=== PATIENT | female | born 1985 | race American Indian/Alaskan Native ===

== ENCOUNTER 2017-03-31 11:28 | Emergency (ER) | payer MEDICAID ==
[~2017-03-31] VITALS: Ht 167.6 cm; Wt 146.5 kg
[~2017-03-31 11:28] MED LIST: IBUP800T PO
[2017-03-31] MEDS ORDERED: SODIUM CHLORIDE FLUSH 10ML SYR IVF ONE (12:30)
[2017-03-31] MEDS ORDERED: LORazepam 2 MG/ML, 1ML IVPush ONE (12:30)
[2017-03-31 12:47] LABS: ASPARTATE AMINO TRANSFERASE 125 U/L (15-37); BLOOD UREA NITROGEN 9 mg/dL (7-18)
[2017-03-31] MEDS ORDERED: LORazepam 2 MG/ML, 1ML ONE (12:57)
[2017-03-31 14:30] VITALS: BP 127/82
== END 2017-03-31 14:52 | disposition home or self-care (01) ==
LOC: ED 14:20
DX: R00.2 Palpitations (principal)
CPT/HCPCS: 36415; 71020; 80053; 83880; 84436; 84443; 84484; 85025; 85379; 93005; 96374; 99285; J2060

== ENCOUNTER 2018-08-17 18:30 | Emergency (ER) | payer MEDICAID ==
[~2018-08-17] VITALS: Ht 167.6 cm; Wt 140.4 kg
[~2018-08-17 18:30] MED LIST changes: +IBUP-1223 PO; -IBUP800T PO
[2018-08-17 18:41] VITALS: BP 181/112
== END 2018-08-17 19:20 | disposition home or self-care (01) ==
LOC: ED 19:00
DX: M79.5 Residual foreign body in soft tissue (principal)
CPT/HCPCS: 29505; 99284

== ENCOUNTER 2019-01-18 09:21 | Emergency (ER) | payer MEDICAID ==
[~2019-01-18] VITALS: Ht 167.6 cm; Wt 120.0 kg
[2019-01-18] MEDS ORDERED: HYDROcodone/APAP 5/325 TABLET PO ONE (09:30)
[2019-01-18 09:35] VITALS: BP 137/62
--- NOTE | 2019-01-18 09:44 | NUR ---
GLF HISTORY OF KNEE SURGERY PT HAS LEFT KNEE PAIN, UNABLE TO BEAR WEIGHT. PT STATES SHE [place].
[2019-01-18] MEDS ORDERED: HYDROcodone/APAP 5/325 TABLET ONE (09:48)
--- NOTE | 2019-01-18 11:20 | NUR ---
PT VERBALIZED DC INSTRUCTIONS. AMBULATED WITH CRUTCHES AND IMMOBILIZER WITHOUT PROBLEMS.
== END 2019-01-18 11:23 | disposition home or self-care (01) ==
LOC: ED 10:06
DX: S83.92XA Sprain of unspecified site of left knee, initial encounter (principal); M25.462 Effusion, left knee; X50.1XXA Overexertion from prolonged static or awkward postures, initial encounter; Y93.89 Activity, other specified; Y92.410 Unspecified street and highway as the place of occurrence of the external cause; Y99.8 Other external cause status
CPT/HCPCS: 29505; 99283

== ENCOUNTER 2019-03-20 13:04 | Outpatient (CLI) | payer MEDICAID ==
[2019-03-20] MEDS ORDERED: BENZ-17 PO (13:37)
[2019-03-20] MEDS ORDERED: IBUP-1221 PO (13:37)
== END 2019-03-20 23:59 | disposition home or self-care (01) ==
LOC: STAR 13:04
PROVIDERS: ATTEND Orthopaedic Surgery
DX: Z02.9 Encounter for administrative examinations, unspecified (principal)

== ENCOUNTER 2019-03-24 11:35 | Day surgery (SDC) | payer MEDICAID ==
[2019-03-20 13:37] VITALS: BP 151/96
[~2019-03-24] VITALS: Ht 167.6 cm; Wt 128.4 kg
[~2019-03-24 11:35] MED LIST changes: +BENZ-17 PO; +IBUP-1221 PO
[2019-03-24] MEDS ORDERED: LACTATED RINGERS 1,000 ML IV SCH (11:58)
[2019-03-24] MEDS ORDERED: APREPITANT 40 MG CAPSULE PO ONE (12:00)
[2019-03-24 12:13] VITALS: BP 151/96
[2019-03-24 12:23] LABS: HCG UR SG 1.022 (1.003-1.030)
[2019-03-24] MEDS ORDERED: MIDAZOLAM 1 MG/ML, 2ML ONE (13:03)
[2019-03-24] MEDS ORDERED: CEFAZOLIN 1,000 MG ONE ×3 (14:07)
[2019-03-24] MEDS ORDERED: PROPOFOL 10 MG/ML, 20ML ONE ×4 (14:07→15:13)
[2019-03-24] MEDS ORDERED: ROCURONIUM 10MG/ML,5ML ONE (14:07)
[2019-03-24] MEDS ORDERED: SUCCINYLCHOLINE 20 MG/ML, 10ML ONE (14:07)
[2019-03-24] MEDS ORDERED: LIDOCAINE-MPF 2% ,5ML ONE (14:07)
[2019-03-24] MEDS ORDERED: ONDANSETRON 2MG/ML, 2ML ONE (14:12)
[2019-03-24] MEDS ORDERED: DEXAMETHASONE 4 MG/ML, 1ML ONE ×2 (14:12→15:16)
[2019-03-24] MEDS ORDERED: LIDOCAINE 1%, 20ML ONE (14:18)
[2019-03-24] MEDS ORDERED: morphine SULFATE/PF 1 MG/ML, 10ML ONE (14:18)
[2019-03-24] MEDS ORDERED: EPINEPHRINE 1 MG/ML, 1ML ONE (14:18)
[2019-03-24] MEDS ORDERED: SUGAMMADEX 200 MG/2 ML IVPush ONE ×2 (14:19→14:20)
[2019-03-24] MEDS ORDERED: FENTANYL PF 100 MCG/2ML ONE ×3 (14:27→15:46)
[2019-03-24] MEDS ORDERED: OXYcodone 5 MG/5 ML ORAL.SOL UDC PO PRN (14:30)
[2019-03-24] MEDS ORDERED: KETOROLAC 30 MG/1 ML IM PRN ×2 (14:30)
[2019-03-24] MEDS ORDERED: MORPHINE SULFATE 4 MG/ML, 1ML IVPush PRN (14:30)
[2019-03-24] MEDS ORDERED: ACETAMINOPHEN 325 MG TABLET PO PRN ×2 (14:30→21:00)
[2019-03-24] MEDS ORDERED: HYDROcodone/APAP 7.5-325MG/15ML UDC PO PRN (14:30)
[2019-03-24] MEDS ORDERED: MEPERIDINE/PF 25MG/0.5ML IVPush PRN (14:30)
[2019-03-24] MEDS ORDERED: KETOROLAC 30 MG/1 ML IV PRN ×2 (14:30)
[2019-03-24] MEDS ORDERED: BACITRACIN 50,000 UNIT ONE (15:07)
[2019-03-24] MEDS ORDERED: ALBUTEROL HFA 90 MCG/SPRAY ONE (15:30)
[2019-03-24] MEDS ORDERED: OXYcodone 5 MG/5 ML ORAL.SOL UDC ONE (15:47)
[2019-03-24] MEDS ORDERED: HYDROmorphone 2 MG/ML, 1ML ONE (15:47)
[2019-03-24] MEDS: FENTANYL PF 100 MCG/2ML IV PRN ×2 (15:49→15:55)
[2019-03-24] MEDS: HYDROmorphone 2 MG/ML, 1ML IVPush PRN ×3 (15:49→16:06)
[2019-03-24] MEDS ORDERED: ONDANSETRON 2MG/ML, 2ML IVPush PRN (20:45)
[2019-03-24] MEDS ORDERED: PROMETHAZINE 25 MG/ML, 1ML IM PRN (21:00)
[2019-03-24] MEDS ORDERED: ONDANSETRON 2MG/ML, 2ML IV PRN (21:00)
[2019-03-24] MEDS ORDERED: morphine SULFATE 10 MG/ML, 1ML IV PRN (21:00)
[2019-03-24] MEDS ORDERED: KETOROLAC 30 MG/1 ML IV SCH (21:00)
[2019-03-24] MEDS ORDERED: OXYcodone/APAP 5/325MG TABLET PO PRN (21:00)
== END 2019-03-24 21:35 | disposition home or self-care (01) ==
LOC: OUT 11:35 → 4NOR 18:45 → OUT 21:35
PROVIDERS: ATTEND Orthopaedic Surgery
DX: Z47.2 Encounter for removal of internal fixation device (principal); M66.862 Spontaneous rupture of other tendons, left lower leg; Z87.891 Personal history of nicotine dependence; Z72.89 Other problems related to lifestyle
CPT/HCPCS: 20680; 27381; 73560; 76000; 81025; G0378; J0171; J0330; J0690; J1100; J1170; J2250; J2405; J2704; J3010; J7120; J8501; J2274

== ENCOUNTER 2019-07-04 16:07 | Emergency (ER) | payer MEDICAID ==
[~2019-07-04] VITALS: Ht 167.6 cm; Wt 124.9 kg
[2019-07-04 16:56] LABS: ALANINE AMINOTRANSFERASE 60 U/L (12-78); ALBUMIN 2.4 g/dL (3.4-5.0); ANION GAP 12 mmol/L (5-15); CALCIUM 7.4 mg/dL (8.5-10.1); CHLORIDE 111 mmol/L (98-107); CREATININE 0.68 mg/dL (0.55-1.02)
[2019-07-04 17:01] LABS: ALKALINE PHOSPHATASE 173 U/L (45-117); BILIRUBIN,TOTAL 3.2 mg/dL (0.2-1.0); TOTAL PROTEIN 8.7 g/dL (6.4-8.2)
[2019-07-04 17:02] VITALS: BP 118/69
--- NOTE | 2019-07-04 17:02 | NUR ---
pt resting in gurney with friend at bedside. call light within reach. no needs at this time. awaiting lab reults
[2019-07-04 17:16] LABS: MEAN CORPUSCULAR HEMOGLOBIN 25.9 pg (27.0-34.8); MEAN CORPUSCULAR HGB CONC 32.3 g/dL (32.4-35.8); MEAN CORPUSCULAR VOLUME 80.1 fL (80-100); MEAN PLATELET VOLUME 9.7 fL (7.4-10.4); PLATELET COUNT 210 x10^3/uL (130-400); RED BLOOD COUNT 3.91 x10^6/uL (3.82-5.3); RED CELL DISTRIBUTION WIDTH 22.7 % (9.6-15.2)
[2019-07-04 17:22] LABS: BASOPHILS # (AUTO) 0.06 x10^3/uL (0-0.1); BASOPHILS % (AUTO) 1 % (0-1); EOSINOPHILS % (AUTO) 6 % (1-7); LYMPHOCYTES # (AUTO) 2.12 x10^3/uL (1-3.4); LYMPHOCYTES % (AUTO) 26 % (22-44); MD MORPH REVIEW ONLY; MONOCYTES # (AUTO) 0.47 x10^3/uL (0.2-0.8); MONOCYTES % (AUTO) 6 % (2-9); NEUTROPHILS # (AUTO) 4.94 x10^3/uL (1.8-6.8); NEUTROPHILS % (AUTO) 61 % (42-75)
[2019-07-04 17:24] LABS: ANISOCYTOSIS 2+; MICROCYTOSIS 1+
[2019-07-04 17:25] LABS: HYPOCHROMIA 1+; POLYCHROMASIA 1+; TARGET CELLS 1+
[2019-07-04 17:26] LABS: <PLATELET ESTIMATE> ADEQUATE; <PLT MORPHOLOGY> NORMAL PLT MORPH
== END 2019-07-04 17:48 | disposition home or self-care (01) ==
LOC: ED 16:25
DX: F10.220 Alcohol dependence with intoxication, uncomplicated (principal); E66.9 Obesity, unspecified
CPT/HCPCS: 36415; 80053; 80307; 83690; 84703; 85025; 99283

== ENCOUNTER 2019-12-06 15:18 | Emergency (ER) | payer MEDICAID ==
[~2019-12-06] VITALS: Ht 165.1 cm; Wt 118.0 kg
--- NOTE | 2019-12-06 15:30 | NUR ---
PT AMBULATORY WITH STEADY GAIT TO ROOM. CHANGING INTO GOWN NOW.
[2019-12-06 15:38] VITALS: BP 98/76
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
[2019-12-06] MEDS ORDERED: LIDOCAINE-MPF 1%, 5ML ONE (16:00)
[2019-12-06] MEDS ORDERED: LIDOCAINE 1%, 10ML INFIL ONE (16:00)
--- NOTE | 2019-12-06 16:23 | NUR ---
PT TO CT NOW.
--- NOTE | 2019-12-06 16:33 | NUR ---
PT BACK FROM CT. RESTING ON [employer]. CONNECTED TO MONITOR.
[2019-12-06] MEDS ORDERED: ONDANSETRON ODT 4 MG ONE (17:07)
--- NOTE | 2019-12-06 17:09 | NUR ---
PT MEDICATED PER EMAR. AWARE OF DC. GETTING DRESSED NOW.
[2019-12-06] MEDS ORDERED: ONDANSETRON ODT 4 MG PO ONE (17:30)
== END 2019-12-06 17:29 | disposition home or self-care (01) ==
LOC: ED 16:50
DX: S01.21XA Laceration without foreign body of nose, initial encounter (principal); W50.0XXA Accidental hit or strike by another person, initial encounter; Y93.89 Activity, other specified; Y92.89 Other specified places as the place of occurrence of the external cause; Y99.8 Other external cause status
CPT/HCPCS: 12051; 70450; 70486; 99284; Q0162; 12041

== ENCOUNTER 2019-12-16 07:48 | Emergency (ER) | payer MEDICAID ==
[~2019-12-16] VITALS: Ht 167.6 cm; Wt 118.0 kg
[2019-12-16 07:52] VITALS: BP 153/86
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
--- NOTE | 2019-12-16 09:02 | NUR ---
PT UPRIGHT ON GURNEY AWAKE & COMFORTABLE, RESPONDS APPROP TO STAFF, NAD WHILE AT REST, COMFORT MEASURES PROVIDED, FAMILY AT BS, CALL LIGHT WITHIN REACH.
--- NOTE | 2019-12-16 09:47 | NUR ---
Patient given discharge instructions and Rx, they have confirmed that they understand the instructions. Patient ambulatory with steady gait.
== END 2019-12-16 09:48 | disposition home or self-care (01) ==
LOC: ED 08:17
DX: L03.116 Cellulitis of left lower limb (principal)
CPT/HCPCS: 99283

== ENCOUNTER 2019-12-29 16:11 | Inpatient (IN) | payer MEDICAID ==
[~2019-12-29] VITALS: Ht 167.6 cm; Wt 127.8 kg
[~2019-12-29 16:11] MED LIST changes: +CLIN300C8 PO; +GUAI600T31 PO
--- NOTE | 2019-12-29 16:21 | NUR ---
pt BIB by [facility] for C/O increase swelling to the left knee. pt verbalized that she was discharged from the hospital yesterday with a diagnosis of cellulitis. pt verbaized that she has been taking her antibodics as perscribed. pt changed into a hospital gown and connected to monitors.
--- NOTE | 2019-12-29 17:02 | NUR ---
dr guy spoke with dr dixon with [facility]
[2019-12-29 17:19] LABS: ALANINE AMINOTRANSFERASE 20 U/L (12-78); ALBUMIN 1.8 g/dL (3.4-5.0); ANION GAP 5 mmol/L (5-15); CALCIUM 7.2 mg/dL (8.5-10.1); CHLORIDE 109 mmol/L (98-107); CREATININE 0.65 mg/dL (0.55-1.02)
[2019-12-29 17:20] LABS: ALKALINE PHOSPHATASE 120 U/L (45-117); BILIRUBIN,TOTAL 2.4 mg/dL (0.2-1.0); TOTAL PROTEIN 7.9 g/dL (6.4-8.2)
[2019-12-29 17:29] LABS: MEAN CORPUSCULAR HEMOGLOBIN 27.8 pg (27.0-34.8); MEAN CORPUSCULAR HGB CONC 32.2 g/dL (32.4-35.8); MEAN CORPUSCULAR VOLUME 86.4 fL (80-100); MEAN PLATELET VOLUME 9.2 fL (7.4-10.4); PLATELET COUNT 133 x10^3/uL (130-400); RED BLOOD COUNT 2.82 x10^6/uL (3.82-5.3); RED CELL DISTRIBUTION WIDTH 20.8 % (9.6-15.2)
[2019-12-29 18:03] LABS: BASOPHILS # (AUTO) 0.01 x10^3/uL (0-0.1); BASOPHILS % (AUTO) 0 % (0-1); EOSINOPHILS # (AUTO) 0.23 x10^3/uL (0-0.4); EOSINOPHILS % (AUTO) 5 % (1-7); LYMPHOCYTES # (AUTO) 1.25 x10^3/uL (1-3.4); LYMPHOCYTES % (AUTO) 29 % (22-44); MD NO; MONOCYTES # (AUTO) 0.66 x10^3/uL (0.2-0.8); MONOCYTES % (AUTO) 16 % (2-9); NEUTROPHILS % (AUTO) 49 % (42-75)
--- NOTE | 2019-12-29 18:19 | NUR ---
pt eating food supplied by sig other. Updated on current POC to be admitted and start IV ABX. pt and sig other agreeable. Requesting single room. Discussed that pt may not be in a single room depending on the floor/needs of the hospital/severity of conditions. pt agreeable.
[2019-12-29] MEDS ORDERED: CLINDAMYCIN PMX 900MG/50ML 50 ML IV ONE (18:30)
[2019-12-29] MEDS ORDERED: CLINDAMYCIN PMX 900MG/50ML 50 ML ONE (18:33)
--- NOTE | 2019-12-29 19:10 | NUR ---
Report from Vicenta SANDOVAL. Pt c/o left knee ache 07/11, side rails up, call light within reach.
--- NOTE | 2019-12-29 19:16 | NUR ---
Report given to Beverly SANDOVAL.
[2019-12-29] MEDS ORDERED: DOCUSATE 100 MG CAPSULE PO PRN (20:00)
[2019-12-29] MEDS ORDERED: VANCOMYCIN PER PHARMACY MC PRN (20:00)
[2019-12-29] MEDS ORDERED: ACETAMINOPHEN 325 MG TABLET PO PRN (20:00)
[2019-12-29] MEDS ORDERED: ONDANSETRON ODT 4 MG PO PRN (20:00)
[2019-12-29] MEDS ORDERED: hydrALAzine 20 MG/ML, 1ML IVPush PRN (20:00)
[2019-12-29] MEDS ORDERED: morphine SULFATE 10 MG/ML, 1ML IVPush PRN (20:00)
[2019-12-29] MEDS ORDERED: POLYETHYLENE GLYCOL 17 GM PACKET PO PRN (20:00)
[2019-12-29] MEDS ORDERED: ONDANSETRON 2MG/ML, 2ML IVPush PRN (20:00)
[2019-12-29] MEDS ORDERED: VANCOMYCIN PMX 1GM/200ML 200 ML IV ONE (20:00)
[2019-12-29] MEDS ORDERED: BISACODYL 10 MG SUPP PR PRN (20:00)
[2019-12-29] MEDS ORDERED: PROMETHAZINE 25 MG/ML, 1ML IM PRN (20:00)
[2019-12-29 20:14] LABS: HCT (SEDRATE) 24.4 % (34.6-47.8)
[2019-12-29 20:26] LABS: C-REACTIVE PROTEIN, QUANT 6.1 mg/dL (0.02-0.49); FREE T4 (FREE THYROXINE) 1.47 ng/dL (0.76-1.46)
[2019-12-29] MEDS ORDERED: PHARMACOKINETIC MONITORING MC PRN (20:30)
[2019-12-29] MEDS ORDERED: PHARMACOKINETIC CONSULTATION MC ONE (20:30)
[2019-12-29 20:34] VITALS: BP 127/79
[2019-12-29] MEDS: AMPICILLIN/SULBACTAM 3 GM in SODIUM CHLORIDE 0.9% 100 ML IV SCH (22:07)
[2019-12-29] MEDS: HYDROcodone/APAP 5/325 TABLET PO PRN (22:07)
[2019-12-29] MEDS: HEPARIN 5,000 UNITS/ML, 1ML SQ SCH (22:08)
[2019-12-29] MEDS: VANCOMYCIN 1,700 MG in SODIUM CHLORIDE 0.9% 250 ML IV SCH (23:18)
[2019-12-30 01:00] VITALS: BP 130/82
[2019-12-30] MEDS: AMPICILLIN/SULBACTAM 3 GM in SODIUM CHLORIDE 0.9% 100 ML IV SCH ×3 (04:30→18:05)
[2019-12-30] MEDS: HEPARIN 5,000 UNITS/ML, 1ML SQ SCH ×3 (06:29→23:02)
[2019-12-30 06:50] LABS: MEAN CORPUSCULAR HGB CONC 31.9 g/dL (32.4-35.8); MEAN CORPUSCULAR VOLUME 87.7 fL (80-100); MEAN PLATELET VOLUME 8.7 fL (7.4-10.4); PLATELET COUNT 131 x10^3/uL (130-400); RED BLOOD COUNT 2.67 x10^6/uL (3.82-5.3); RED CELL DISTRIBUTION WIDTH 20.6 % (9.6-15.2)
[2019-12-30 06:51] LABS: ALANINE AMINOTRANSFERASE 18 U/L (12-78); ALBUMIN 1.7 g/dL (3.4-5.0); ANION GAP 4 mmol/L (5-15); CALCIUM 7.2 mg/dL (8.5-10.1); CHLORIDE 112 mmol/L (98-107)
[2019-12-30 06:54] LABS: ALKALINE PHOSPHATASE 99 U/L (45-117); BILIRUBIN,TOTAL 2.6 mg/dL (0.2-1.0); CHOL/HDL RATIO 3.7; CHOLESTEROL, TOTAL 78 mg/dL (140-239); CREATININE 0.59 mg/dL (0.55-1.02); HDL CHOL % 27 % (28-40); HDL CHOLESTEROL (DIRECT) 21 mg/dL (40-60); LDL CHOLESTEROL,CALCULATED 43 mg/dL (54-169); TOTAL PROTEIN 7.4 g/dL (6.4-8.2); TRIGLYCERIDES 70 mg/dL (50-200); VLDL CHOLESTEROL 14 mg/dL (0-25)
[2019-12-30 07:25] LABS: MD YES
[2019-12-30 07:28] LABS: EOS#(MANUAL) 0.22 x10^3/uL (0.0-0.4); EOS% (MANUAL) 8 % (1-7); LYMPH#(MANUAL) 1.06 x10^3/uL (1-3.4); LYMPHS% (MANUAL) 38 % (22-44); MONOS#(MANUAL) 0.14 x10^3/uL (0.3-2.7); MONOS% (MANUAL) 5 % (2-9); SEG#(MANUAL) 1.37 x10^3/uL (1.8-6.8); SEGS% (MANUAL) 49 % (42-75)
[2019-12-30 07:29] LABS: <PLATELET ESTIMATE> ADEQUATE; <PLT MORPHOLOGY> NORMAL PLT MORPH; ANISOCYTOSIS 2+; POLYCHROMASIA 1+
[2019-12-30] MEDS ORDERED: MAGNESIUM SULFATE 3 GM in SODIUM CHLORIDE 0.9% 100 ML IV ONE (08:30)
[2019-12-30 08:49] VITALS: BP 135/85
[2019-12-30] MEDS ORDERED: GADOTERATE 7.5 MMOL/15 ML SYR ONE (13:33)
[2019-12-30] MEDS: VANCOMYCIN 1,700 MG in SODIUM CHLORIDE 0.9% 250 ML IV SCH ×2 (13:47→23:02)
[2019-12-30 16:30] VITALS: BP 130/81
[2019-12-30] MEDS ORDERED: FERROUS GLUCONATE 324 MG TABLET ONE (17:46)
[2019-12-30] MEDS: FERROUS GLUCONATE 324 MG TABLET PO SCH (18:05)
[2019-12-30 19:30] VITALS: BP 117/74
[2019-12-31] MEDS: AMPICILLIN/SULBACTAM 3 GM in SODIUM CHLORIDE 0.9% 100 ML IV SCH ×4 (00:33→20:54)
[2019-12-31] MEDS: HYDROcodone/APAP 5/325 TABLET PO PRN (01:48)
[2019-12-31 02:10] VITALS: BP 131/78
[2019-12-31 05:53] LABS: MEAN CORPUSCULAR HEMOGLOBIN 27.9 pg (27.0-34.8); MEAN CORPUSCULAR VOLUME 87.2 fL (80-100); MEAN PLATELET VOLUME 8.8 fL (7.4-10.4); PLATELET COUNT 141 x10^3/uL (130-400); RED BLOOD COUNT 2.66 x10^6/uL (3.82-5.3); RED CELL DISTRIBUTION WIDTH 21.5 % (9.6-15.2)
[2019-12-31] MEDS: HEPARIN 5,000 UNITS/ML, 1ML SQ SCH ×3 (05:56→20:54)
[2019-12-31 05:57] LABS: ALBUMIN 1.6 g/dL (3.4-5.0); CALCIUM 7.2 mg/dL (8.5-10.1); CHLORIDE 112 mmol/L (98-107)
[2019-12-31 06:04] LABS: ALANINE AMINOTRANSFERASE 18 U/L (12-78); ALKALINE PHOSPHATASE 109 U/L (45-117); ANION GAP 4 mmol/L (5-15); BILIRUBIN,TOTAL 2.5 mg/dL (0.2-1.0); CREATININE 0.57 mg/dL (0.55-1.02); TOTAL PROTEIN 7.5 g/dL (6.4-8.2)
[2019-12-31 06:21] LABS: MD YES
[2019-12-31 06:26] LABS: <PLATELET ESTIMATE> ADEQUATE; <PLT MORPHOLOGY> NORMAL PLT MORPH; ANISOCYTOSIS 2+; BASOS#(MANUAL) 0.05 x10^3/uL (0-0.1); BASOS% (MANUAL) 2 % (0-1); EOS#(MANUAL) 0.28 x10^3/uL (0.0-0.4); EOS% (MANUAL) 12 % (1-7); LYMPH#(MANUAL) 0.94 x10^3/uL (1-3.4); LYMPHS% (MANUAL) 41 % (22-44); MONOS#(MANUAL) 0.39 x10^3/uL (0.3-2.7); MONOS% (MANUAL) 17 % (2-9); MYELOCYTES# (MANUAL) 0.02 x10^3/uL (0-0); MYELOCYTES% (MANUAL) 1 % (0-0); POLYCHROMASIA 1+; SEG#(MANUAL) 0.62 x10^3/uL (1.8-6.8); SEGS% (MANUAL) 27 % (42-75)
[2019-12-31 09:08] VITALS: BP 118/73
[2019-12-31] MEDS: FERROUS GLUCONATE 324 MG TABLET PO SCH ×2 (09:16→17:06)
[2019-12-31] MEDS: VANCOMYCIN 1,700 MG in SODIUM CHLORIDE 0.9% 250 ML IV SCH ×2 (11:28→23:23)
[2019-12-31 13:26] VITALS: BP 120/78
[2019-12-31 20:30] VITALS: BP 127/82
[2019-12-31] MEDS: BENZONATATE 100 MG CAPSULE PO PRN (23:23)
[2020-01-01 01:30] VITALS: BP 112/72
[2020-01-01] MEDS: AMPICILLIN/SULBACTAM 3 GM in SODIUM CHLORIDE 0.9% 100 ML IV SCH ×4 (03:07→21:29)
[2020-01-01] MEDS: HEPARIN 5,000 UNITS/ML, 1ML SQ SCH ×3 (05:05→23:40)
[2020-01-01 05:41] LABS: MEAN CORPUSCULAR HEMOGLOBIN 28.1 pg (27.0-34.8); MEAN CORPUSCULAR HGB CONC 32.4 g/dL (32.4-35.8); MEAN CORPUSCULAR VOLUME 86.6 fL (80-100); MEAN PLATELET VOLUME 8.7 fL (7.4-10.4); PLATELET COUNT 134 x10^3/uL (130-400); RED BLOOD COUNT 2.75 x10^6/uL (3.82-5.3); RED CELL DISTRIBUTION WIDTH 21.3 % (9.6-15.2)
[2020-01-01 05:50] LABS: ANION GAP 6 mmol/L (5-15); CALCIUM 7.1 mg/dL (8.5-10.1); CHLORIDE 110 mmol/L (98-107); CREATININE 0.63 mg/dL (0.55-1.02)
[2020-01-01 06:13] LABS: MD YES
[2020-01-01 06:24] LABS: ANISOCYTOSIS 2+; EOS#(MANUAL) 0.24 x10^3/uL (0.0-0.4); EOS% (MANUAL) 11 % (1-7); LYMPH#(MANUAL) 1.45 x10^3/uL (1-3.4); LYMPHS% (MANUAL) 66 % (22-44); MONOS#(MANUAL) 0.15 x10^3/uL (0.3-2.7); MONOS% (MANUAL) 7 % (2-9); NRBC % (MANUAL) 1 % (0-1); POLYCHROMASIA 1+; SEG#(MANUAL) 0.35 x10^3/uL (1.8-6.8); SEGS% (MANUAL) 16 % (42-75)
[2020-01-01 06:25] LABS: <PLATELET ESTIMATE> ADEQUATE; <PLT MORPHOLOGY> NORMAL PLT MORPH
[2020-01-01 08:42] VITALS: BP 144/77
[2020-01-01] MEDS: FERROUS GLUCONATE 324 MG TABLET PO SCH ×2 (08:53→15:38)
[2020-01-01] MEDS: MUPIROCIN OINT 2%, 22GM TP SCH (08:54)
[2020-01-01] MEDS: VANCOMYCIN 1,700 MG in SODIUM CHLORIDE 0.9% 250 ML IV SCH (11:37)
[2020-01-01] MEDS: BENZONATATE 100 MG CAPSULE PO PRN (11:42)
[2020-01-01 12:53] VITALS: BP 117/71
[2020-01-01 19:42] VITALS: BP 105/66
[2020-01-01] MEDS: VANCOMYCIN 2,000 MG in SODIUM CHLORIDE 0.9% 500 ML IV SCH (23:40)
[2020-01-02 01:39] VITALS: BP 125/84
[2020-01-02] MEDS: AMPICILLIN/SULBACTAM 3 GM in SODIUM CHLORIDE 0.9% 100 ML IV SCH ×4 (03:19→20:55)
[2020-01-02 05:31] LABS: ANION GAP 6 mmol/L (5-15); CALCIUM 7.4 mg/dL (8.5-10.1); CHLORIDE 109 mmol/L (98-107)
[2020-01-02 05:32] LABS: CREATININE 0.53 mg/dL (0.55-1.02)
[2020-01-02 05:49] LABS: MEAN CORPUSCULAR HEMOGLOBIN 28.1 pg (27.0-34.8); MEAN CORPUSCULAR HGB CONC 31.5 g/dL (32.4-35.8); MEAN CORPUSCULAR VOLUME 89.1 fL (80-100); MEAN PLATELET VOLUME 8.2 fL (7.4-10.4); PLATELET COUNT 141 x10^3/uL (130-400); RED BLOOD COUNT 2.72 x10^6/uL (3.82-5.3); RED CELL DISTRIBUTION WIDTH 21.5 % (9.6-15.2)
[2020-01-02 06:37] LABS: MD SCAN
[2020-01-02 06:38] LABS: BASOPHILS # (AUTO) 0.03 x10^3/uL (0-0.1); BASOPHILS % (AUTO) 1 % (0-1); EOSINOPHILS # (AUTO) 0.18 x10^3/uL (0-0.4); EOSINOPHILS % (AUTO) 6 % (1-7); LYMPHOCYTES # (AUTO) 1.38 x10^3/uL (1-3.4); LYMPHOCYTES % (AUTO) 45 % (22-44); MONOCYTES # (AUTO) 0.47 x10^3/uL (0.2-0.8); MONOCYTES % (AUTO) 15 % (2-9); NEUTROPHILS # (AUTO) 1.02 x10^3/uL (1.8-6.8); NEUTROPHILS % (AUTO) 33 % (42-75)
[2020-01-02 07:47] VITALS: BP 137/82
[2020-01-02] MEDS: HEPARIN 5,000 UNITS/ML, 1ML SQ SCH ×3 (08:00→23:38)
[2020-01-02] MEDS: FERROUS GLUCONATE 324 MG TABLET PO SCH ×2 (09:42→15:36)
[2020-01-02] MEDS: MUPIROCIN OINT 2%, 22GM TP SCH (09:42)
[2020-01-02] MEDS: VANCOMYCIN 2,000 MG in SODIUM CHLORIDE 0.9% 500 ML IV SCH ×2 (11:14→23:18)
[2020-01-02 14:22] VITALS: BP 113/68
[2020-01-02 14:31] LABS: BANDS%(MANUAL) 2 % (0-7); EOS% (MANUAL) 11 % (1-7); LYMPHS% (MANUAL) 38 % (22-44); MONOS% (MANUAL) 13 % (2-9); SEGS% (MANUAL) 36 % (42-75)
[2020-01-02 14:36] LABS: BAND#(MANUAL) 0.06 x10^3/uL; SEG#(MANUAL) 1.12 x10^3/uL (1.8-6.8)
[2020-01-02 14:37] LABS: <PLATELET ESTIMATE> ADEQUATE; ANISOCYTOSIS 1+; EOS#(MANUAL) 0.34 x10^3/uL (0.0-0.4); LYMPH#(MANUAL) 1.18 x10^3/uL (1-3.4)
[2020-01-02 14:38] LABS: LARGE PLATELETS 1+
[2020-01-02 14:39] LABS: OVALOCYTES 1+; TARGET CELLS 1+
[2020-01-02 14:40] LABS: POLYCHROMASIA 1+
[2020-01-02 20:40] VITALS: BP 127/74
[2020-01-03 00:04] VITALS: BP 124/79
[2020-01-03] MEDS: AMPICILLIN/SULBACTAM 3 GM in SODIUM CHLORIDE 0.9% 100 ML IV SCH ×3 (03:12→18:04)
[2020-01-03 04:42] LABS: MEAN CORPUSCULAR HEMOGLOBIN 27.8 pg (27.0-34.8); MEAN CORPUSCULAR HGB CONC 32.1 g/dL (32.4-35.8); MEAN CORPUSCULAR VOLUME 86.5 fL (80-100); MEAN PLATELET VOLUME 8.4 fL (7.4-10.4); PLATELET COUNT 150 x10^3/uL (130-400); RED BLOOD COUNT 2.75 x10^6/uL (3.82-5.3)
[2020-01-03 04:50] LABS: ALBUMIN 1.7 g/dL (3.4-5.0); ANION GAP 6 mmol/L (5-15); CALCIUM 7.4 mg/dL (8.5-10.1); CHLORIDE 110 mmol/L (98-107)
[2020-01-03 04:54] LABS: ALANINE AMINOTRANSFERASE 15 U/L (12-78); ALKALINE PHOSPHATASE 105 U/L (45-117); BILIRUBIN,TOTAL 2.6 mg/dL (0.2-1.0); CREATININE 0.59 mg/dL (0.55-1.02); TOTAL PROTEIN 7.7 g/dL (6.4-8.2)
[2020-01-03 05:04] LABS: MD YES
[2020-01-03 05:08] LABS: ANISOCYTOSIS 2+; EOS% (MANUAL) 8 % (1-7); LYMPH#(MANUAL) 0.96 x10^3/uL (1-3.4); LYMPHS% (MANUAL) 26 % (22-44); MONOS% (MANUAL) 8 % (2-9); POLYCHROMASIA 1+; SEG#(MANUAL) 2.15 x10^3/uL (1.8-6.8); SEGS% (MANUAL) 58 % (42-75)
[2020-01-03 05:09] LABS: HYPOCHROMIA 1+; TEAR DROPS 1+
[2020-01-03 05:10] LABS: MICROCYTOSIS 1+
[2020-01-03 05:11] LABS: <PLATELET ESTIMATE> ADEQUATE; <PLT MORPHOLOGY> NORMAL PLT MORPH
[2020-01-03] MEDS: HEPARIN 5,000 UNITS/ML, 1ML SQ SCH ×2 (08:00→16:00)
[2020-01-03 08:41] VITALS: BP 122/75
[2020-01-03] MEDS: FERROUS GLUCONATE 324 MG TABLET PO SCH ×2 (09:46→15:23)
[2020-01-03] MEDS: MUPIROCIN OINT 2%, 22GM TP SCH (09:46)
[2020-01-03] MEDS: VANCOMYCIN 2,000 MG in SODIUM CHLORIDE 0.9% 500 ML IV SCH (14:00)
[2020-01-03 14:26] VITALS: BP 124/79
[2020-01-03] MEDS: HYDROcodone/APAP 5/325 TABLET PO PRN (15:25)
[2020-01-03] MEDS: SODIUM CHLORIDE 0.9% IVPB SCH (20:19)
[2020-01-03] MEDS: DAPTOMYCIN IVPB SCH (20:19)
[2020-01-03 20:25] VITALS: BP 106/63
[2020-01-04 02:45] VITALS: BP 119/76
[2020-01-04 05:37] LABS: ANION GAP 5 mmol/L (5-15); CALCIUM 7.2 mg/dL (8.5-10.1); CHLORIDE 111 mmol/L (98-107)
[2020-01-04 05:38] LABS: MEAN CORPUSCULAR HEMOGLOBIN 28.3 pg (27.0-34.8); MEAN CORPUSCULAR HGB CONC 31.8 g/dL (32.4-35.8); MEAN CORPUSCULAR VOLUME 88.9 fL (80-100); MEAN PLATELET VOLUME 8.4 fL (7.4-10.4); PLATELET COUNT 153 x10^3/uL (130-400); RED CELL DISTRIBUTION WIDTH 22.5 % (9.6-15.2)
[2020-01-04 05:39] LABS: CREATINE KINASE, TOTAL 46 U/L (26-192)
[2020-01-04 06:01] LABS: BASOPHILS # (AUTO) 0.06 x10^3/uL (0-0.1); BASOPHILS % (AUTO) 1 % (0-1); EOSINOPHILS # (AUTO) 0.26 x10^3/uL (0-0.4); EOSINOPHILS % (AUTO) 6 % (1-7); LYMPHOCYTES # (AUTO) 1.65 x10^3/uL (1-3.4); LYMPHOCYTES % (AUTO) 37 % (22-44); MD SCAN; MONOCYTES # (AUTO) 0.41 x10^3/uL (0.2-0.8); MONOCYTES % (AUTO) 9 % (2-9); NEUTROPHILS # (AUTO) 2.09 x10^3/uL (1.8-6.8); NEUTROPHILS % (AUTO) 47 % (42-75)
[2020-01-04] MEDS: HEPARIN 5,000 UNITS/ML, 1ML SQ SCH ×4 (08:00→23:03)
[2020-01-04] MEDS: FERROUS GLUCONATE 324 MG TABLET PO SCH ×2 (08:25→18:07)
[2020-01-04] MEDS: CHOLECALCIFEROL 1,000 UNIT TABLET PO SCH (08:25)
[2020-01-04] MEDS: MUPIROCIN OINT 2%, 22GM TP SCH (08:26)
[2020-01-04 09:00] VITALS: BP 134/82
[2020-01-04] MEDS: HYDROcodone/APAP 5/325 TABLET PO PRN ×2 (13:30→20:42)
[2020-01-04 14:50] VITALS: BP 149/81
[2020-01-04] MEDS: DAPTOMYCIN IVPB SCH (19:28)
[2020-01-04] MEDS: SODIUM CHLORIDE 0.9% IVPB SCH (19:28)
[2020-01-04 20:07] VITALS: BP 108/66
[2020-01-05 01:01] VITALS: BP 121/68
[2020-01-05 06:52] VITALS: BP 134/78
[2020-01-05] MEDS: HEPARIN 5,000 UNITS/ML, 1ML SQ SCH ×3 (08:00→22:58)
[2020-01-05] MEDS: CHOLECALCIFEROL 1,000 UNIT TABLET PO SCH (08:42)
[2020-01-05] MEDS: FERROUS GLUCONATE 324 MG TABLET PO SCH (08:42)
[2020-01-05] MEDS: MUPIROCIN OINT 2%, 22GM TP SCH (08:43)
[2020-01-05 11:52] LABS: ALBUMIN 1.6 g/dL (3.4-5.0); ANION GAP 4 mmol/L (5-15); CALCIUM 7.3 mg/dL (8.5-10.1); CHLORIDE 110 mmol/L (98-107)
[2020-01-05 11:56] LABS: ALANINE AMINOTRANSFERASE 15 U/L (12-78); ALKALINE PHOSPHATASE 115 U/L (45-117); BILIRUBIN,TOTAL 2.3 mg/dL (0.2-1.0); CREATININE 0.65 mg/dL (0.55-1.02); TOTAL PROTEIN 7.9 g/dL (6.4-8.2)
[2020-01-05 12:53] VITALS: BP 125/73
[2020-01-05] MEDS ORDERED: LIDOCAINE 1%, 10ML ONE (14:42)
[2020-01-05] MEDS: HYDROcodone/APAP 5/325 TABLET PO PRN ×2 (15:36→20:38)
[2020-01-05] MEDS: IRON SUCROSE COMPLEX 100MG/5ML IV SCH (16:30)
[2020-01-05] MEDS: DAPTOMYCIN IVPB SCH (19:52)
[2020-01-05] MEDS: SODIUM CHLORIDE 0.9% IVPB SCH (19:52)
[2020-01-05 20:04] VITALS: BP 127/74
[2020-01-06 00:42] VITALS: BP 119/71
[2020-01-06] MEDS: HYDROcodone/APAP 5/325 TABLET PO PRN ×3 (02:57→15:02)
[2020-01-06 07:58] VITALS: BP 129/70
[2020-01-06] MEDS: HEPARIN 5,000 UNITS/ML, 1ML SQ SCH ×2 (08:00→16:00)
[2020-01-06] MEDS: IRON SUCROSE COMPLEX 100MG/5ML IV SCH (08:43)
[2020-01-06] MEDS: CHOLECALCIFEROL 1,000 UNIT TABLET PO SCH (08:44)
[2020-01-06] MEDS: MUPIROCIN OINT 2%, 22GM TP SCH (08:44)
[2020-01-06] MEDS ORDERED: MUPI22OI2 TP (12:50)
[2020-01-06] MEDS ORDERED: DAPT500V3 IV (12:50)
[2020-01-06] MEDS ORDERED: CHOL10003 PO (12:50)
[2020-01-06] MEDS ORDERED: FERR324T5 PO (12:50)
[2020-01-06] MEDS ORDERED: IBUP-1222 PO (12:50)
[2020-01-06 13:25] VITALS: BP 107/63
[2020-01-06] MEDS: DAPTOMYCIN IVPB SCH (18:00)
[2020-01-06] MEDS: SODIUM CHLORIDE 0.9% IVPB SCH (18:00)
== END 2020-01-06 19:30 | disposition home or self-care (01) | DRG 351 ==
LOC: ED 18:00 → EDIP 18:10 → ED 19:15 → 3N 19:51
PROVIDERS: ADMIT Internal Medicine; ATTEND Internal Medicine
PROC: 02HV33Z Insertion of Infusion Device into Superior Vena Cava, Percutaneous Approach (ICD-10-PCS; principal; 2020-01-06)
PROC: B548ZZA Ultrasonography of Superior Vena Cava, Guidance (ICD-10-PCS; 2020-01-06)
PROC: B5181ZA Fluoroscopy of Superior Vena Cava using Low Osmolar Contrast, Guidance (ICD-10-PCS; 2020-01-06)
DX: M71.162 Other infective bursitis, left knee (principal); D70.9 Neutropenia, unspecified; E66.01 Morbid (severe) obesity due to excess calories; E88.09 Other disorders of plasma-protein metabolism, not elsewhere classified; L03.116 Cellulitis of left lower limb; Z68.42 Body mass index [BMI] 45.0-49.9, adult; D63.8 Anemia in other chronic diseases classified elsewhere; F10.10 Alcohol abuse, uncomplicated; B95.7 Other staphylococcus as the cause of diseases classified elsewhere; Y90.9 Presence of alcohol in blood, level not specified; K80.20 Calculus of gallbladder without cholecystitis without obstruction; M19.90 Unspecified osteoarthritis, unspecified site; Z16.24 Resistance to multiple antibiotics; Z59.0 Homelessness
CPT/HCPCS: 20606; 36415; 36573; 71045; 76700; 76942; 80048; 80053; 80061; 80202; 82306; 82550; 82607; 82728; 83036; 83540; 83550; 83735; 84145; 84439; 84443; 84466; 85025; 85651; 86140; 87040; 87070; 87075; 87077; 87186; 87205; 93306; 93356; 99285; G0378; J0295; J0878; J1644; J1756; J3370; J3475; A9575; C1751; J7040; J7050

== ENCOUNTER 2020-01-24 19:38 | Emergency (ER) | payer MEDICAID ==
[~2020-01-24] VITALS: Ht 167.6 cm; Wt 116.4 kg
[~2020-01-24 19:38] MED LIST changes: +CHOL10003 PO; +DAPT500V3 IV; +FERR324T5 PO; +IBUP-1222 PO; +MUPI22OI2 TP
[2020-01-24 20:08] VITALS: BP 139/76
--- NOTE | 2020-01-24 20:21 | NUR ---
Pt wants to have her PICC line removed.
--- NOTE | 2020-01-24 21:00 | NUR ---
Pt not in room, may have left ER.
== END 2020-01-24 22:04 ==
LOC: ED 20:00
DX: Z45.2 Encounter for adjustment and management of vascular access device (principal)
CPT/HCPCS: 99281

== ENCOUNTER 2020-01-26 13:12 | Emergency (ER) | payer MEDICAID ==
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
== END 2020-01-26 14:04 | disposition left against medical advice (07) ==
LOC: ED 13:58
DX: Z45.2 Encounter for adjustment and management of vascular access device (principal); Z53.21 Procedure and treatment not carried out due to patient leaving prior to being seen by health care provider

== ENCOUNTER 2020-01-29 07:37 | Emergency (ER) | payer MEDICAID ==
[~2020-01-29] VITALS: Ht 167.6 cm; Wt 116.3 kg
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
--- NOTE | 2020-01-29 08:50 | NUR ---
PT TO RAD.
[2020-01-29] MEDS ORDERED: NEOSPORIN OINT. PKT 1 PACKET ONE (09:31)
[2020-01-29 10:05] VITALS: BP 148/80
--- NOTE | 2020-01-29 10:06 | NUR ---
VS STABLE. PT SITTING ON GURNEY W/ CALL LIGHT IN REACH. SLEEPING ON FLOOR. AWAITING RAD RESULTS.
[2020-01-29] MEDS ORDERED: DIPH,PERTUSS(ACELL),TET VAC/PF 0.5 ML IM-VACC ONE ×2 (10:30→10:37)
--- NOTE | 2020-01-29 10:54 | NUR ---
Patient given discharge instructions and tdap information sheet and they have confirmed that they understand the instructions. Patient ambulatory with steady gait.
== END 2020-01-29 10:58 | disposition home or self-care (01) ==
LOC: ED 10:55
DX: S01.01XA Laceration without foreign body of scalp, initial encounter (principal); S39.012A Strain of muscle, fascia and tendon of lower back, initial encounter; S29.012A Strain of muscle and tendon of back wall of thorax, initial encounter; S00.12XA Contusion of left eyelid and periocular area, initial encounter; E66.9 Obesity, unspecified; Y00.XXXA Assault by blunt object, initial encounter; Y93.89 Activity, other specified; Y92.410 Unspecified street and highway as the place of occurrence of the external cause; Y99.8 Other external cause status
CPT/HCPCS: 70450; 70486; 72072; 72110; 72125; 90471; 90715

== ENCOUNTER 2020-01-29 21:14 | Emergency (ER) | payer MEDICAID ==
[~2020-01-29] VITALS: Ht 167.6 cm; Wt 118.0 kg
[2020-01-29 21:22] VITALS: BP 146/71
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
--- NOTE | 2020-01-29 21:56 | NUR ---
Patient's face cleaned up. Discharge instructions given. All questions and concerns addressed. Patient ambulatory with a steady gait. Belongings with patient.
== END 2020-01-29 21:58 | disposition home or self-care (01) ==
LOC: ED 21:50
DX: S01.01XA Laceration without foreign body of scalp, initial encounter (principal); Z72.9 Problem related to lifestyle, unspecified; Y08.89XA Assault by other specified means, initial encounter; Y93.89 Activity, other specified; Y92.009 Unspecified place in unspecified non-institutional (private) residence as the place of occurrence of the external cause; Y99.8 Other external cause status
CPT/HCPCS: 99283

== ENCOUNTER 2020-04-13 13:28 | Inpatient (IN) | payer MEDICAID ==
[~2020-04-13] VITALS: Ht 167.6 cm; Wt 121.5 kg
[2020-04-13] MEDS ORDERED: KETOROLAC 30 MG/1 ML IM ONE (14:00)
[2020-04-13] MEDS ORDERED: OXYcodone/APAP 5/325MG TABLET PO ONE (14:00)
[2020-04-13] MEDS ORDERED: DIAZEPAM 5 MG TABLET PO ONE (14:00)
--- NOTE | 2020-04-13 14:00 | NUR ---
BREAK RN: PT TO RADIOLOGY WITH TECH TRANSPORT
[2020-04-13] MEDS ORDERED: KETOROLAC 30 MG/1 ML ONE (14:01)
[2020-04-13] MEDS ORDERED: DIAZEPAM 5 MG TABLET ONE (14:01)
[2020-04-13] MEDS ORDERED: OXYcodone/APAP 5/325MG TABLET ONE (14:02)
[2020-04-13 14:17] LABS: ALBUMIN 1.5 g/dL (3.4-5.0); ANION GAP 13 mmol/L (5-15); CALCIUM 7.1 mg/dL (8.5-10.1); CHLORIDE 98 mmol/L (98-107); CREATININE 3.22 mg/dL (0.55-1.02)
[2020-04-13 14:19] LABS: CREATINE KINASE, TOTAL 67 U/L (26-192)
[2020-04-13] MEDS ORDERED: VANCOMYCIN PER PHARMACY MC ONE (14:30)
[2020-04-13] MEDS ORDERED: SODIUM CHLORIDE FLUSH 10ML SYR IVF ONE (14:30)
[2020-04-13] MEDS ORDERED: NS + 40MEQ KCL 1,000 ML IV ONE ×2 (14:30→15:04)
[2020-04-13] MEDS ORDERED: AMPICILLIN/SULBACTAM 3 GM in SODIUM CHLORIDE 0.9% 100 ML IV ONE (14:30)
[2020-04-13 14:47] LABS: MD YES; MEAN CORPUSCULAR HEMOGLOBIN 32.1 pg (27.0-34.8); MEAN CORPUSCULAR HGB CONC 33.7 g/dL (32.4-35.8); MEAN CORPUSCULAR VOLUME 95.2 fL (80-100); MEAN PLATELET VOLUME 9.6 fL (7.4-10.4); RED BLOOD COUNT 2.87 x10^6/uL (3.82-5.3); RED CELL DISTRIBUTION WIDTH 22.5 % (9.6-15.2)
[2020-04-13 14:57] LABS: ANISOCYTOSIS 1+; BAND#(MANUAL) 0.62 x10^3/uL; BANDS%(MANUAL) 7 % (0-7); BASOS#(MANUAL) 0.09 x10^3/uL (0-0.1); BASOS% (MANUAL) 1 % (0-1); EOS#(MANUAL) 0.09 x10^3/uL (0.0-0.4); EOS% (MANUAL) 1 % (1-7); HYPOCHROMIA 1+; LYMPH#(MANUAL) 0.62 x10^3/uL (1-3.4); LYMPHS% (MANUAL) 7 % (22-44); MONOS#(MANUAL) 0.62 x10^3/uL (0.3-2.7); MONOS% (MANUAL) 7 % (2-9); SEG#(MANUAL) 6.78 x10^3/uL (1.8-6.8); SEGS% (MANUAL) 77 % (42-75)
[2020-04-13 14:58] LABS: <PLATELET ESTIMATE> DECREASED; POLYCHROMASIA 1+; TARGET CELLS 1+
[2020-04-13 14:59] LABS: <PLT MORPHOLOGY> NORMAL PLT MORPH
[2020-04-13 15:01] LABS: PLATELET COUNT 39 x10^3/uL (130-400)
--- NOTE | 2020-04-13 15:01 | NUR ---
PT UPRIGHT ON GURNEY AWAKE & MORE COMFORTABLE AFTER PAIN MEDS, WATCHING TV, RESPONDS APPROP TO STAFF, NAD AT REST, COMFORT MEASURES PROVIDED, CALL LIGHT WITHIN REACH.
[2020-04-13 15:40] LABS: INTERNATIONAL NORMALIZED RATIO 1.73 (0.93-1.1); PROTHROMBIN TIME 18.4 Seconds (9.6-11.5)
[2020-04-13] MEDS ORDERED: PHARMACOKINETIC CONSULTATION MC ONE (16:00)
[2020-04-13] MEDS ORDERED: PHARMACOKINETIC MONITORING MC PRN (16:00)
[2020-04-13] MEDS ORDERED: VANCOMYCIN 2,500 MG in SODIUM CHLORIDE 0.9% 500 ML IV ONE (16:00)
--- NOTE | 2020-04-13 16:00 | NUR ---
PT REMAINS UPRIGHT ON GURNEY AWAKE & COMFORTABLE WATCHING TV, RESPONDS APPROP TO STAFF, NAD AT REST, COMFORT MEASURES PROVIDED, CALL LIGHT WITHIN REACH.
[2020-04-13] MEDS ORDERED: hydrALAzine 20 MG/ML, 1ML IVPush PRN (16:30)
[2020-04-13] MEDS ORDERED: ONDANSETRON 2MG/ML, 2ML IVPush PRN (16:30)
[2020-04-13] MEDS ORDERED: ACETAMINOPHEN 325 MG TABLET PO PRN (16:30)
[2020-04-13] MEDS ORDERED: PROMETHAZINE 25 MG/ML, 1ML IM PRN (16:30)
[2020-04-13] MEDS ORDERED: morphine SULFATE 10 MG/ML, 1ML IVPush PRN (16:30)
[2020-04-13] MEDS ORDERED: LABETALOL 5MG/ML, 20ML IVPush PRN (16:30)
[2020-04-13] MEDS ORDERED: SODIUM CHLORIDE 0.9% 1,000 ML IV SCH (17:00)
--- NOTE | 2020-04-13 17:02 | NUR ---
PT UPRIGHT ON GURNEY AWAKE & COMFORTABLE ("BACK DOESN'T HURT & KNEES DON'T HURT MUCH"), WATCHING TV, RESPONDS APPROP TO STAFF, NAD AT REST, NO NEEDS AT TIME, CALL LIGHT WITHIN REACH.
[2020-04-13 17:09] LABS: CREATINE KINASE, TOTAL 60 U/L (26-192)
[2020-04-13] MEDS ORDERED: POTASSIUM CHLORIDE 20 MEQ TAB.ER.PRT ONE (17:19)
[2020-04-13] MEDS ORDERED: CALCIUM CARBONATE 500 MG TAB.CHEW ONE (17:19)
[2020-04-13] MEDS: CALCIUM CARBONATE 500 MG TAB.CHEW PO SCH ×2 (17:22→21:02)
[2020-04-13] MEDS: POTASSIUM CHLORIDE 20 MEQ TAB.ER.PRT PO SCH (17:22)
--- NOTE | 2020-04-13 17:47 | NUR ---
[facility]. Report called to Sheryl.
[2020-04-13] MEDS ORDERED: SODIUM CHLORIDE 0.9% 1,000 ML IV ONE (18:30)
[2020-04-13 19:50] VITALS: BP 112/74
[2020-04-13] MEDS ORDERED: LIDOCAINE 1%, 10ML ONE (20:05)
[2020-04-13] MEDS: AMPICILLIN/SULBACTAM 1,500 MG in SODIUM CHLORIDE 0.9% 50 ML IV SCH (22:23)
[2020-04-13] MEDS: HYDROcodone/APAP 5/325 TABLET PO PRN (22:24)
[2020-04-13 22:52] VITALS: BP 125/70
[2020-04-14] MEDS: SODIUM CHLORIDE 0.9% 1,000 ML IV SCH ×4 (00:29→22:09)
[2020-04-14 01:41] VITALS: BP 130/76
[2020-04-14] MEDS: AMPICILLIN/SULBACTAM 1,500 MG in SODIUM CHLORIDE 0.9% 50 ML IV SCH (05:05)
[2020-04-14 06:01] LABS: INTERNATIONAL NORMALIZED RATIO 1.7 (0.93-1.1); PROTHROMBIN TIME 18.1 Seconds (9.6-11.5)
[2020-04-14 06:05] LABS: ALANINE AMINOTRANSFERASE 19 U/L (12-78); ALBUMIN 1.3 g/dL (3.4-5.0); ANION GAP 7 mmol/L (5-15); CALCIUM 7.1 mg/dL (8.5-10.1); CHLORIDE 104 mmol/L (98-107); CREATININE 3.42 mg/dL (0.55-1.02)
[2020-04-14 06:07] LABS: ALKALINE PHOSPHATASE 88 U/L (45-117); BILIRUBIN,TOTAL 3.4 mg/dL (0.2-1.0); TOTAL PROTEIN 7.2 g/dL (6.4-8.2)
[2020-04-14 06:13] LABS: MEAN CORPUSCULAR HEMOGLOBIN 31.9 pg (27.0-34.8); MEAN CORPUSCULAR HGB CONC 33.6 g/dL (32.4-35.8); MEAN CORPUSCULAR VOLUME 94.8 fL (80-100); RED BLOOD COUNT 2.69 x10^6/uL (3.82-5.3)
[2020-04-14 06:24] LABS: CHLORIDE,URINE RANDOM 59 mmol/L; POTASSIUM,URINE RANDOM 43 mmol/L; SODIUM,URINE RANDOM 37 mmol/L
[2020-04-14 07:03] LABS: MD YES
[2020-04-14 07:08] LABS: BAND#(MANUAL) 0.55 x10^3/uL; BANDS%(MANUAL) 8 % (0-7); BASOS#(MANUAL) 0.07 x10^3/uL (0-0.1); BASOS% (MANUAL) 1 % (0-1); EOS#(MANUAL) 0.28 x10^3/uL (0.0-0.4); EOS% (MANUAL) 4 % (1-7); LYMPH#(MANUAL) 0.48 x10^3/uL (1-3.4); LYMPHS% (MANUAL) 7 % (22-44); MONOS#(MANUAL) 0.14 x10^3/uL (0.3-2.7); MONOS% (MANUAL) 2 % (2-9); SEG#(MANUAL) 5.38 x10^3/uL (1.8-6.8); SEGS% (MANUAL) 78 % (42-75)
[2020-04-14 07:10] LABS: ANISOCYTOSIS 1+
[2020-04-14 07:12] LABS: HYPOCHROMIA 1+; TARGET CELLS 1+
[2020-04-14 07:15] LABS: MEAN PLATELET VOLUME 9.4 fL (7.4-10.4)
[2020-04-14 07:17] LABS: PLATELET COUNT 27 x10^3/uL (130-400)
[2020-04-14 08:02] VITALS: BP 128/77
[2020-04-14] MEDS: POTASSIUM CHLORIDE 20 MEQ TAB.ER.PRT PO SCH ×2 (08:14→16:26)
[2020-04-14] MEDS: HYDROcodone/APAP 5/325 TABLET PO PRN ×2 (08:14→22:31)
[2020-04-14] MEDS: CALCIUM CARBONATE 500 MG TAB.CHEW PO SCH ×3 (08:14→20:06)
[2020-04-14 08:26] LABS: <PLATELET ESTIMATE> DECREASED; <PLT MORPHOLOGY> NORMAL PLT MORPH
[2020-04-14] MEDS ORDERED: GLUCAGON 1 MG IM PRN (09:00)
[2020-04-14] MEDS ORDERED: VANCOMYCIN PER PHARMACY MC PRN (09:00)
[2020-04-14] MEDS ORDERED: DEXTROSE 50%, 50ML SYRINGE IVPush PRN (09:00)
[2020-04-14] MEDS ORDERED: DEXTROSE 4 GM TAB.CHEW PO PRN (09:00)
[2020-04-14] MEDS: SODIUM CHLORIDE FLUSH 10ML SYR IVF SCH ×2 (10:18→20:06)
[2020-04-14] MEDS: DAPTOMYCIN 650 MG in SODIUM CHLORIDE 0.9% 100 ML IV SCH (10:19)
[2020-04-14 10:54] LABS: MICROSCOPIC INDICATED
[2020-04-14 12:40] VITALS: BP 134/70
[2020-04-14] MEDS: MUPIROCIN OINT 2%, 22GM TP SCH (16:27)
[2020-04-14 20:00] VITALS: BP 126/74
[2020-04-14 22:04] VITALS: BP 128/74
[2020-04-15] VITALS (7 sets, daily range): BP systolic 113–128; BP diastolic 64–81
[2020-04-15] MEDS: SODIUM CHLORIDE 0.9% 1,000 ML IV SCH ×3 (03:36→18:15)
[2020-04-15] MEDS: MUPIROCIN OINT 2%, 22GM TP SCH ×3 (05:47→18:00)
[2020-04-15] MEDS: CALCIUM CARBONATE 500 MG TAB.CHEW PO SCH ×3 (08:32→20:01)
[2020-04-15] MEDS: POTASSIUM CHLORIDE 20 MEQ TAB.ER.PRT PO SCH ×2 (08:32→15:42)
[2020-04-15] MEDS: SODIUM CHLORIDE FLUSH 10ML SYR IVF SCH ×2 (08:33→20:47)
[2020-04-15 11:18] LABS: HCT (SEDRATE) 24.1 % (34.6-47.8)
[2020-04-15 11:22] LABS: MEAN CORPUSCULAR HGB CONC 34.1 g/dL (32.4-35.8); MEAN CORPUSCULAR VOLUME 96.6 fL (80-100); RED BLOOD COUNT 2.51 x10^6/uL (3.82-5.3); RED CELL DISTRIBUTION WIDTH 22.4 % (9.6-15.2)
[2020-04-15 11:25] LABS: CHLORIDE 108 mmol/L (98-107)
[2020-04-15 11:38] LABS: ALANINE AMINOTRANSFERASE 20 U/L (12-78); ALBUMIN 1.3 g/dL (3.4-5.0); ALKALINE PHOSPHATASE 144 U/L (45-117); ANION GAP 5 mmol/L (5-15); BILIRUBIN,TOTAL 3.3 mg/dL (0.2-1.0); CREATINE KINASE, TOTAL 22 U/L (26-192); CREATININE 3.56 mg/dL (0.55-1.02); TOTAL PROTEIN 7.1 g/dL (6.4-8.2)
[2020-04-15 11:39] LABS: CREATININE CLEARANCE,URINE 12.6 (70.0-140.0)
[2020-04-15 11:51] LABS: MD YES; MEAN PLATELET VOLUME 10.2 fL (7.4-10.4)
[2020-04-15 11:52] LABS: <PLATELET ESTIMATE> DECREASED; BAND#(MANUAL) 0.48 x10^3/uL; BANDS%(MANUAL) 6 % (0-7); BASOS#(MANUAL) 0.08 x10^3/uL (0-0.1); BASOS% (MANUAL) 1 % (0-1); LARGE PLATELETS 1+; LYMPH#(MANUAL) 0.72 x10^3/uL (1-3.4); LYMPHS% (MANUAL) 9 % (22-44); MONOS% (MANUAL) 10 % (2-9); SEG#(MANUAL) 5.92 x10^3/uL (1.8-6.8); SEGS% (MANUAL) 74 % (42-75)
[2020-04-15 11:53] LABS: ANISOCYTOSIS 1+
[2020-04-15 12:03] LABS: PLATELET COUNT 16 x10^3/uL (130-400)
[2020-04-15 13:47] LABS: RED BLOOD COUNT 2.57 x10^6/uL (3.82-5.3)
[2020-04-15 13:53] LABS: CALCIUM 7.4 mg/dL (8.5-10.1)
[2020-04-15 14:06] LABS: ABSOLUTE RETICS # 0.063 x10^6/uL (0.5-2.5); RETICULOCYTE COUNT % 2.45 % (0.5-1.5)
[2020-04-15] MEDS ORDERED: SODIUM CHLORIDE 0.9% 1,000 ML IV SCH (16:26)
[2020-04-15 17:01] LABS: ANTISTREPTOLYSIN-O TITER 1600 IU/mL
[2020-04-15 18:03] LABS: CHLORIDE,URINE RANDOM 64 mmol/L; POTASSIUM,URINE RANDOM 34 mmol/L; SODIUM,URINE RANDOM 44 mmol/L
[2020-04-15 18:09] LABS: MICROSCOPIC INDICATED
[2020-04-15] MEDS: HYDROcodone/APAP 5/325 TABLET PO PRN (20:06)
[2020-04-16] VITALS (7 sets, daily range): BP systolic 106–144; BP diastolic 52–81
[2020-04-16] MEDS: SODIUM CHLORIDE 0.9% 1,000 ML IV SCH (01:42)
[2020-04-16 05:54] LABS: ALBUMIN 1.2 g/dL (3.4-5.0); ANION GAP 9 mmol/L (5-15); CALCIUM 7.3 mg/dL (8.5-10.1); CHLORIDE 108 mmol/L (98-107)
[2020-04-16 05:59] LABS: ALANINE AMINOTRANSFERASE 19 U/L (12-78); ALKALINE PHOSPHATASE 128 U/L (45-117); BILIRUBIN,TOTAL 3.6 mg/dL (0.2-1.0); CREATININE 3.54 mg/dL (0.55-1.02); TOTAL PROTEIN 6.7 g/dL (6.4-8.2)
[2020-04-16] MEDS: MUPIROCIN OINT 2%, 22GM TP SCH ×2 (06:17→17:40)
[2020-04-16] MEDS ORDERED: FENTANYL PF 100 MCG/2ML IV PRN (08:00)
[2020-04-16] MEDS ORDERED: hydrALAzine 20 MG/ML, 1ML IV PRN (08:00)
[2020-04-16] MEDS: POTASSIUM CHLORIDE 20 MEQ TAB.ER.PRT PO SCH (08:00)
[2020-04-16] MEDS ORDERED: MEPERIDINE/PF 25MG/0.5ML IVPush PRN (08:00)
[2020-04-16] MEDS ORDERED: OXYcodone 5 MG/5 ML ORAL.SOL UDC PO PRN (08:00)
[2020-04-16] MEDS ORDERED: ACETAMINOPHEN 325 MG TABLET PO PRN (08:00)
[2020-04-16] MEDS ORDERED: EPHEDRINE 50 MG/ML, 1ML IVPush PRN (08:00)
[2020-04-16] MEDS ORDERED: PROMETHAZINE 25 MG/ML, 1ML IVPush PRN (08:00)
[2020-04-16] MEDS ORDERED: LABETALOL 5MG/ML, 20ML IV PRN (08:00)
[2020-04-16] MEDS ORDERED: ONDANSETRON 2MG/ML, 2ML IVPush PRN (08:00)
[2020-04-16 08:03] LABS: MEAN CORPUSCULAR HGB CONC 33.2 g/dL (32.4-35.8); MEAN CORPUSCULAR VOLUME 96.3 fL (80-100); MEAN PLATELET VOLUME 8.3 fL (7.4-10.4); PLATELET COUNT 22 x10^3/uL (130-400); RED BLOOD COUNT 2.38 x10^6/uL (3.82-5.3); RED CELL DISTRIBUTION WIDTH 22.1 % (9.6-15.2)
[2020-04-16 08:04] LABS: MD YES
[2020-04-16 08:06] LABS: BASOS#(MANUAL) 0.13 x10^3/uL (0-0.1); BASOS% (MANUAL) 2 % (0-1); EOS#(MANUAL) 0.26 x10^3/uL (0.0-0.4); EOS% (MANUAL) 4 % (1-7); LYMPH#(MANUAL) 1.34 x10^3/uL (1-3.4); LYMPHS% (MANUAL) 21 % (22-44); METAMYELOCYTES# (MANUAL) 0.06 x10^3/uL (0-0); METAMYELOCYTES% (MANUAL) 1 % (0-1); MONOS#(MANUAL) 0.96 x10^3/uL (0.3-2.7); MONOS% (MANUAL) 15 % (2-9); SEG#(MANUAL) 3.65 x10^3/uL (1.8-6.8); SEGS% (MANUAL) 57 % (42-75)
[2020-04-16 08:07] LABS: <PLATELET ESTIMATE> DECREASED; <PLT MORPHOLOGY> NORMAL PLT MORPH; ANISOCYTOSIS 1+
[2020-04-16] MEDS: POTASSIUM PHOSPHATE 44 MEQ in SODIUM CHLORIDE 0.9% 500 ML IV ONE ×2 (08:30→12:44)
[2020-04-16] MEDS ORDERED: MAGNESIUM SULFATE PMX 4GM/100M 100 ML IV ONE (08:30)
[2020-04-16] MEDS ORDERED: CHLORHEXIDINE 15 ML UDC ONE (08:47)
[2020-04-16] MEDS: SODIUM CHLORIDE FLUSH 10ML SYR IVF SCH ×2 (09:00→20:49)
[2020-04-16] MEDS ORDERED: FENTANYL PF 100 MCG/2ML ONE ×4 (09:05→09:49)
[2020-04-16] MEDS ORDERED: MIDAZOLAM 1 MG/ML, 2ML ONE (09:05)
[2020-04-16] MEDS ORDERED: PROPOFOL 10 MG/ML, 20ML ONE (09:28)
[2020-04-16] MEDS ORDERED: SUCCINYLCHOLINE 20 MG/ML, 10ML ONE (09:28)
[2020-04-16] MEDS ORDERED: DEXAMETHASONE 4 MG/ML, 1ML ONE ×2 (09:28)
[2020-04-16] MEDS ORDERED: ONDANSETRON 2MG/ML, 2ML ONE (09:28)
[2020-04-16] MEDS ORDERED: PHENYLEPHRINE 10 MG/ML ONE (09:42)
[2020-04-16] MEDS ORDERED: OXYcodone 5 MG/5 ML ORAL.SOL UDC ONE (10:16)
[2020-04-16] MEDS ORDERED: HYDROmorphone 1 MG/ML, 1ML INJ ONE (10:16)
[2020-04-16] MEDS: HYDROmorphone 1 MG/ML, 1ML INJ IVPush PRN ×3 (10:20→10:50)
[2020-04-16] MEDS ORDERED: DIAZEPAM 5 MG/ML, 2ML ONE (10:45)
[2020-04-16] MEDS ORDERED: DIAZEPAM 5 MG/ML, 10ML VIAL IV ONE (11:00)
[2020-04-16] MEDS: DAPTOMYCIN 650 MG in SODIUM CHLORIDE 0.9% 100 ML IV SCH (12:43)
[2020-04-16] MEDS: ERGOCALCIFEROL 50,000 UNIT CAPSULE PO SCH (12:44)
[2020-04-16] MEDS: CALCIUM CARBONATE 500 MG TAB.CHEW PO SCH ×3 (12:44→20:44)
[2020-04-16] MEDS ORDERED: OXYcodone/APAP 5/325MG TABLET PO PRN (13:00)
[2020-04-16 13:47] LABS: MEAN CORPUSCULAR HEMOGLOBIN 32.4 pg (27.0-34.8); MEAN CORPUSCULAR HGB CONC 33.7 g/dL (32.4-35.8); MEAN CORPUSCULAR VOLUME 96.3 fL (80-100); MEAN PLATELET VOLUME 8.3 fL (7.4-10.4); PLATELET COUNT 60 x10^3/uL (130-400); RED CELL DISTRIBUTION WIDTH 22.2 % (9.6-15.2)
[2020-04-16 14:00] LABS: BASOPHILS # (AUTO) 0.01 x10^3/uL (0-0.1); BASOPHILS % (AUTO) 0 % (0-1); EOSINOPHILS # (AUTO) 0.01 x10^3/uL (0-0.4); EOSINOPHILS % (AUTO) 0 % (1-7); LYMPHOCYTES # (AUTO) 0.79 x10^3/uL (1-3.4); LYMPHOCYTES % (AUTO) 9 % (22-44); MD SCAN; MONOCYTES # (AUTO) 0.07 x10^3/uL (0.2-0.8); MONOCYTES % (AUTO) 1 % (2-9); NEUTROPHILS # (AUTO) 7.97 x10^3/uL (1.8-6.8); NEUTROPHILS % (AUTO) 90 % (42-75)
[2020-04-16] MEDS: HYDROcodone/APAP 5/325 TABLET PO PRN (18:05)
[2020-04-16 20:06] LABS: MEAN CORPUSCULAR HEMOGLOBIN 32.9 pg (27.0-34.8); MEAN CORPUSCULAR HGB CONC 33.6 g/dL (32.4-35.8); MEAN CORPUSCULAR VOLUME 97.8 fL (80-100); MEAN PLATELET VOLUME 8.7 fL (7.4-10.4); RED BLOOD COUNT 2.13 x10^6/uL (3.82-5.3); RED CELL DISTRIBUTION WIDTH 22.5 % (9.6-15.2)
[2020-04-16 20:07] LABS: PLATELET COUNT 45 x10^3/uL (130-400)
[2020-04-16 20:12] LABS: BASOPHILS # (AUTO) 0.01 x10^3/uL (0-0.1); BASOPHILS % (AUTO) 0 % (0-1); EOSINOPHILS % (AUTO) 0 % (1-7); LYMPHOCYTES # (AUTO) 0.96 x10^3/uL (1-3.4); LYMPHOCYTES % (AUTO) 16 % (22-44); MD SCAN; MONOCYTES # (AUTO) 0.03 x10^3/uL (0.2-0.8); MONOCYTES % (AUTO) 1 % (2-9); NEUTROPHILS # (AUTO) 5.13 x10^3/uL (1.8-6.8); NEUTROPHILS % (AUTO) 84 % (42-75)
[2020-04-17] VITALS (7 sets, daily range): BP systolic 112–144; BP diastolic 63–79
[2020-04-17 01:51] LABS: MEAN CORPUSCULAR HEMOGLOBIN 32.6 pg (27.0-34.8); MEAN CORPUSCULAR HGB CONC 33.2 g/dL (32.4-35.8); MEAN CORPUSCULAR VOLUME 98.2 fL (80-100); RED BLOOD COUNT 2.08 x10^6/uL (3.82-5.3); RED CELL DISTRIBUTION WIDTH 22.2 % (9.6-15.2)
[2020-04-17 01:55] LABS: PLATELET COUNT 40 x10^3/uL (130-400)
[2020-04-17 02:10] LABS: MD YES
[2020-04-17 02:13] LABS: BAND#(MANUAL) 0.14 x10^3/uL; BANDS%(MANUAL) 2 % (0-7); LYMPH#(MANUAL) 0.75 x10^3/uL (1-3.4); LYMPHS% (MANUAL) 11 % (22-44); METAMYELOCYTES# (MANUAL) 0.07 x10^3/uL (0-0); METAMYELOCYTES% (MANUAL) 1 % (0-1); MONOS#(MANUAL) 0.27 x10^3/uL (0.3-2.7); MONOS% (MANUAL) 4 % (2-9); MYELOCYTES# (MANUAL) 0.14 x10^3/uL (0-0); MYELOCYTES% (MANUAL) 2 % (0-0); SEG#(MANUAL) 5.44 x10^3/uL (1.8-6.8); SEGS% (MANUAL) 80 % (42-75)
[2020-04-17 02:14] LABS: ANISOCYTOSIS 1+
[2020-04-17 02:15] LABS: <PLATELET ESTIMATE> DECREASED; LARGE PLATELETS 1+; POLYCHROMASIA 1+; TOXIC GRAN 1+
[2020-04-17] MEDS: MUPIROCIN OINT 2%, 22GM TP SCH ×2 (04:44→17:35)
[2020-04-17 07:04] LABS: ALANINE AMINOTRANSFERASE 20 U/L (12-78); ALBUMIN 1.4 g/dL (3.4-5.0); ANION GAP 8 mmol/L (5-15); BILIRUBIN, DIRECT 2.4 mg/dL (0.1-0.2); CALCIUM 7.8 mg/dL (8.5-10.1); CHLORIDE 107 mmol/L (98-107); CREATININE 4.34 mg/dL (0.55-1.02); MEAN CORPUSCULAR HEMOGLOBIN 32.5 pg (27.0-34.8); MEAN CORPUSCULAR HGB CONC 33.4 g/dL (32.4-35.8); MEAN CORPUSCULAR VOLUME 97.3 fL (80-100); MEAN PLATELET VOLUME 8.9 fL (7.4-10.4); RED BLOOD COUNT 2.16 x10^6/uL (3.82-5.3)
[2020-04-17 07:06] LABS: PLATELET COUNT 43 x10^3/uL (130-400); RED CELL DISTRIBUTION WIDTH 20.7 % (9.6-15.2)
[2020-04-17 07:07] LABS: ALKALINE PHOSPHATASE 127 U/L (45-117); BILIRUBIN,INDIRECT 0.9 mg/dL (0.0-2.0); BILIRUBIN,TOTAL 3.3 mg/dL (0.2-1.0); TOTAL PROTEIN 6.7 g/dL (6.4-8.2)
[2020-04-17 07:48] LABS: MD YES
[2020-04-17 07:49] LABS: <PLATELET ESTIMATE> DECREASED; <PLT MORPHOLOGY> NORMAL PLT MORPH; ANISOCYTOSIS 1+; LYMPH#(MANUAL) 1.39 x10^3/uL (1-3.4); LYMPHS% (MANUAL) 17 % (22-44); MONOS#(MANUAL) 0.66 x10^3/uL (0.3-2.7); MONOS% (MANUAL) 8 % (2-9); POLYCHROMASIA 1+; SEG#(MANUAL) 6.15 x10^3/uL (1.8-6.8); SEGS% (MANUAL) 75 % (42-75)
[2020-04-17 07:50] LABS: TOXIC GRAN 1+
[2020-04-17] MEDS: CALCIUM CARBONATE 500 MG TAB.CHEW PO SCH ×3 (09:25→20:51)
[2020-04-17] MEDS: SODIUM CHLORIDE FLUSH 10ML SYR IVF SCH ×2 (09:27→20:51)
[2020-04-17 19:44] LABS: MD YES; MEAN CORPUSCULAR HEMOGLOBIN 32.6 pg (27.0-34.8); MEAN CORPUSCULAR HGB CONC 33.9 g/dL (32.4-35.8); MEAN PLATELET VOLUME 8.7 fL (7.4-10.4); PLATELET COUNT 67 x10^3/uL (130-400); RED BLOOD COUNT 2.15 x10^6/uL (3.82-5.3)
[2020-04-17 19:46] LABS: RED CELL DISTRIBUTION WIDTH 20.5 % (9.6-15.2)
[2020-04-17 19:50] LABS: ANISOCYTOSIS 1+; BAND#(MANUAL) 0.22 x10^3/uL; BANDS%(MANUAL) 2 % (0-7); LYMPH#(MANUAL) 1.33 x10^3/uL (1-3.4); LYMPHS% (MANUAL) 12 % (22-44); MONOS#(MANUAL) 0.33 x10^3/uL (0.3-2.7); MONOS% (MANUAL) 3 % (2-9); MYELOCYTES# (MANUAL) 0.11 x10^3/uL (0-0); MYELOCYTES% (MANUAL) 1 % (0-0); NRBC % (MANUAL) 1 % (0-1); SEGS% (MANUAL) 82 % (42-75)
[2020-04-17 19:51] LABS: <PLATELET ESTIMATE> DECREASED; <PLT MORPHOLOGY> NORMAL PLT MORPH; POLYCHROMASIA 1+; TOXIC GRAN 1+
[2020-04-17] MEDS: HYDROcodone/APAP 5/325 TABLET PO PRN (20:55)
[2020-04-18] VITALS (11 sets, daily range): BP systolic 119–213; BP diastolic 74–136
[2020-04-18 01:04] LABS: MEAN CORPUSCULAR HEMOGLOBIN 32.6 pg (27.0-34.8); MEAN CORPUSCULAR HGB CONC 34.2 g/dL (32.4-35.8); MEAN CORPUSCULAR VOLUME 95.4 fL (80-100); MEAN PLATELET VOLUME 8.7 fL (7.4-10.4); PLATELET COUNT 70 x10^3/uL (130-400); RED BLOOD COUNT 2.25 x10^6/uL (3.82-5.3); RED CELL DISTRIBUTION WIDTH 21.3 % (9.6-15.2)
[2020-04-18 01:17] LABS: MD YES
[2020-04-18 01:20] LABS: <PLATELET ESTIMATE> DECREASED; <PLT MORPHOLOGY> NORMAL PLT MORPH; ANISOCYTOSIS 1+; BAND#(MANUAL) 0.19 x10^3/uL; BANDS%(MANUAL) 2 % (0-7); LYMPH#(MANUAL) 0.96 x10^3/uL (1-3.4); LYMPHS% (MANUAL) 10 % (22-44); MONOS#(MANUAL) 0.86 x10^3/uL (0.3-2.7); MONOS% (MANUAL) 9 % (2-9); POLYCHROMASIA 1+; SEG#(MANUAL) 7.58 x10^3/uL (1.8-6.8); SEGS% (MANUAL) 79 % (42-75); TOXIC GRAN 1+
[2020-04-18 05:48] LABS: ALANINE AMINOTRANSFERASE 23 U/L (12-78); ALBUMIN 1.4 g/dL (3.4-5.0); ANION GAP 8 mmol/L (5-15); CALCIUM 7.9 mg/dL (8.5-10.1); CHLORIDE 105 mmol/L (98-107); CREATININE 4.44 mg/dL (0.55-1.02)
[2020-04-18 05:54] LABS: MEAN CORPUSCULAR HEMOGLOBIN 32.7 pg (27.0-34.8); MEAN CORPUSCULAR HGB CONC 33.7 g/dL (32.4-35.8); MEAN CORPUSCULAR VOLUME 97.2 fL (80-100); MEAN PLATELET VOLUME 8.8 fL (7.4-10.4); PLATELET COUNT 76 x10^3/uL (130-400); RED BLOOD COUNT 2.03 x10^6/uL (3.82-5.3); RED CELL DISTRIBUTION WIDTH 21.5 % (9.6-15.2)
[2020-04-18 05:55] LABS: ALKALINE PHOSPHATASE 162 U/L (45-117); BILIRUBIN,TOTAL 2.3 mg/dL (0.2-1.0); CREATINE KINASE, TOTAL 22 U/L (26-192); TOTAL PROTEIN 6.8 g/dL (6.4-8.2)
[2020-04-18 06:00] LABS: HCT (SEDRATE) 19.8 % (34.6-47.8)
[2020-04-18] MEDS: MUPIROCIN OINT 2%, 22GM TP SCH ×2 (06:00→16:15)
[2020-04-18 06:20] LABS: SEDIMENTATION RATE > 120 mm/hr (0-20)
[2020-04-18 06:29] LABS: BASOPHILS # (AUTO) 0.01 x10^3/uL (0-0.1); BASOPHILS % (AUTO) 0 % (0-1); EOSINOPHILS % (AUTO) 0 % (1-7); LYMPHOCYTES # (AUTO) 0.97 x10^3/uL (1-3.4); LYMPHOCYTES % (AUTO) 10 % (22-44); MD SCAN; MONOCYTES % (AUTO) 4 % (2-9); NEUTROPHILS # (AUTO) 8.57 x10^3/uL (1.8-6.8); NEUTROPHILS % (AUTO) 86 % (42-75)
[2020-04-18] MEDS: CALCIUM CARBONATE 500 MG TAB.CHEW PO SCH ×3 (09:48→20:27)
[2020-04-18] MEDS: SODIUM CHLORIDE FLUSH 10ML SYR IVF SCH ×2 (09:50→20:28)
[2020-04-18] MEDS: DAPTOMYCIN 650 MG in SODIUM CHLORIDE 0.9% 100 ML IV SCH (11:07)
[2020-04-18] MEDS: HYDROcodone/APAP 5/325 TABLET PO PRN (11:14)
[2020-04-18 19:48] LABS: BASOPHILS # (AUTO) 0.01 x10^3/uL (0-0.1); BASOPHILS % (AUTO) 0 % (0-1); EOSINOPHILS # (AUTO) 0.01 x10^3/uL (0-0.4); EOSINOPHILS % (AUTO) 0 % (1-7); LYMPHOCYTES # (AUTO) 1.48 x10^3/uL (1-3.4); LYMPHOCYTES % (AUTO) 9 % (22-44); MEAN CORPUSCULAR HEMOGLOBIN 32.7 pg (27.0-34.8); MEAN CORPUSCULAR HGB CONC 33.7 g/dL (32.4-35.8); MEAN CORPUSCULAR VOLUME 97.2 fL (80-100); MEAN PLATELET VOLUME 9.1 fL (7.4-10.4); MONOCYTES # (AUTO) 0.72 x10^3/uL (0.2-0.8); MONOCYTES % (AUTO) 5 % (2-9); NEUTROPHILS # (AUTO) 13.53 x10^3/uL (1.8-6.8); NEUTROPHILS % (AUTO) 86 % (42-75); PLATELET COUNT 148 x10^3/uL (130-400); RED BLOOD COUNT 2.61 x10^6/uL (3.82-5.3); RED CELL DISTRIBUTION WIDTH 19.5 % (9.6-15.2)
[2020-04-18 19:49] LABS: MD NO
[2020-04-19 01:12] VITALS: BP 132/84
[2020-04-19 05:54] LABS: ALBUMIN 1.3 g/dL (3.4-5.0); ANION GAP 8 mmol/L (5-15); CALCIUM 7.8 mg/dL (8.5-10.1); CHLORIDE 108 mmol/L (98-107)
[2020-04-19 05:56] LABS: MEAN CORPUSCULAR HEMOGLOBIN 32.9 pg (27.0-34.8); MEAN CORPUSCULAR VOLUME 96.8 fL (80-100); RED BLOOD COUNT 2.36 x10^6/uL (3.82-5.3); RED CELL DISTRIBUTION WIDTH 19.8 % (9.6-15.2)
[2020-04-19 05:57] LABS: ALANINE AMINOTRANSFERASE 33 U/L (12-78); ALKALINE PHOSPHATASE 158 U/L (45-117); BILIRUBIN,TOTAL 2.7 mg/dL (0.2-1.0); CREATININE 3.88 mg/dL (0.55-1.02); TOTAL PROTEIN 6.6 g/dL (6.4-8.2)
[2020-04-19] MEDS: HYDROcodone/APAP 5/325 TABLET PO PRN ×3 (05:58→17:49)
[2020-04-19] MEDS: MUPIROCIN OINT 2%, 22GM TP SCH ×2 (05:59→17:15)
[2020-04-19 06:24] LABS: BASOPHILS # (AUTO) 0.01 x10^3/uL (0-0.1); BASOPHILS % (AUTO) 0 % (0-1); EOSINOPHILS # (AUTO) 0.02 x10^3/uL (0-0.4); EOSINOPHILS % (AUTO) 0 % (1-7); LYMPHOCYTES % (AUTO) 10 % (22-44); MD SCAN; MEAN PLATELET VOLUME 8.5 fL (7.4-10.4); MONOCYTES # (AUTO) 0.08 x10^3/uL (0.2-0.8); MONOCYTES % (AUTO) 1 % (2-9); NEUTROPHILS # (AUTO) 10.27 x10^3/uL (1.8-6.8); NEUTROPHILS % (AUTO) 89 % (42-75); PLATELET COUNT 114 x10^3/uL (130-400)
[2020-04-19 06:32] VITALS: BP 114/73
[2020-04-19] MEDS ORDERED: SODIUM POLYSTYRENE SULFONATE ORAL SUSP PO ONE (08:30)
[2020-04-19] MEDS: CALCIUM CARBONATE 500 MG TAB.CHEW PO SCH ×3 (09:47→20:15)
[2020-04-19] MEDS: SODIUM CHLORIDE FLUSH 10ML SYR IVF SCH ×2 (09:53→20:16)
[2020-04-19] MEDS: SODIUM BICARBONATE 650 MG TABLET PO SCH ×2 (11:43→20:15)
[2020-04-19 12:16] LABS: ANTI-NUCLEAR ANTIBODY PATTERN CYTOPLASMIC
[2020-04-19 14:00] VITALS: BP 139/82
[2020-04-19 14:42] LABS: ANION GAP 8 mmol/L (5-15); CALCIUM 7.9 mg/dL (8.5-10.1); CHLORIDE 108 mmol/L (98-107); CREATININE 3.66 mg/dL (0.55-1.02)
[2020-04-19 19:12] VITALS: BP 112/66
[2020-04-20 03:10] VITALS: BP 114/68
[2020-04-20] MEDS: HYDROcodone/APAP 5/325 TABLET PO PRN ×2 (04:46→21:23)
[2020-04-20] MEDS: MUPIROCIN OINT 2%, 22GM TP SCH ×2 (05:50→16:23)
[2020-04-20 07:27] VITALS: BP 119/70
[2020-04-20] MEDS: SODIUM BICARBONATE 650 MG TABLET PO SCH ×2 (08:13→21:23)
[2020-04-20] MEDS: CALCIUM CARBONATE 500 MG TAB.CHEW PO SCH ×3 (08:13→21:20)
[2020-04-20] MEDS: SODIUM CHLORIDE FLUSH 10ML SYR IVF SCH ×2 (08:14→21:24)
[2020-04-20 10:22] LABS: MEAN CORPUSCULAR HEMOGLOBIN 32.4 pg (27.0-34.8); MEAN CORPUSCULAR HGB CONC 32.9 g/dL (32.4-35.8); MEAN CORPUSCULAR VOLUME 98.5 fL (80-100); MEAN PLATELET VOLUME 7.6 fL (7.4-10.4); PLATELET COUNT 196 x10^3/uL (130-400); RED BLOOD COUNT 2.42 x10^6/uL (3.82-5.3); RED CELL DISTRIBUTION WIDTH 20.2 % (9.6-15.2)
[2020-04-20 10:32] LABS: ALANINE AMINOTRANSFERASE 75 U/L (12-78); ALBUMIN 1.5 g/dL (3.4-5.0); ANION GAP 9 mmol/L (5-15); CALCIUM 7.6 mg/dL (8.5-10.1); CHLORIDE 109 mmol/L (98-107); CREATININE 2.72 mg/dL (0.55-1.02)
[2020-04-20 10:34] LABS: ALKALINE PHOSPHATASE 204 U/L (45-117); TOTAL PROTEIN 7.2 g/dL (6.4-8.2)
[2020-04-20] MEDS: DAPTOMYCIN 650 MG in SODIUM CHLORIDE 0.9% 100 ML IV SCH (11:04)
[2020-04-20 11:18] LABS: BASOPHILS # (AUTO) 0.11 x10^3/uL (0-0.1); BASOPHILS % (AUTO) 1 % (0-1); EOSINOPHILS # (AUTO) 0.03 x10^3/uL (0-0.4); EOSINOPHILS % (AUTO) 0 % (1-7); LYMPHOCYTES # (AUTO) 1.07 x10^3/uL (1-3.4); LYMPHOCYTES % (AUTO) 7 % (22-44); MD SCAN; MONOCYTES # (AUTO) 0.94 x10^3/uL (0.2-0.8); MONOCYTES % (AUTO) 6 % (2-9); NEUTROPHILS # (AUTO) 13.21 x10^3/uL (1.8-6.8); NEUTROPHILS % (AUTO) 86 % (42-75)
[2020-04-20 12:43] VITALS: BP 134/84
[2020-04-20 18:46] VITALS: BP 118/68
[2020-04-21 03:55] VITALS: BP 119/76
[2020-04-21] MEDS: MUPIROCIN OINT 2%, 22GM TP SCH ×3 (05:31→20:32)
[2020-04-21] MEDS: HYDROcodone/APAP 5/325 TABLET PO PRN ×2 (05:38→18:33)
[2020-04-21 06:31] LABS: ALBUMIN 1.4 g/dL (3.4-5.0); ANION GAP 7 mmol/L (5-15); CALCIUM 7.4 mg/dL (8.5-10.1); CHLORIDE 109 mmol/L (98-107)
[2020-04-21 06:34] LABS: ALANINE AMINOTRANSFERASE 69 U/L (12-78); ALKALINE PHOSPHATASE 200 U/L (45-117); BILIRUBIN,TOTAL 2.6 mg/dL (0.2-1.0); CREATININE 2.07 mg/dL (0.55-1.02); TOTAL PROTEIN 6.5 g/dL (6.4-8.2)
[2020-04-21 06:36] LABS: MEAN CORPUSCULAR HEMOGLOBIN 32.6 pg (27.0-34.8); MEAN CORPUSCULAR HGB CONC 32.9 g/dL (32.4-35.8); MEAN CORPUSCULAR VOLUME 98.9 fL (80-100); MEAN PLATELET VOLUME 7.9 fL (7.4-10.4); PLATELET COUNT 180 x10^3/uL (130-400); RED CELL DISTRIBUTION WIDTH 20.5 % (9.6-15.2)
[2020-04-21 06:44] LABS: BASOPHILS # (AUTO) 0.01 x10^3/uL (0-0.1); BASOPHILS % (AUTO) 0 % (0-1); EOSINOPHILS # (AUTO) 0.14 x10^3/uL (0-0.4); EOSINOPHILS % (AUTO) 1 % (1-7); LYMPHOCYTES # (AUTO) 1.02 x10^3/uL (1-3.4); LYMPHOCYTES % (AUTO) 9 % (22-44); MD SCAN; MONOCYTES # (AUTO) 0.68 x10^3/uL (0.2-0.8); MONOCYTES % (AUTO) 6 % (2-9); NEUTROPHILS % (AUTO) 85 % (42-75)
[2020-04-21 07:00] VITALS: BP 112/70
[2020-04-21] MEDS ORDERED: MAGNESIUM SULFATE PMX 2GM/50ML 50 ML IV ONE (08:00)
[2020-04-21] MEDS: SODIUM BICARBONATE 650 MG TABLET PO SCH ×2 (08:27→20:31)
[2020-04-21] MEDS: CALCIUM CARBONATE 500 MG TAB.CHEW PO SCH ×3 (08:27→20:31)
[2020-04-21] MEDS: SODIUM CHLORIDE FLUSH 10ML SYR IVF SCH ×2 (08:27→20:32)
[2020-04-21 13:50] VITALS: BP 133/76
[2020-04-21 19:26] VITALS: BP 129/77
[2020-04-22] VITALS (8 sets, daily range): BP systolic 102–144; BP diastolic 56–85
[2020-04-22] MEDS: HYDROcodone/APAP 5/325 TABLET PO PRN ×4 (02:46→23:20)
[2020-04-22 03:59] LABS: ALANINE AMINOTRANSFERASE 60 U/L (12-78); ALBUMIN 1.3 g/dL (3.4-5.0); ANION GAP 6 mmol/L (5-15); CALCIUM 7.4 mg/dL (8.5-10.1); CHLORIDE 110 mmol/L (98-107); CREATININE 1.65 mg/dL (0.55-1.02); MEAN CORPUSCULAR HEMOGLOBIN 32.8 pg (27.0-34.8); MEAN CORPUSCULAR HGB CONC 33.3 g/dL (32.4-35.8); MEAN CORPUSCULAR VOLUME 98.7 fL (80-100); MEAN PLATELET VOLUME 7.7 fL (7.4-10.4); PLATELET COUNT 184 x10^3/uL (130-400); RED BLOOD COUNT 1.95 x10^6/uL (3.82-5.3); RED CELL DISTRIBUTION WIDTH 21.4 % (9.6-15.2)
[2020-04-22 04:01] LABS: ALKALINE PHOSPHATASE 190 U/L (45-117); BILIRUBIN,TOTAL 2.2 mg/dL (0.2-1.0); TOTAL PROTEIN 6.1 g/dL (6.4-8.2)
[2020-04-22 04:22] LABS: BASOPHILS # (AUTO) 0.07 x10^3/uL (0-0.1); BASOPHILS % (AUTO) 1 % (0-1); EOSINOPHILS # (AUTO) 0.25 x10^3/uL (0-0.4); EOSINOPHILS % (AUTO) 3 % (1-7); LYMPHOCYTES # (AUTO) 1.23 x10^3/uL (1-3.4); LYMPHOCYTES % (AUTO) 12 % (22-44); MD SCAN; MONOCYTES # (AUTO) 0.66 x10^3/uL (0.2-0.8); MONOCYTES % (AUTO) 7 % (2-9); NEUTROPHILS # (AUTO) 7.83 x10^3/uL (1.8-6.8); NEUTROPHILS % (AUTO) 78 % (42-75)
[2020-04-22] MEDS: SODIUM BICARBONATE 650 MG TABLET PO SCH ×2 (07:51→20:25)
[2020-04-22] MEDS: CALCIUM CARBONATE 500 MG TAB.CHEW PO SCH ×3 (07:51→20:25)
[2020-04-22] MEDS: SODIUM CHLORIDE FLUSH 10ML SYR IVF SCH ×2 (07:52→22:53)
[2020-04-22] MEDS: DAPTOMYCIN 650 MG in SODIUM CHLORIDE 0.9% 100 ML IV SCH (13:19)
[2020-04-22] MEDS: MUPIROCIN OINT 2%, 22GM TP SCH (18:00)
[2020-04-23] VITALS (8 sets, daily range): BP systolic 119–137; BP diastolic 69–84
[2020-04-23] MEDS: MUPIROCIN OINT 2%, 22GM TP SCH ×2 (04:36→17:26)
[2020-04-23] MEDS: HYDROcodone/APAP 5/325 TABLET PO PRN ×2 (05:29→19:52)
[2020-04-23 05:46] LABS: CHLORIDE 110 mmol/L (98-107)
[2020-04-23 05:53] LABS: ALANINE AMINOTRANSFERASE 58 U/L (12-78); ALBUMIN 1.4 g/dL (3.4-5.0); ALKALINE PHOSPHATASE 196 U/L (45-117); ANION GAP 5 mmol/L (5-15); BILIRUBIN,TOTAL 2.5 mg/dL (0.2-1.0); CALCIUM 7.8 mg/dL (8.5-10.1); CREATININE 1.36 mg/dL (0.55-1.02); TOTAL PROTEIN 6.4 g/dL (6.4-8.2)
[2020-04-23 05:59] LABS: MEAN CORPUSCULAR HEMOGLOBIN 32.6 pg (27.0-34.8); MEAN CORPUSCULAR HGB CONC 33.1 g/dL (32.4-35.8); MEAN CORPUSCULAR VOLUME 98.7 fL (80-100); MEAN PLATELET VOLUME 7.9 fL (7.4-10.4); PLATELET COUNT 209 x10^3/uL (130-400); RED BLOOD COUNT 2.15 x10^6/uL (3.82-5.3); RED CELL DISTRIBUTION WIDTH 22.3 % (9.6-15.2)
[2020-04-23 06:58] LABS: ANISOCYTOSIS 1+; BASOPHILS # (AUTO) 0.02 x10^3/uL (0-0.1); BASOPHILS % (AUTO) 0 % (0-1); EOSINOPHILS # (AUTO) 0.23 x10^3/uL (0-0.4); EOSINOPHILS % (AUTO) 3 % (1-7); LYMPHOCYTES % (AUTO) 10 % (22-44); MD MORPH REVIEW ONLY; MONOCYTES # (AUTO) 0.79 x10^3/uL (0.2-0.8); MONOCYTES % (AUTO) 9 % (2-9); NEUTROPHILS # (AUTO) 7.17 x10^3/uL (1.8-6.8); NEUTROPHILS % (AUTO) 79 % (42-75); POLYCHROMASIA 1+
[2020-04-23 07:00] LABS: <PLATELET ESTIMATE> ADEQUATE; <PLT MORPHOLOGY> NORMAL PLT MORPH
[2020-04-23 07:02] LABS: MICROCYTOSIS 1+
[2020-04-23 08:55] LABS: ABSOLUTE RETICS # 0.111 x10^6/uL (0.5-2.5); RETICULOCYTE COUNT % 5.07 % (0.5-1.5)
[2020-04-23 09:09] LABS: RED BLOOD COUNT 2.15 x10^6/uL (3.82-5.3)
[2020-04-23] MEDS: SODIUM BICARBONATE 650 MG TABLET PO SCH ×2 (09:21→20:51)
[2020-04-23] MEDS: CALCIUM CARBONATE 500 MG TAB.CHEW PO SCH ×2 (09:21→15:33)
[2020-04-23] MEDS: SODIUM CHLORIDE FLUSH 10ML SYR IVF SCH ×2 (09:22→20:51)
[2020-04-23] MEDS: MAGNESIUM OXIDE 400 MG TABLET PO SCH (09:22)
[2020-04-23] MEDS: ERGOCALCIFEROL 50,000 UNIT CAPSULE PO SCH (09:22)
[2020-04-23] MEDS: DAPTOMYCIN 650 MG in SODIUM CHLORIDE 0.9% 100 ML IV SCH (14:52)
[2020-04-24 01:30] VITALS: BP 128/69
[2020-04-24] MEDS: MUPIROCIN OINT 2%, 22GM TP SCH ×2 (03:37→17:51)
[2020-04-24] MEDS: HYDROcodone/APAP 5/325 TABLET PO PRN ×3 (04:29→21:13)
[2020-04-24 05:45] LABS: ALBUMIN 1.3 g/dL (3.4-5.0); ANION GAP 5 mmol/L (5-15); CALCIUM 7.6 mg/dL (8.5-10.1); CHLORIDE 111 mmol/L (98-107); INTERNATIONAL NORMALIZED RATIO 1.63 (0.93-1.1); MEAN CORPUSCULAR HEMOGLOBIN 32.4 pg (27.0-34.8); MEAN CORPUSCULAR HGB CONC 32.9 g/dL (32.4-35.8); MEAN CORPUSCULAR VOLUME 98.7 fL (80-100); MEAN PLATELET VOLUME 7.4 fL (7.4-10.4); PLATELET COUNT 213 x10^3/uL (130-400); PROTHROMBIN TIME 17.4 Seconds (9.6-11.5); RED BLOOD COUNT 2.41 x10^6/uL (3.82-5.3); RED CELL DISTRIBUTION WIDTH 21.8 % (9.6-15.2)
[2020-04-24 05:48] LABS: ALANINE AMINOTRANSFERASE 52 U/L (12-78); ALKALINE PHOSPHATASE 157 U/L (45-117); CREATININE 1.19 mg/dL (0.55-1.02); TOTAL PROTEIN 6.3 g/dL (6.4-8.2)
[2020-04-24 06:08] LABS: BASOPHILS # (AUTO) 0.09 x10^3/uL (0-0.1); BASOPHILS % (AUTO) 1 % (0-1); EOSINOPHILS # (AUTO) 0.23 x10^3/uL (0-0.4); EOSINOPHILS % (AUTO) 3 % (1-7); LYMPHOCYTES # (AUTO) 0.98 x10^3/uL (1-3.4); LYMPHOCYTES % (AUTO) 13 % (22-44); MD SCAN; MONOCYTES # (AUTO) 0.89 x10^3/uL (0.2-0.8); MONOCYTES % (AUTO) 11 % (2-9); NEUTROPHILS # (AUTO) 5.66 x10^3/uL (1.8-6.8); NEUTROPHILS % (AUTO) 72 % (42-75)
[2020-04-24 08:56] VITALS: BP 133/83
[2020-04-24 09:02] LABS: FREE T4 (FREE THYROXINE) 0.8 ng/dL (0.76-1.46)
[2020-04-24] MEDS: CHOLECALCIFEROL 400 UNITS TABLET PO SCH (09:56)
[2020-04-24] MEDS: MAGNESIUM OXIDE 400 MG TABLET PO SCH (09:56)
[2020-04-24] MEDS: SODIUM BICARBONATE 650 MG TABLET PO SCH ×2 (09:56→21:13)
[2020-04-24] MEDS: MULTIVITS,STRESS FORMULA 1 TABLET PO SCH (09:56)
[2020-04-24] MEDS: ZINC SULFATE 220 MG CAPSULE PO SCH (09:56)
[2020-04-24] MEDS: SODIUM CHLORIDE FLUSH 10ML SYR IVF SCH ×2 (09:57→21:13)
[2020-04-24] MEDS ORDERED: MAGNESIUM SULFATE PMX 4GM/100M 100 ML IV ONE (11:00)
[2020-04-24 13:52] VITALS: BP 128/79
[2020-04-24] MEDS: DAPTOMYCIN 650 MG in SODIUM CHLORIDE 0.9% 100 ML IV SCH (14:27)
[2020-04-24] MEDS: THYROID 30 MG TABLET PO SCH (17:45)
[2020-04-24] MEDS: ASCORBIC ACID 500 MG TABLET PO SCH (17:45)
[2020-04-24 19:43] VITALS: BP 124/80
[2020-04-25 03:20] VITALS: BP 141/82
[2020-04-25] MEDS: HYDROcodone/APAP 5/325 TABLET PO PRN ×3 (04:26→19:23)
[2020-04-25 04:58] LABS: BASOPHILS # (AUTO) 0.04 x10^3/uL (0-0.1); BASOPHILS % (AUTO) 1 % (0-1); EOSINOPHILS # (AUTO) 0.21 x10^3/uL (0-0.4); EOSINOPHILS % (AUTO) 3 % (1-7); LYMPHOCYTES # (AUTO) 1.07 x10^3/uL (1-3.4); LYMPHOCYTES % (AUTO) 14 % (22-44); MD NO; MEAN CORPUSCULAR HEMOGLOBIN 33.1 pg (27.0-34.8); MEAN CORPUSCULAR HGB CONC 33.3 g/dL (32.4-35.8); MEAN CORPUSCULAR VOLUME 99.6 fL (80-100); MEAN PLATELET VOLUME 7.8 fL (7.4-10.4); MONOCYTES # (AUTO) 0.69 x10^3/uL (0.2-0.8); MONOCYTES % (AUTO) 9 % (2-9); NEUTROPHILS # (AUTO) 5.71 x10^3/uL (1.8-6.8); NEUTROPHILS % (AUTO) 74 % (42-75); PLATELET COUNT 218 x10^3/uL (130-400); RED CELL DISTRIBUTION WIDTH 21.7 % (9.6-15.2)
[2020-04-25 04:59] LABS: ALANINE AMINOTRANSFERASE 50 U/L (12-78); ALBUMIN 1.4 g/dL (3.4-5.0); ANION GAP 4 mmol/L (5-15); CALCIUM 7.6 mg/dL (8.5-10.1); CHLORIDE 109 mmol/L (98-107)
[2020-04-25 05:06] LABS: ALKALINE PHOSPHATASE 162 U/L (45-117); BILIRUBIN,TOTAL 3.3 mg/dL (0.2-1.0); CREATINE KINASE, TOTAL 44 U/L (26-192)
[2020-04-25] MEDS: MUPIROCIN OINT 2%, 22GM TP SCH ×2 (05:30→16:13)
[2020-04-25] MEDS: THYROID 30 MG TABLET PO SCH (05:30)
[2020-04-25 05:55] LABS: HCT (SEDRATE) 24.9 % (34.6-47.8)
[2020-04-25] MEDS: ZINC SULFATE 220 MG CAPSULE PO SCH (07:55)
[2020-04-25] MEDS: MULTIVITS,STRESS FORMULA 1 TABLET PO SCH (07:55)
[2020-04-25] MEDS: CHOLECALCIFEROL 400 UNITS TABLET PO SCH (07:56)
[2020-04-25] MEDS: SODIUM BICARBONATE 650 MG TABLET PO SCH ×2 (07:56→20:32)
[2020-04-25] MEDS: ASCORBIC ACID 500 MG TABLET PO SCH ×2 (07:56→16:27)
[2020-04-25] MEDS: MAGNESIUM OXIDE 400 MG TABLET PO SCH (07:56)
[2020-04-25] MEDS: SODIUM CHLORIDE FLUSH 10ML SYR IVF SCH ×2 (07:57→20:33)
[2020-04-25 07:59] VITALS: BP 116/70
[2020-04-25 10:07] LABS: OCCULT BLOOD POSITIVE (NEGATIVE)
[2020-04-25] MEDS: DAPTOMYCIN 650 MG in SODIUM CHLORIDE 0.9% 100 ML IV SCH (14:26)
[2020-04-25 15:34] VITALS: BP 133/82
[2020-04-25 19:12] VITALS: BP 133/79
[2020-04-26 00:30] VITALS: BP 129/78
[2020-04-26] MEDS: MUPIROCIN OINT 2%, 22GM TP SCH ×2 (05:24→17:51)
[2020-04-26] MEDS: HYDROcodone/APAP 5/325 TABLET PO PRN ×3 (05:24→17:50)
[2020-04-26] MEDS: THYROID 30 MG TABLET PO SCH (06:07)
[2020-04-26 06:53] VITALS: BP 128/79
[2020-04-26] MEDS: SODIUM BICARBONATE 650 MG TABLET PO SCH ×2 (10:10→21:34)
[2020-04-26] MEDS: CHOLECALCIFEROL 400 UNITS TABLET PO SCH (10:10)
[2020-04-26] MEDS: ZINC SULFATE 220 MG CAPSULE PO SCH (10:10)
[2020-04-26] MEDS: SODIUM CHLORIDE FLUSH 10ML SYR IVF SCH ×2 (10:10→21:34)
[2020-04-26] MEDS: MULTIVITS,STRESS FORMULA 1 TABLET PO SCH (10:10)
[2020-04-26] MEDS: MAGNESIUM OXIDE 400 MG TABLET PO SCH (10:10)
[2020-04-26] MEDS: ASCORBIC ACID 500 MG TABLET PO SCH ×2 (10:10→17:50)
[2020-04-26] MEDS: DAPTOMYCIN 650 MG in SODIUM CHLORIDE 0.9% 100 ML IV SCH (14:08)
[2020-04-26 14:26] VITALS: BP 113/68
[2020-04-26 20:52] VITALS: BP 120/73
[2020-04-27 01:17] VITALS: BP 132/79
[2020-04-27] MEDS: HYDROcodone/APAP 5/325 TABLET PO PRN ×5 (03:57→23:56)
[2020-04-27] MEDS: THYROID 30 MG TABLET PO SCH (05:15)
[2020-04-27] MEDS: MUPIROCIN OINT 2%, 22GM TP SCH (05:15)
[2020-04-27] MEDS: SODIUM CHLORIDE FLUSH 10ML SYR IVF SCH ×2 (08:21→20:06)
[2020-04-27] MEDS: MAGNESIUM OXIDE 400 MG TABLET PO SCH (08:21)
[2020-04-27] MEDS: CHOLECALCIFEROL 400 UNITS TABLET PO SCH (08:21)
[2020-04-27] MEDS: MULTIVITS,STRESS FORMULA 1 TABLET PO SCH (08:21)
[2020-04-27] MEDS: SODIUM BICARBONATE 650 MG TABLET PO SCH ×2 (08:21→20:08)
[2020-04-27] MEDS: ZINC SULFATE 220 MG CAPSULE PO SCH (08:21)
[2020-04-27] MEDS: ASCORBIC ACID 500 MG TABLET PO SCH ×2 (08:21→17:39)
[2020-04-27 09:11] VITALS: BP 136/80
[2020-04-27 10:45] LABS: ALBUMIN 1.3 g/dL (3.4-5.0); ANION GAP 6 mmol/L (5-15); CALCIUM 7.4 mg/dL (8.5-10.1); CHLORIDE 108 mmol/L (98-107); CREATININE 1.18 mg/dL (0.55-1.02)
[2020-04-27] MEDS: DAPTOMYCIN 650 MG in SODIUM CHLORIDE 0.9% 100 ML IV SCH (13:54)
[2020-04-27 14:05] VITALS: BP 118/73
[2020-04-27 20:32] VITALS: BP 132/81
[2020-04-28 01:11] VITALS: BP 118/71
[2020-04-28] MEDS: HYDROcodone/APAP 5/325 TABLET PO PRN ×3 (04:07→20:02)
[2020-04-28] MEDS: THYROID 30 MG TABLET PO SCH (05:14)
[2020-04-28 07:48] VITALS: BP 127/77
[2020-04-28] MEDS: ZINC SULFATE 220 MG CAPSULE PO SCH (09:00)
[2020-04-28] MEDS: CHOLECALCIFEROL 400 UNITS TABLET PO SCH (09:17)
[2020-04-28] MEDS: SODIUM BICARBONATE 650 MG TABLET PO SCH ×2 (09:18→19:55)
[2020-04-28] MEDS: ASCORBIC ACID 500 MG TABLET PO SCH ×2 (09:18→17:15)
[2020-04-28] MEDS: MAGNESIUM OXIDE 400 MG TABLET PO SCH (09:18)
[2020-04-28] MEDS: MULTIVITS,STRESS FORMULA 1 TABLET PO SCH (09:18)
[2020-04-28] MEDS: SODIUM CHLORIDE FLUSH 10ML SYR IVF SCH ×2 (09:19→19:55)
[2020-04-28 14:25] VITALS: BP 118/69
[2020-04-28] MEDS: DAPTOMYCIN 650 MG in SODIUM CHLORIDE 0.9% 100 ML IV SCH (14:43)
[2020-04-28 20:10] VITALS: BP 143/80
[2020-04-29 01:12] VITALS: BP 108/61
[2020-04-29] MEDS: HYDROcodone/APAP 5/325 TABLET PO PRN ×4 (02:05→21:59)
[2020-04-29] MEDS: THYROID 30 MG TABLET PO SCH (06:00)
[2020-04-29 08:59] VITALS: BP 147/85
[2020-04-29] MEDS: ZINC SULFATE 220 MG CAPSULE PO SCH (09:27)
[2020-04-29] MEDS: CHOLECALCIFEROL 400 UNITS TABLET PO SCH (09:27)
[2020-04-29] MEDS: ASCORBIC ACID 500 MG TABLET PO SCH ×2 (09:27→17:13)
[2020-04-29] MEDS: SODIUM BICARBONATE 650 MG TABLET PO SCH ×2 (09:27→21:59)
[2020-04-29] MEDS: MAGNESIUM OXIDE 400 MG TABLET PO SCH (09:27)
[2020-04-29] MEDS: MULTIVITS,STRESS FORMULA 1 TABLET PO SCH (09:27)
[2020-04-29] MEDS: SODIUM CHLORIDE FLUSH 10ML SYR IVF SCH ×2 (09:28→22:00)
[2020-04-29] MEDS: DAPTOMYCIN 650 MG in SODIUM CHLORIDE 0.9% 100 ML IV SCH (13:37)
[2020-04-29 15:58] VITALS: BP 146/78
[2020-04-29 19:36] VITALS: BP 134/76
[2020-04-30 01:28] VITALS: BP 120/68
[2020-04-30] MEDS: HYDROcodone/APAP 5/325 TABLET PO PRN ×4 (06:13→19:19)
[2020-04-30] MEDS: THYROID 30 MG TABLET PO SCH (06:13)
[2020-04-30 06:20] LABS: MEAN CORPUSCULAR HEMOGLOBIN 33.4 pg (27.0-34.8); MEAN CORPUSCULAR HGB CONC 33.2 g/dL (32.4-35.8); MEAN CORPUSCULAR VOLUME 100.6 fL (80-100); MEAN PLATELET VOLUME 8.2 fL (7.4-10.4); PLATELET COUNT 134 x10^3/uL (130-400); RED BLOOD COUNT 2.21 x10^6/uL (3.82-5.3)
[2020-04-30 06:30] LABS: ALANINE AMINOTRANSFERASE 40 U/L (12-78); ALBUMIN 1.4 g/dL (3.4-5.0); ANION GAP 6 mmol/L (5-15); CALCIUM 7.3 mg/dL (8.5-10.1); CHLORIDE 111 mmol/L (98-107); CREATININE 1.08 mg/dL (0.55-1.02)
[2020-04-30 06:37] LABS: ALKALINE PHOSPHATASE 165 U/L (45-117); BILIRUBIN,TOTAL 2.1 mg/dL (0.2-1.0); TOTAL PROTEIN 7.3 g/dL (6.4-8.2)
[2020-04-30 07:35] LABS: BAND#(MANUAL) 0.47 x10^3/uL; BANDS%(MANUAL) 7 % (0-7); BASOS#(MANUAL) 0.07 x10^3/uL (0-0.1); BASOS% (MANUAL) 1 % (0-1); EOS% (MANUAL) 3 % (1-7); LYMPH#(MANUAL) 0.74 x10^3/uL (1-3.4); LYMPHS% (MANUAL) 11 % (22-44); MD YES; MONOS#(MANUAL) 0.34 x10^3/uL (0.3-2.7); MONOS% (MANUAL) 5 % (2-9); SEG#(MANUAL) 4.89 x10^3/uL (1.8-6.8); SEGS% (MANUAL) 73 % (42-75)
[2020-04-30 07:36] LABS: <PLATELET ESTIMATE> ADEQUATE; <PLT MORPHOLOGY> NORMAL PLT MORPH
[2020-04-30 07:37] LABS: ANISOCYTOSIS 1+
[2020-04-30 08:06] VITALS: BP 128/72
[2020-04-30] MEDS: ZINC SULFATE 220 MG CAPSULE PO SCH (10:06)
[2020-04-30] MEDS: SODIUM BICARBONATE 650 MG TABLET PO SCH ×2 (10:06→19:19)
[2020-04-30] MEDS: MULTIVITS,STRESS FORMULA 1 TABLET PO SCH (10:07)
[2020-04-30] MEDS: MAGNESIUM OXIDE 400 MG TABLET PO SCH (10:07)
[2020-04-30] MEDS: CHOLECALCIFEROL 400 UNITS TABLET PO SCH (10:08)
[2020-04-30] MEDS: ASCORBIC ACID 500 MG TABLET PO SCH ×2 (10:08→17:36)
[2020-04-30] MEDS: ERGOCALCIFEROL 50,000 UNIT CAPSULE PO SCH (10:09)
[2020-04-30] MEDS: SODIUM CHLORIDE FLUSH 10ML SYR IVF SCH ×2 (10:10→19:19)
[2020-04-30] MEDS: DAPTOMYCIN 650 MG in SODIUM CHLORIDE 0.9% 100 ML IV SCH (13:49)
[2020-04-30 14:33] VITALS: BP 125/73
[2020-04-30 20:44] VITALS: BP 143/83
[2020-05-01] VITALS (10 sets, daily range): BP systolic 111–145; BP diastolic 64–81
[2020-05-01] MEDS: HYDROcodone/APAP 5/325 TABLET PO PRN ×5 (01:34→21:02)
[2020-05-01 03:49] LABS: ALANINE AMINOTRANSFERASE 35 U/L (12-78); ALBUMIN 1.3 g/dL (3.4-5.0); ANION GAP 5 mmol/L (5-15); CALCIUM 7.3 mg/dL (8.5-10.1); CHLORIDE 112 mmol/L (98-107); CREATININE 0.99 mg/dL (0.55-1.02)
[2020-05-01 03:52] LABS: ALKALINE PHOSPHATASE 149 U/L (45-117); BILIRUBIN,TOTAL 1.9 mg/dL (0.2-1.0); TOTAL PROTEIN 6.7 g/dL (6.4-8.2)
[2020-05-01 03:54] LABS: MEAN CORPUSCULAR HEMOGLOBIN 32.9 pg (27.0-34.8); MEAN CORPUSCULAR HGB CONC 32.2 g/dL (32.4-35.8); MEAN CORPUSCULAR VOLUME 102.2 fL (80-100); RED BLOOD COUNT 2.01 x10^6/uL (3.82-5.3); RED CELL DISTRIBUTION WIDTH 20.9 % (9.6-15.2)
[2020-05-01 04:14] LABS: MD YES
[2020-05-01 04:18] LABS: BAND#(MANUAL) 0.05 x10^3/uL; BANDS%(MANUAL) 1 % (0-7); BASOS#(MANUAL) 0.05 x10^3/uL (0-0.1); BASOS% (MANUAL) 1 % (0-1); EOS#(MANUAL) 0.74 x10^3/uL (0.0-0.4); EOS% (MANUAL) 15 % (1-7); LYMPH#(MANUAL) 0.64 x10^3/uL (1-3.4); LYMPHS% (MANUAL) 13 % (22-44); MONOS#(MANUAL) 0.34 x10^3/uL (0.3-2.7); MONOS% (MANUAL) 7 % (2-9); SEG#(MANUAL) 3.09 x10^3/uL (1.8-6.8); SEGS% (MANUAL) 63 % (42-75)
[2020-05-01 04:19] LABS: ANISOCYTOSIS 1+
[2020-05-01 04:20] LABS: POLYCHROMASIA 1+
[2020-05-01 04:21] LABS: <PLATELET ESTIMATE> DECREASED; <PLT MORPHOLOGY> NORMAL PLT MORPH; PLATELET COUNT 110 x10^3/uL (130-400)
[2020-05-01] MEDS: THYROID 30 MG TABLET PO SCH (06:01)
[2020-05-01] MEDS: SODIUM BICARBONATE 650 MG TABLET PO SCH ×2 (08:19→19:59)
[2020-05-01] MEDS: MULTIVITS,STRESS FORMULA 1 TABLET PO SCH (08:19)
[2020-05-01] MEDS: ASCORBIC ACID 500 MG TABLET PO SCH ×2 (08:19→16:50)
[2020-05-01] MEDS: CHOLECALCIFEROL 400 UNITS TABLET PO SCH (08:19)
[2020-05-01] MEDS: MAGNESIUM OXIDE 400 MG TABLET PO SCH (08:19)
[2020-05-01] MEDS: SODIUM CHLORIDE FLUSH 10ML SYR IVF SCH ×2 (08:19→19:59)
[2020-05-01] MEDS: ZINC SULFATE 220 MG CAPSULE PO SCH (08:19)
[2020-05-01] MEDS: DAPTOMYCIN 650 MG in SODIUM CHLORIDE 0.9% 100 ML IV SCH (13:04)
[2020-05-02 00:27] VITALS: BP 143/84
[2020-05-02] MEDS: HYDROcodone/APAP 5/325 TABLET PO PRN ×5 (03:28→21:18)
[2020-05-02] MEDS: THYROID 30 MG TABLET PO SCH (05:55)
[2020-05-02 06:13] LABS: MEAN CORPUSCULAR HEMOGLOBIN 33.8 pg (27.0-34.8); MEAN CORPUSCULAR HGB CONC 33.7 g/dL (32.4-35.8); MEAN CORPUSCULAR VOLUME 100.1 fL (80-100); MEAN PLATELET VOLUME 8.4 fL (7.4-10.4); PLATELET COUNT 97 x10^3/uL (130-400); RED BLOOD COUNT 2.24 x10^6/uL (3.82-5.3); RED CELL DISTRIBUTION WIDTH 20.2 % (9.6-15.2)
[2020-05-02 06:22] LABS: ALANINE AMINOTRANSFERASE 35 U/L (12-78); ALBUMIN 1.3 g/dL (3.4-5.0); ANION GAP 6 mmol/L (5-15); CALCIUM 7.3 mg/dL (8.5-10.1); CHLORIDE 111 mmol/L (98-107)
[2020-05-02 06:29] LABS: ALKALINE PHOSPHATASE 150 U/L (45-117); BILIRUBIN,TOTAL 2.4 mg/dL (0.2-1.0); CREATINE KINASE, TOTAL 33 U/L (26-192); CREATININE 1.01 mg/dL (0.55-1.02); TOTAL PROTEIN 6.9 g/dL (6.4-8.2)
[2020-05-02 06:43] LABS: BASOPHILS # (AUTO) 0.06 x10^3/uL (0-0.1); BASOPHILS % (AUTO) 1 % (0-1); EOSINOPHILS # (AUTO) 0.61 x10^3/uL (0-0.4); EOSINOPHILS % (AUTO) 11 % (1-7); LYMPHOCYTES # (AUTO) 0.99 x10^3/uL (1-3.4); LYMPHOCYTES % (AUTO) 17 % (22-44); MD SCAN; MONOCYTES # (AUTO) 0.56 x10^3/uL (0.2-0.8); MONOCYTES % (AUTO) 10 % (2-9); NEUTROPHILS # (AUTO) 3.51 x10^3/uL (1.8-6.8); NEUTROPHILS % (AUTO) 61 % (42-75)
[2020-05-02 06:51] LABS: SEDIMENTATION RATE > 120 mm/hr (0-20)
[2020-05-02 06:52] LABS: HCT (SEDRATE) 22.4 % (34.6-47.8)
[2020-05-02 06:59] VITALS: BP 127/76
[2020-05-02] MEDS: CHOLECALCIFEROL 400 UNITS TABLET PO SCH (07:14)
[2020-05-02] MEDS: MAGNESIUM OXIDE 400 MG TABLET PO SCH (07:14)
[2020-05-02] MEDS: SODIUM BICARBONATE 650 MG TABLET PO SCH ×2 (07:14→21:18)
[2020-05-02] MEDS: SODIUM CHLORIDE FLUSH 10ML SYR IVF SCH ×2 (07:15→21:19)
[2020-05-02] MEDS: ZINC SULFATE 220 MG CAPSULE PO SCH (07:15)
[2020-05-02] MEDS: MULTIVITS,STRESS FORMULA 1 TABLET PO SCH (07:15)
[2020-05-02] MEDS: ASCORBIC ACID 500 MG TABLET PO SCH ×2 (07:15→17:59)
[2020-05-02 13:07] VITALS: BP 150/87
[2020-05-02] MEDS: DAPTOMYCIN 650 MG in SODIUM CHLORIDE 0.9% 100 ML IV SCH (13:39)
[2020-05-02 20:14] VITALS: BP 102/56
[2020-05-03 01:55] VITALS: BP 120/68
[2020-05-03] MEDS: HYDROcodone/APAP 5/325 TABLET PO PRN ×4 (03:37→21:05)
[2020-05-03] MEDS: THYROID 30 MG TABLET PO SCH (05:31)
[2020-05-03 05:53] LABS: ANION GAP 7 mmol/L (5-15); CALCIUM 7.5 mg/dL (8.5-10.1); CHLORIDE 112 mmol/L (98-107); CREATININE 1.09 mg/dL (0.55-1.02)
[2020-05-03 06:59] VITALS: BP 129/80
[2020-05-03] MEDS: ASCORBIC ACID 500 MG TABLET PO SCH ×2 (08:13→16:43)
[2020-05-03] MEDS: CHOLECALCIFEROL 400 UNITS TABLET PO SCH (08:13)
[2020-05-03] MEDS: ZINC SULFATE 220 MG CAPSULE PO SCH (08:14)
[2020-05-03] MEDS: SODIUM BICARBONATE 650 MG TABLET PO SCH ×2 (08:14→21:05)
[2020-05-03] MEDS: MULTIVITS,STRESS FORMULA 1 TABLET PO SCH (08:14)
[2020-05-03] MEDS: MAGNESIUM OXIDE 400 MG TABLET PO SCH (08:14)
[2020-05-03] MEDS: SODIUM CHLORIDE FLUSH 10ML SYR IVF SCH ×2 (08:15→21:00)
[2020-05-03] MEDS: DAPTOMYCIN 650 MG in SODIUM CHLORIDE 0.9% 100 ML IV SCH (13:20)
[2020-05-03] MEDS ORDERED: LIDOCAINE-MPF 1%, 5ML ONE (14:28)
[2020-05-03 19:51] VITALS: BP 136/82
[2020-05-04] MEDS: HYDROcodone/APAP 5/325 TABLET PO PRN ×4 (01:02→20:06)
[2020-05-04 01:08] VITALS: BP 134/77
[2020-05-04] MEDS: THYROID 30 MG TABLET PO SCH (05:20)
[2020-05-04 05:50] LABS: ANION GAP 6 mmol/L (5-15); CALCIUM 7.5 mg/dL (8.5-10.1); CHLORIDE 112 mmol/L (98-107); CREATININE 1.11 mg/dL (0.55-1.02)
[2020-05-04 05:55] LABS: MEAN CORPUSCULAR HEMOGLOBIN 33.3 pg (27.0-34.8); MEAN CORPUSCULAR VOLUME 100.8 fL (80-100); MEAN PLATELET VOLUME 8.4 fL (7.4-10.4); PLATELET COUNT 85 x10^3/uL (130-400); RED BLOOD COUNT 2.28 x10^6/uL (3.82-5.3); RED CELL DISTRIBUTION WIDTH 20.2 % (9.6-15.2)
[2020-05-04 06:26] LABS: BASOPHILS # (AUTO) 0.03 x10^3/uL (0-0.1); BASOPHILS % (AUTO) 1 % (0-1); EOSINOPHILS # (AUTO) 0.68 x10^3/uL (0-0.4); EOSINOPHILS % (AUTO) 12 % (1-7); LYMPHOCYTES # (AUTO) 1.17 x10^3/uL (1-3.4); LYMPHOCYTES % (AUTO) 20 % (22-44); MD SCAN; MONOCYTES # (AUTO) 0.45 x10^3/uL (0.2-0.8); MONOCYTES % (AUTO) 8 % (2-9); NEUTROPHILS # (AUTO) 3.56 x10^3/uL (1.8-6.8); NEUTROPHILS % (AUTO) 60 % (42-75)
[2020-05-04] MEDS: ASCORBIC ACID 500 MG TABLET PO SCH ×2 (09:08→17:17)
[2020-05-04] MEDS: CHOLECALCIFEROL 400 UNITS TABLET PO SCH (09:08)
[2020-05-04] MEDS: SODIUM BICARBONATE 650 MG TABLET PO SCH ×2 (09:08→20:06)
[2020-05-04] MEDS: ZINC SULFATE 220 MG CAPSULE PO SCH (09:08)
[2020-05-04] MEDS: SODIUM CHLORIDE FLUSH 10ML SYR IVF SCH ×2 (09:08→20:06)
[2020-05-04] MEDS: MULTIVITS,STRESS FORMULA 1 TABLET PO SCH (09:08)
[2020-05-04] MEDS: MAGNESIUM OXIDE 400 MG TABLET PO SCH (09:10)
[2020-05-04 09:15] VITALS: BP 122/76
[2020-05-04] MEDS ORDERED: GADOTERATE 7.5 MMOL/15 ML SYR ONE (13:00)
[2020-05-04] MEDS: DAPTOMYCIN 650 MG in SODIUM CHLORIDE 0.9% 100 ML IV SCH (14:16)
[2020-05-04 15:36] VITALS: BP 134/85
[2020-05-04 19:15] VITALS: BP 132/82
[2020-05-05 01:00] VITALS: BP 130/73
[2020-05-05] MEDS: HYDROcodone/APAP 5/325 TABLET PO PRN ×6 (01:02→22:08)
[2020-05-05] MEDS: THYROID 30 MG TABLET PO SCH (05:10)
[2020-05-05 05:37] LABS: MEAN CORPUSCULAR HEMOGLOBIN 33.6 pg (27.0-34.8); MEAN CORPUSCULAR HGB CONC 33.3 g/dL (32.4-35.8); MEAN PLATELET VOLUME 8.4 fL (7.4-10.4); PLATELET COUNT 81 x10^3/uL (130-400); RED BLOOD COUNT 2.19 x10^6/uL (3.82-5.3); RED CELL DISTRIBUTION WIDTH 19.9 % (9.6-15.2)
[2020-05-05 05:44] LABS: ANION GAP 7 mmol/L (5-15); CALCIUM 7.4 mg/dL (8.5-10.1); CHLORIDE 112 mmol/L (98-107); CREATININE 0.91 mg/dL (0.55-1.02)
[2020-05-05 05:53] LABS: BASOPHILS # (AUTO) 0.04 x10^3/uL (0-0.1); BASOPHILS % (AUTO) 1 % (0-1); EOSINOPHILS # (AUTO) 0.54 x10^3/uL (0-0.4); EOSINOPHILS % (AUTO) 10 % (1-7); LYMPHOCYTES % (AUTO) 19 % (22-44); MD SCAN; MONOCYTES # (AUTO) 0.37 x10^3/uL (0.2-0.8); MONOCYTES % (AUTO) 7 % (2-9); NEUTROPHILS # (AUTO) 3.34 x10^3/uL (1.8-6.8); NEUTROPHILS % (AUTO) 63 % (42-75)
[2020-05-05 08:45] VITALS: BP 128/78
[2020-05-05] MEDS: SODIUM BICARBONATE 650 MG TABLET PO SCH ×2 (09:26→20:40)
[2020-05-05] MEDS: MULTIVITS,STRESS FORMULA 1 TABLET PO SCH (09:26)
[2020-05-05] MEDS: MAGNESIUM OXIDE 400 MG TABLET PO SCH (09:26)
[2020-05-05] MEDS: ZINC SULFATE 220 MG CAPSULE PO SCH (09:26)
[2020-05-05] MEDS: CHOLECALCIFEROL 400 UNITS TABLET PO SCH (09:26)
[2020-05-05] MEDS: ASCORBIC ACID 500 MG TABLET PO SCH ×2 (09:27→17:09)
[2020-05-05] MEDS: SODIUM CHLORIDE FLUSH 10ML SYR IVF SCH ×2 (09:27→20:40)
[2020-05-05] MEDS: DAPTOMYCIN 650 MG in SODIUM CHLORIDE 0.9% 100 ML IV SCH (13:55)
[2020-05-05 14:51] VITALS: BP 138/81
[2020-05-05 19:18] VITALS: BP 126/74
[2020-05-06 00:44] VITALS: BP 136/67
[2020-05-06] MEDS: HYDROcodone/APAP 5/325 TABLET PO PRN ×3 (03:17→17:47)
[2020-05-06] MEDS: THYROID 30 MG TABLET PO SCH (05:29)
[2020-05-06 05:50] LABS: MEAN CORPUSCULAR HEMOGLOBIN 33.3 pg (27.0-34.8); MEAN CORPUSCULAR HGB CONC 32.9 g/dL (32.4-35.8); MEAN CORPUSCULAR VOLUME 101.2 fL (80-100); MEAN PLATELET VOLUME 7.9 fL (7.4-10.4); PLATELET COUNT 94 x10^3/uL (130-400); RED BLOOD COUNT 2.15 x10^6/uL (3.82-5.3); RED CELL DISTRIBUTION WIDTH 20.6 % (9.6-15.2)
[2020-05-06 06:00] LABS: ANION GAP 6 mmol/L (5-15); CALCIUM 7.3 mg/dL (8.5-10.1); CHLORIDE 114 mmol/L (98-107)
[2020-05-06 06:02] LABS: CREATININE 0.97 mg/dL (0.55-1.02)
[2020-05-06 06:09] LABS: BASOPHILS # (AUTO) 0.02 x10^3/uL (0-0.1); BASOPHILS % (AUTO) 0 % (0-1); EOSINOPHILS # (AUTO) 0.52 x10^3/uL (0-0.4); EOSINOPHILS % (AUTO) 10 % (1-7); LYMPHOCYTES # (AUTO) 1.04 x10^3/uL (1-3.4); LYMPHOCYTES % (AUTO) 20 % (22-44); MD SCAN; MONOCYTES # (AUTO) 0.47 x10^3/uL (0.2-0.8); MONOCYTES % (AUTO) 9 % (2-9); NEUTROPHILS # (AUTO) 3.24 x10^3/uL (1.8-6.8); NEUTROPHILS % (AUTO) 61 % (42-75)
[2020-05-06 06:50] VITALS: BP 125/73
[2020-05-06] MEDS: SODIUM BICARBONATE 650 MG TABLET PO SCH ×2 (08:28→21:00)
[2020-05-06] MEDS: MULTIVITS,STRESS FORMULA 1 TABLET PO SCH (08:28)
[2020-05-06] MEDS: ASCORBIC ACID 500 MG TABLET PO SCH ×2 (08:28→17:47)
[2020-05-06] MEDS: ZINC SULFATE 220 MG CAPSULE PO SCH (08:28)
[2020-05-06] MEDS: SODIUM CHLORIDE FLUSH 10ML SYR IVF SCH ×2 (08:28→21:13)
[2020-05-06] MEDS: MAGNESIUM OXIDE 400 MG TABLET PO SCH (08:28)
[2020-05-06] MEDS ORDERED: CHLORHEXIDINE 15 ML UDC MM ONE (12:48)
[2020-05-06] MEDS ORDERED: CHLORHEXIDINE 15 ML UDC ONE (12:50)
[2020-05-06] MEDS ORDERED: MIDAZOLAM 1 MG/ML, 2ML ONE (13:47)
[2020-05-06] MEDS ORDERED: FENTANYL PF 250 MCG/5ML ONE (13:47)
[2020-05-06] MEDS ORDERED: PROPOFOL 50 ML ONE ×3 (13:47→15:25)
[2020-05-06] MEDS ORDERED: LIDOCAINE 1%, 20ML ONE (13:54)
[2020-05-06] MEDS ORDERED: morphine SULFATE/PF 1 MG/ML, 10ML ONE (13:54)
[2020-05-06] MEDS ORDERED: ROPIvacaine/PF 0.5%, 30 ML ONE (13:54)
[2020-05-06] MEDS ORDERED: EPHEDRINE 50 MG/ML, 1ML IVPush PRN (14:00)
[2020-05-06] MEDS ORDERED: PROMETHAZINE 25 MG/ML, 1ML IVPush PRN (14:00)
[2020-05-06] MEDS ORDERED: DIAZEPAM 5 MG/ML, 2ML IVPush PRN (14:00)
[2020-05-06] MEDS ORDERED: HYDROmorphone 1 MG/ML, 1ML INJ IVPush PRN (14:00)
[2020-05-06] MEDS ORDERED: LABETALOL 5MG/ML, 20ML IV PRN (14:00)
[2020-05-06] MEDS ORDERED: EPHEDRINE 50 MG/ML, 1ML IM PRN (14:00)
[2020-05-06] MEDS ORDERED: DIPHENHYDRAMINE 50 MG/ML, 1ML IVPush PRN (14:00)
[2020-05-06] MEDS ORDERED: ONDANSETRON 2MG/ML, 2ML IVPush PRN (14:00)
[2020-05-06] MEDS ORDERED: OXYcodone 5 MG/5 ML ORAL.SOL UDC PO PRN (14:00)
[2020-05-06] MEDS ORDERED: CEFAZOLIN 1,000 MG ONE (14:12)
[2020-05-06] MEDS ORDERED: HYDROmorphone 2 MG/ML, 1ML ONE ×2 (14:34→20:48)
[2020-05-06] MEDS ORDERED: FENTANYL PF 100 MCG/2ML ONE ×2 (15:31→16:27)
[2020-05-06] MEDS ORDERED: HYDROmorphone 1 MG/ML, 1ML INJ ONE (16:21)
[2020-05-06] MEDS ORDERED: OXYcodone 5 MG/5 ML ORAL.SOL UDC ONE (16:22)
[2020-05-06] MEDS ORDERED: LORazepam 2 MG/ML, 1ML ONE (16:22)
[2020-05-06] MEDS: FENTANYL PF 100 MCG/2ML IV PRN ×2 (16:28→16:46)
[2020-05-06] MEDS ORDERED: LORazepam 2 MG/ML, 1ML IVPush PRN (17:00)
[2020-05-06 17:41] VITALS: BP 151/90
[2020-05-06] MEDS: DAPTOMYCIN 650 MG in SODIUM CHLORIDE 0.9% 100 ML IV SCH (18:08)
[2020-05-06] MEDS ORDERED: HYDROmorphone 1 MG/ML, 1ML INJ IM ONE (20:45)
[2020-05-06] MEDS ORDERED: HYDROmorphone 1 MG/ML, 1ML INJ IV ONE (21:00)
[2020-05-06 21:09] VITALS: BP 131/77
[2020-05-07 00:28] VITALS: BP 130/79
[2020-05-07] MEDS: HYDROcodone/APAP 5/325 TABLET PO PRN ×6 (00:42→22:35)
[2020-05-07 05:34] LABS: MEAN CORPUSCULAR HEMOGLOBIN 33.6 pg (27.0-34.8); MEAN CORPUSCULAR HGB CONC 33.3 g/dL (32.4-35.8); MEAN CORPUSCULAR VOLUME 100.9 fL (80-100); MEAN PLATELET VOLUME 8.1 fL (7.4-10.4); PLATELET COUNT 121 x10^3/uL (130-400); RED BLOOD COUNT 2.18 x10^6/uL (3.82-5.3); RED CELL DISTRIBUTION WIDTH 20.5 % (9.6-15.2)
[2020-05-07 05:48] LABS: ANION GAP 7 mmol/L (5-15); CALCIUM 7.3 mg/dL (8.5-10.1); CHLORIDE 113 mmol/L (98-107)
[2020-05-07 05:49] LABS: CREATININE 1.17 mg/dL (0.55-1.02)
[2020-05-07] MEDS: THYROID 30 MG TABLET PO SCH (06:27)
[2020-05-07 06:42] LABS: BASOPHILS # (AUTO) 0.05 x10^3/uL (0-0.1); BASOPHILS % (AUTO) 1 % (0-1); EOSINOPHILS # (AUTO) 0.45 x10^3/uL (0-0.4); EOSINOPHILS % (AUTO) 6 % (1-7); LYMPHOCYTES % (AUTO) 17 % (22-44); MD SCAN; MONOCYTES % (AUTO) 10 % (2-9); NEUTROPHILS # (AUTO) 4.81 x10^3/uL (1.8-6.8); NEUTROPHILS % (AUTO) 67 % (42-75)
[2020-05-07 07:32] VITALS: BP 117/68
[2020-05-07] MEDS: MULTIVITS,STRESS FORMULA 1 TABLET PO SCH (08:24)
[2020-05-07] MEDS: MAGNESIUM OXIDE 400 MG TABLET PO SCH (08:24)
[2020-05-07] MEDS: ASCORBIC ACID 500 MG TABLET PO SCH ×2 (08:24→18:18)
[2020-05-07] MEDS: SODIUM CHLORIDE FLUSH 10ML SYR IVF SCH ×2 (08:24→20:40)
[2020-05-07] MEDS: ERGOCALCIFEROL 50,000 UNIT CAPSULE PO SCH (08:24)
[2020-05-07] MEDS: ZINC SULFATE 220 MG CAPSULE PO SCH (08:24)
[2020-05-07] MEDS: SODIUM BICARBONATE 650 MG TABLET PO SCH ×2 (08:24→20:40)
[2020-05-07 13:02] VITALS: BP 138/83
[2020-05-07] MEDS: DAPTOMYCIN 650 MG in SODIUM CHLORIDE 0.9% 100 ML IV SCH (14:00)
[2020-05-07 18:52] VITALS: BP 134/79
[2020-05-08 00:32] VITALS: BP 104/61
[2020-05-08] MEDS: HYDROcodone/APAP 5/325 TABLET PO PRN ×4 (02:37→19:43)
[2020-05-08] MEDS: THYROID 30 MG TABLET PO SCH (05:10)
[2020-05-08 05:23] LABS: ALBUMIN 1.4 g/dL (3.4-5.0); ANION GAP 5 mmol/L (5-15); CALCIUM 7.1 mg/dL (8.5-10.1); CHLORIDE 112 mmol/L (98-107); CREATININE 1.13 mg/dL (0.55-1.02)
[2020-05-08 05:26] LABS: MEAN CORPUSCULAR HEMOGLOBIN 33.9 pg (27.0-34.8); MEAN CORPUSCULAR HGB CONC 33.5 g/dL (32.4-35.8); MEAN CORPUSCULAR VOLUME 101.2 fL (80-100); MEAN PLATELET VOLUME 8.2 fL (7.4-10.4); PLATELET COUNT 137 x10^3/uL (130-400); RED BLOOD COUNT 2.16 x10^6/uL (3.82-5.3); RED CELL DISTRIBUTION WIDTH 20.3 % (9.6-15.2)
[2020-05-08 06:10] LABS: BASOPHILS # (AUTO) 0.03 x10^3/uL (0-0.1); BASOPHILS % (AUTO) 1 % (0-1); EOSINOPHILS # (AUTO) 0.47 x10^3/uL (0-0.4); EOSINOPHILS % (AUTO) 8 % (1-7); LYMPHOCYTES # (AUTO) 1.21 x10^3/uL (1-3.4); LYMPHOCYTES % (AUTO) 21 % (22-44); MD SCAN; MONOCYTES # (AUTO) 0.48 x10^3/uL (0.2-0.8); MONOCYTES % (AUTO) 8 % (2-9); NEUTROPHILS # (AUTO) 3.49 x10^3/uL (1.8-6.8); NEUTROPHILS % (AUTO) 62 % (42-75)
[2020-05-08 07:01] VITALS: BP 115/69
[2020-05-08] MEDS: MAGNESIUM OXIDE 400 MG TABLET PO SCH (09:14)
[2020-05-08] MEDS: ASCORBIC ACID 500 MG TABLET PO SCH ×2 (09:14→16:39)
[2020-05-08] MEDS: MULTIVITS,STRESS FORMULA 1 TABLET PO SCH (09:14)
[2020-05-08] MEDS: SODIUM BICARBONATE 650 MG TABLET PO SCH ×2 (09:14→20:05)
[2020-05-08] MEDS: ZINC SULFATE 220 MG CAPSULE PO SCH (09:14)
[2020-05-08] MEDS: SODIUM CHLORIDE FLUSH 10ML SYR IVF SCH ×2 (09:23→20:05)
[2020-05-08 13:23] VITALS: BP 116/69
[2020-05-08] MEDS: DAPTOMYCIN 650 MG in SODIUM CHLORIDE 0.9% 100 ML IV SCH (13:42)
[2020-05-08 20:00] VITALS: BP 122/76
[2020-05-09] VITALS (11 sets, daily range): BP systolic 111–156; BP diastolic 69–94
[2020-05-09] MEDS: HYDROcodone/APAP 5/325 TABLET PO PRN ×5 (00:14→21:24)
[2020-05-09] MEDS: THYROID 30 MG TABLET PO SCH (05:13)
[2020-05-09 05:28] LABS: BASOPHILS # (AUTO) 0.03 x10^3/uL (0-0.1); BASOPHILS % (AUTO) 1 % (0-1); EOSINOPHILS # (AUTO) 0.42 x10^3/uL (0-0.4); EOSINOPHILS % (AUTO) 8 % (1-7); LYMPHOCYTES # (AUTO) 1.09 x10^3/uL (1-3.4); LYMPHOCYTES % (AUTO) 22 % (22-44); MD NO; MEAN CORPUSCULAR HEMOGLOBIN 34.2 pg (27.0-34.8); MEAN CORPUSCULAR HGB CONC 33.2 g/dL (32.4-35.8); MEAN CORPUSCULAR VOLUME 103.1 fL (80-100); MEAN PLATELET VOLUME 7.7 fL (7.4-10.4); MONOCYTES # (AUTO) 0.41 x10^3/uL (0.2-0.8); MONOCYTES % (AUTO) 8 % (2-9); NEUTROPHILS # (AUTO) 3.13 x10^3/uL (1.8-6.8); NEUTROPHILS % (AUTO) 62 % (42-75); PLATELET COUNT 161 x10^3/uL (130-400); RED BLOOD COUNT 2.02 x10^6/uL (3.82-5.3)
[2020-05-09 05:30] LABS: ALBUMIN 1.3 g/dL (3.4-5.0); ANION GAP 8 mmol/L (5-15); CALCIUM 7.4 mg/dL (8.5-10.1); CHLORIDE 113 mmol/L (98-107)
[2020-05-09 05:38] LABS: ALANINE AMINOTRANSFERASE 24 U/L (12-78); ALKALINE PHOSPHATASE 151 U/L (45-117); BILIRUBIN,TOTAL 1.8 mg/dL (0.2-1.0); CREATINE KINASE, TOTAL 37 U/L (26-192); CREATININE 0.95 mg/dL (0.55-1.02); TOTAL PROTEIN 6.8 g/dL (6.4-8.2)
[2020-05-09 06:32] LABS: SEDIMENTATION RATE > 120 mm/hr (0-20)
[2020-05-09 06:35] LABS: HCT (SEDRATE) 20.9 % (34.6-47.8)
[2020-05-09] MEDS: MULTIVITS,STRESS FORMULA 1 TABLET PO SCH (07:40)
[2020-05-09] MEDS: ASCORBIC ACID 500 MG TABLET PO SCH ×2 (07:40→16:29)
[2020-05-09] MEDS: SODIUM BICARBONATE 650 MG TABLET PO SCH ×2 (07:40→21:23)
[2020-05-09] MEDS: ZINC SULFATE 220 MG CAPSULE PO SCH (07:41)
[2020-05-09] MEDS: SODIUM CHLORIDE FLUSH 10ML SYR IVF SCH ×2 (07:42→21:26)
[2020-05-09] MEDS: MAGNESIUM OXIDE 400 MG TABLET PO SCH (07:44)
[2020-05-09] MEDS: DAPTOMYCIN 650 MG in SODIUM CHLORIDE 0.9% 100 ML IV SCH (14:26)
[2020-05-10] MEDS: HYDROcodone/APAP 5/325 TABLET PO PRN ×5 (01:22→23:22)
[2020-05-10 01:26] VITALS: BP 128/76
[2020-05-10] MEDS: THYROID 30 MG TABLET PO SCH (05:26)
[2020-05-10 06:01] LABS: ANION GAP 6 mmol/L (5-15); CALCIUM 7.3 mg/dL (8.5-10.1); CHLORIDE 112 mmol/L (98-107)
[2020-05-10 06:02] LABS: CREATININE 0.97 mg/dL (0.55-1.02)
[2020-05-10 06:05] LABS: BASOPHILS # (AUTO) 0.05 x10^3/uL (0-0.1); BASOPHILS % (AUTO) 1 % (0-1); EOSINOPHILS # (AUTO) 0.45 x10^3/uL (0-0.4); EOSINOPHILS % (AUTO) 7 % (1-7); LYMPHOCYTES # (AUTO) 1.38 x10^3/uL (1-3.4); LYMPHOCYTES % (AUTO) 22 % (22-44); MD NO; MEAN CORPUSCULAR HEMOGLOBIN 33.3 pg (27.0-34.8); MEAN CORPUSCULAR HGB CONC 34.2 g/dL (32.4-35.8); MEAN CORPUSCULAR VOLUME 97.5 fL (80-100); MEAN PLATELET VOLUME 7.8 fL (7.4-10.4); MONOCYTES # (AUTO) 0.47 x10^3/uL (0.2-0.8); MONOCYTES % (AUTO) 8 % (2-9); NEUTROPHILS # (AUTO) 3.95 x10^3/uL (1.8-6.8); NEUTROPHILS % (AUTO) 63 % (42-75); PLATELET COUNT 183 x10^3/uL (130-400); RED BLOOD COUNT 2.66 x10^6/uL (3.82-5.3); RED CELL DISTRIBUTION WIDTH 21.3 % (9.6-15.2)
[2020-05-10 07:23] VITALS: BP 113/69
[2020-05-10] MEDS: MAGNESIUM OXIDE 400 MG TABLET PO SCH (08:37)
[2020-05-10] MEDS: MULTIVITS,STRESS FORMULA 1 TABLET PO SCH (08:38)
[2020-05-10] MEDS: SODIUM BICARBONATE 650 MG TABLET PO SCH ×2 (08:38→20:16)
[2020-05-10] MEDS: ZINC SULFATE 220 MG CAPSULE PO SCH (08:38)
[2020-05-10] MEDS: ASCORBIC ACID 500 MG TABLET PO SCH ×2 (08:38→17:20)
[2020-05-10] MEDS: SODIUM CHLORIDE FLUSH 10ML SYR IVF SCH ×2 (08:48→20:16)
[2020-05-10] MEDS: DAPTOMYCIN 650 MG in SODIUM CHLORIDE 0.9% 100 ML IV SCH (13:18)
[2020-05-10 13:52] VITALS: BP 122/72
[2020-05-10 18:24] VITALS: BP 124/75
[2020-05-11 00:07] VITALS: BP 117/73
[2020-05-11] MEDS: HYDROcodone/APAP 5/325 TABLET PO PRN ×4 (04:59→20:28)
[2020-05-11] MEDS: THYROID 30 MG TABLET PO SCH (05:00)
[2020-05-11 05:21] LABS: BASOPHILS # (AUTO) 0.08 x10^3/uL (0-0.1); BASOPHILS % (AUTO) 1 % (0-1); EOSINOPHILS # (AUTO) 0.37 x10^3/uL (0-0.4); EOSINOPHILS % (AUTO) 6 % (1-7); LYMPHOCYTES # (AUTO) 1.48 x10^3/uL (1-3.4); LYMPHOCYTES % (AUTO) 23 % (22-44); MD NO; MEAN CORPUSCULAR HEMOGLOBIN 32.7 pg (27.0-34.8); MEAN CORPUSCULAR HGB CONC 33.3 g/dL (32.4-35.8); MEAN CORPUSCULAR VOLUME 98.3 fL (80-100); MEAN PLATELET VOLUME 7.9 fL (7.4-10.4); MONOCYTES % (AUTO) 8 % (2-9); NEUTROPHILS # (AUTO) 4.07 x10^3/uL (1.8-6.8); NEUTROPHILS % (AUTO) 63 % (42-75); PLATELET COUNT 203 x10^3/uL (130-400); RED BLOOD COUNT 2.74 x10^6/uL (3.82-5.3); RED CELL DISTRIBUTION WIDTH 20.8 % (9.6-15.2)
[2020-05-11 05:24] LABS: ANION GAP 5 mmol/L (5-15); CALCIUM 7.7 mg/dL (8.5-10.1); CHLORIDE 112 mmol/L (98-107); CREATININE 0.93 mg/dL (0.55-1.02)
[2020-05-11] MEDS: MULTIVITS,STRESS FORMULA 1 TABLET PO SCH (08:32)
[2020-05-11] MEDS: MAGNESIUM OXIDE 400 MG TABLET PO SCH (08:32)
[2020-05-11] MEDS: SODIUM BICARBONATE 650 MG TABLET PO SCH ×2 (08:33→20:24)
[2020-05-11] MEDS: ZINC SULFATE 220 MG CAPSULE PO SCH (08:33)
[2020-05-11] MEDS: ASCORBIC ACID 500 MG TABLET PO SCH ×2 (08:33→17:14)
[2020-05-11] MEDS: SODIUM CHLORIDE FLUSH 10ML SYR IVF SCH ×2 (08:34→20:25)
[2020-05-11 08:43] VITALS: BP 145/86
[2020-05-11 13:17] VITALS: BP 135/81
[2020-05-11] MEDS: DAPTOMYCIN 650 MG in SODIUM CHLORIDE 0.9% 100 ML IV SCH (14:02)
[2020-05-11 19:00] VITALS: BP 145/75
[2020-05-12] MEDS: HYDROcodone/APAP 5/325 TABLET PO PRN ×4 (01:21→19:26)
[2020-05-12 02:51] VITALS: BP 102/57
[2020-05-12] MEDS: THYROID 30 MG TABLET PO SCH (05:06)
[2020-05-12 05:32] LABS: BASOPHILS # (AUTO) 0.06 x10^3/uL (0-0.1); BASOPHILS % (AUTO) 1 % (0-1); EOSINOPHILS # (AUTO) 0.29 x10^3/uL (0-0.4); EOSINOPHILS % (AUTO) 4 % (1-7); LYMPHOCYTES % (AUTO) 18 % (22-44); MD NO; MEAN CORPUSCULAR HEMOGLOBIN 32.8 pg (27.0-34.8); MEAN CORPUSCULAR HGB CONC 33.5 g/dL (32.4-35.8); MEAN CORPUSCULAR VOLUME 98.1 fL (80-100); MEAN PLATELET VOLUME 7.8 fL (7.4-10.4); MONOCYTES # (AUTO) 0.45 x10^3/uL (0.2-0.8); MONOCYTES % (AUTO) 7 % (2-9); NEUTROPHILS # (AUTO) 4.68 x10^3/uL (1.8-6.8); NEUTROPHILS % (AUTO) 70 % (42-75); PLATELET COUNT 193 x10^3/uL (130-400); RED BLOOD COUNT 2.64 x10^6/uL (3.82-5.3); RED CELL DISTRIBUTION WIDTH 20.2 % (9.6-15.2)
[2020-05-12 05:44] LABS: ANION GAP 7 mmol/L (5-15); CALCIUM 7.1 mg/dL (8.5-10.1); CHLORIDE 112 mmol/L (98-107); CREATININE 0.85 mg/dL (0.55-1.02)
[2020-05-12 07:03] VITALS: BP 105/64
[2020-05-12] MEDS: ASCORBIC ACID 500 MG TABLET PO SCH ×2 (08:55→15:09)
[2020-05-12] MEDS: MAGNESIUM OXIDE 400 MG TABLET PO SCH (08:55)
[2020-05-12] MEDS: SODIUM CHLORIDE FLUSH 10ML SYR IVF SCH ×2 (08:56→20:42)
[2020-05-12] MEDS: MULTIVITS,STRESS FORMULA 1 TABLET PO SCH (08:56)
[2020-05-12] MEDS: ZINC SULFATE 220 MG CAPSULE PO SCH (08:56)
[2020-05-12] MEDS: SODIUM BICARBONATE 650 MG TABLET PO SCH ×2 (08:56→20:42)
[2020-05-12] MEDS: DAPTOMYCIN 650 MG in SODIUM CHLORIDE 0.9% 100 ML IV SCH (13:28)
[2020-05-12 14:40] VITALS: BP 144/84
[2020-05-12 20:43] VITALS: BP 130/82
[2020-05-13] MEDS: HYDROcodone/APAP 5/325 TABLET PO PRN ×5 (00:07→21:36)
[2020-05-13 00:09] VITALS: BP 143/80
[2020-05-13] MEDS: THYROID 30 MG TABLET PO SCH (05:08)
[2020-05-13 05:58] LABS: BASOPHILS # (AUTO) 0.04 x10^3/uL (0-0.1); BASOPHILS % (AUTO) 1 % (0-1); EOSINOPHILS # (AUTO) 0.27 x10^3/uL (0-0.4); EOSINOPHILS % (AUTO) 5 % (1-7); LYMPHOCYTES # (AUTO) 1.19 x10^3/uL (1-3.4); LYMPHOCYTES % (AUTO) 22 % (22-44); MD NO; MEAN CORPUSCULAR HEMOGLOBIN 33.1 pg (27.0-34.8); MEAN CORPUSCULAR HGB CONC 32.9 g/dL (32.4-35.8); MEAN CORPUSCULAR VOLUME 100.4 fL (80-100); MEAN PLATELET VOLUME 7.8 fL (7.4-10.4); MONOCYTES # (AUTO) 0.43 x10^3/uL (0.2-0.8); MONOCYTES % (AUTO) 8 % (2-9); NEUTROPHILS # (AUTO) 3.48 x10^3/uL (1.8-6.8); NEUTROPHILS % (AUTO) 64 % (42-75); PLATELET COUNT 173 x10^3/uL (130-400); RED BLOOD COUNT 2.49 x10^6/uL (3.82-5.3); RED CELL DISTRIBUTION WIDTH 20.4 % (9.6-15.2)
[2020-05-13 06:42] VITALS: BP 120/71
[2020-05-13] MEDS: MULTIVITS,STRESS FORMULA 1 TABLET PO SCH (07:57)
[2020-05-13] MEDS: MAGNESIUM OXIDE 400 MG TABLET PO SCH (07:57)
[2020-05-13] MEDS: ZINC SULFATE 220 MG CAPSULE PO SCH (07:57)
[2020-05-13] MEDS: SODIUM BICARBONATE 650 MG TABLET PO SCH ×2 (07:57→20:20)
[2020-05-13] MEDS: ASCORBIC ACID 500 MG TABLET PO SCH ×2 (07:59→17:32)
[2020-05-13] MEDS: SODIUM CHLORIDE FLUSH 10ML SYR IVF SCH ×2 (09:51→20:21)
[2020-05-13 14:00] VITALS: BP 133/75
[2020-05-13] MEDS: DAPTOMYCIN 650 MG in SODIUM CHLORIDE 0.9% 100 ML IV SCH (14:30)
[2020-05-13 20:02] VITALS: BP 119/75
[2020-05-14 01:38] VITALS: BP 142/66
[2020-05-14] MEDS: HYDROcodone/APAP 5/325 TABLET PO PRN ×3 (01:56→12:12)
[2020-05-14] MEDS: THYROID 30 MG TABLET PO SCH (04:59)
[2020-05-14 05:42] LABS: BASOPHILS # (AUTO) 0.04 x10^3/uL (0-0.1); BASOPHILS % (AUTO) 1 % (0-1); EOSINOPHILS # (AUTO) 0.24 x10^3/uL (0-0.4); EOSINOPHILS % (AUTO) 5 % (1-7); LYMPHOCYTES # (AUTO) 1.21 x10^3/uL (1-3.4); LYMPHOCYTES % (AUTO) 23 % (22-44); MD NO; MEAN CORPUSCULAR HGB CONC 33.1 g/dL (32.4-35.8); MEAN CORPUSCULAR VOLUME 99.7 fL (80-100); MEAN PLATELET VOLUME 8.1 fL (7.4-10.4); MONOCYTES # (AUTO) 0.42 x10^3/uL (0.2-0.8); MONOCYTES % (AUTO) 8 % (2-9); NEUTROPHILS # (AUTO) 3.46 x10^3/uL (1.8-6.8); NEUTROPHILS % (AUTO) 65 % (42-75); PLATELET COUNT 175 x10^3/uL (130-400); RED BLOOD COUNT 2.57 x10^6/uL (3.82-5.3); RED CELL DISTRIBUTION WIDTH 19.9 % (9.6-15.2)
[2020-05-14 05:50] LABS: ANION GAP 6 mmol/L (5-15); CALCIUM 7.4 mg/dL (8.5-10.1); CHLORIDE 111 mmol/L (98-107); CREATININE 0.94 mg/dL (0.55-1.02)
[2020-05-14 06:24] LABS: HCT (SEDRATE) 25.7 % (34.6-47.8)
[2020-05-14 06:45] VITALS: BP 117/72
[2020-05-14] MEDS: ASCORBIC ACID 500 MG TABLET PO SCH (08:06)
[2020-05-14] MEDS: SODIUM BICARBONATE 650 MG TABLET PO SCH (08:06)
[2020-05-14] MEDS: SODIUM CHLORIDE FLUSH 10ML SYR IVF SCH (08:07)
[2020-05-14] MEDS: MAGNESIUM OXIDE 400 MG TABLET PO SCH (08:07)
[2020-05-14] MEDS: ZINC SULFATE 220 MG CAPSULE PO SCH (08:07)
[2020-05-14] MEDS: MULTIVITS,STRESS FORMULA 1 TABLET PO SCH (08:07)
[2020-05-14] MEDS: ERGOCALCIFEROL 50,000 UNIT CAPSULE PO SCH (08:14)
[2020-05-14] MEDS ORDERED: THYR30TA PO (12:50)
[2020-05-14] MEDS ORDERED: ASCO500T9 PO (12:50)
[2020-05-14] MEDS ORDERED: FOLI-17 PO (12:50)
[2020-05-14] MEDS ORDERED: MULT1TAB76 PO (12:50)
[2020-05-14] MEDS ORDERED: ERGO500017 PO (12:50)
[2020-05-14] MEDS ORDERED: ZINC220C7 PO (12:50)
[2020-05-14] MEDS ORDERED: THIA100T67 PO (12:50)
[2020-05-14] MEDS ORDERED: HYDR-3237 PO (12:50)
[2020-05-14] MEDS ORDERED: MAGN400T50 PO (12:51)
[2020-05-14] MEDS: DAPTOMYCIN 650 MG in SODIUM CHLORIDE 0.9% 100 ML IV SCH (13:50)
[2020-05-14] MEDS ORDERED: DOXY100T PO (16:41)
== END 2020-05-14 15:30 | disposition home or self-care (01) | DRG 710 ==
LOC: ED 13:54 → EDIP 15:53 → 4EST 18:22 → 3N 04-22 10:14
PROVIDERS: ADMIT Internal Medicine; ATTEND Hospitalist
PROC: 0S9D3ZZ Drainage of Left Knee Joint, Percutaneous Approach (ICD-10-PCS; 2020-04-13)
PROC: 30233R1 Transfusion of Nonautologous Platelets into Peripheral Vein, Percutaneous Approach (ICD-10-PCS; 2020-04-15)
PROC: 0S9D0ZZ Drainage of Left Knee Joint, Open Approach (ICD-10-PCS; principal; 2020-04-16 09:00)
PROC: 30233N1 Transfusion of Nonautologous Red Blood Cells into Peripheral Vein, Percutaneous Approach (ICD-10-PCS; 2020-04-17)
PROC: 02HV33Z Insertion of Infusion Device into Superior Vena Cava, Percutaneous Approach (ICD-10-PCS; 2020-04-20)
PROC: B5181ZA Fluoroscopy of Superior Vena Cava using Low Osmolar Contrast, Guidance (ICD-10-PCS; 2020-04-20)
PROC: B548ZZA Ultrasonography of Superior Vena Cava, Guidance (ICD-10-PCS; 2020-04-20)
PROC: 0S9C30Z Drainage of Right Knee Joint with Drainage Device, Percutaneous Approach (ICD-10-PCS; 2020-05-03)
DX: A41.9 Sepsis, unspecified organism (principal); N17.0 Acute kidney failure with tubular necrosis; D61.818 Other pancytopenia; D69.3 Immune thrombocytopenic purpura; E46 Unspecified protein-calorie malnutrition; E87.2 Acidosis; M00.862 Arthritis due to other bacteria, left knee; D68.4 Acquired coagulation factor deficiency; N18.6 End stage renal disease; D62 Acute posthemorrhagic anemia; E11.22 Type 2 diabetes mellitus with diabetic chronic kidney disease; D69.59 Other secondary thrombocytopenia; D63.8 Anemia in other chronic diseases classified elsewhere; E11.649 Type 2 diabetes mellitus with hypoglycemia without coma; E66.01 Morbid (severe) obesity due to excess calories; E83.39 Other disorders of phosphorus metabolism; E83.42 Hypomagnesemia; E83.51 Hypocalcemia; E86.1 Hypovolemia; E87.1 Hypo-osmolality and hyponatremia; E87.5 Hyperkalemia; E87.6 Hypokalemia; F10.20 Alcohol dependence, uncomplicated; Y90.9 Presence of alcohol in blood, level not specified; G89.29 Other chronic pain; J44.9 Chronic obstructive pulmonary disease, unspecified; K76.6 Portal hypertension; L03.116 Cellulitis of left lower limb; M19.90 Unspecified osteoarthritis, unspecified site; M71.21 Synovial cyst of popliteal space [Baker], right knee; Z20.828 Contact with and (suspected) exposure to other viral communicable diseases; Z96.653 Presence of artificial knee joint, bilateral; R31.0 Gross hematuria; E03.9 Hypothyroidism, unspecified; K70.40 Alcoholic hepatic failure without coma; M94.261 Chondromalacia, right knee; S83.281A Other tear of lateral meniscus, current injury, right knee, initial encounter; N05.9 Unspecified nephritic syndrome with unspecified morphologic changes; S83.241A Other tear of medial meniscus, current injury, right knee, initial encounter; W18.39XA Other fall on same level, initial encounter; Z82.49 Family history of ischemic heart disease and other diseases of the circulatory system; Z59.0 Homelessness; Z83.3 Family history of diabetes mellitus; Z87.891 Personal history of nicotine dependence; Z91.19 Patient's noncompliance with other medical treatment and regimen; Z68.42 Body mass index [BMI] 45.0-49.9, adult; Z71.3 Dietary counseling and surveillance; Y92.89 Other specified places as the place of occurrence of the external cause; Y99.8 Other external cause status; Y93.89 Activity, other specified
CPT/HCPCS: 10030; 36415; 36573; 70100; 74018; 75989; 76700; 76770; 77002; 80048; 80053; 80069; 80202; 80307; 81001; 82040; 82247; 82248; 82272; 82306; 82310; 82330; 82436; 82550; 82565; 82570; 82607; 82728; 83010; 83516; 83520; 83540; 83550; 83605; 83615; 83735; 83970; 84100; 84133; 84156; 84300; 84439; 84443; 84481; 84550; 84703; 85014; 85018; 85025; 85045; 85610; 85651; 85810; 86038; 86060; 86063; 86140; 86160; 86162; 86256; 86704; 86706; 86708; 86803; 86850; 86900; 86923; 87040; 87070; 87075; 87086; 87102; 87205; 87340; 89050; 89060; 93970; 96365; 96366; 96368; 96372; 96375; 99285; G0378; J0295; J0690; J0878; J1100; J1170; J1885; J2250; J2274; J2405; J2704; J2795; J3010; J3360; J3370; A9575; C1751; J0330; J2060; J2270; J2370; J3475; J3480; J7030; J7040; P9016; P9035; U0001-CS

== ENCOUNTER 2020-05-22 13:10 | Emergency (ER) | payer MEDICAID ==
[~2020-05-22] VITALS: Ht 160 cm; Wt 105.0 kg
[~2020-05-22 13:10] MED LIST changes: +ASCO500T9 PO; +DOXY100T PO; +ERGO500017 PO; +FOLI-17 PO; +HYDR-3237 PO; +MAGN400T50 PO; +MULT1TAB76 PO; +THIA100T67 PO; +THYR30TA PO; +ZINC220C7 PO
[2020-05-22] MEDS ORDERED: LIDOCAINE-MPF 1%, 5ML INFIL ONE (14:00)
[2020-05-22] MEDS ORDERED: DIPH,PERTUSS(ACELL),TET VAC/PF 0.5 ML IM-VACC ONE (14:00)
--- NOTE | 2020-05-22 14:02 | NUR ---
PER MD, PT TO METABALIZE TO FREEDOM. NO TESTING REQUIRED.
[2020-05-22 15:27] VITALS: BP 138/66
--- NOTE | 2020-05-22 15:28 | NUR ---
PT SLEEPING ON GURNEY. RESP EVEN AND UNLABORED. HELLEN.
--- NOTE | 2020-05-22 16:49 | NUR ---
PT ELOPED FROM FACILITY. PT W/C AND BELONGINGS ARE GONE WELL. NOTIFIED.
== END 2020-05-22 16:51 | disposition home or self-care (01) ==
LOC: ED 13:22
DX: F10.20 Alcohol dependence, uncomplicated (principal); M25.562 Pain in left knee; M25.561 Pain in right knee; E66.9 Obesity, unspecified; Y90.9 Presence of alcohol in blood, level not specified
CPT/HCPCS: 99283

== ENCOUNTER 2020-06-20 09:03 | Emergency (ER) | payer MEDICAID ==
[~2020-06-20] VITALS: Ht 167.6 cm; Wt 106.5 kg
--- NOTE | 2020-06-20 09:55 | NUR ---
PT TO ROOM AT THIS TIME.
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
--- NOTE | 2020-06-20 10:18 | NUR ---
AILYN DE LEON BS FOR EXAM. PT REPORTS BLEEDING "STARTED ABOUT A WEEK AGO". PT TAKING AUGMENTIN - LAST DOSE YESTERDAY.
[2020-06-20] MEDS ORDERED: AMOX1TAB64 PO (10:23)
[2020-06-20 11:14] LABS: ALBUMIN 2.3 g/dL (3.4-5.0); ANION GAP 10 mmol/L (5-15); CALCIUM 7.7 mg/dL (8.5-10.1); CHLORIDE 109 mmol/L (98-107); CREATININE 0.74 mg/dL (0.55-1.02)
[2020-06-20 11:41] LABS: BASOPHILS # (AUTO) 0.05 x10^3/uL (0-0.1); BASOPHILS % (AUTO) 2 % (0-1); EOSINOPHILS # (AUTO) 0.16 x10^3/uL (0-0.4); EOSINOPHILS % (AUTO) 5 % (1-7); LYMPHOCYTES # (AUTO) 0.66 x10^3/uL (1-3.4); LYMPHOCYTES % (AUTO) 21 % (22-44); MD SCAN; MEAN CORPUSCULAR HEMOGLOBIN 33.8 pg (27.0-34.8); MEAN CORPUSCULAR HGB CONC 33.7 g/dL (32.4-35.8); MEAN CORPUSCULAR VOLUME 100.4 fL (80-100); MEAN PLATELET VOLUME 8.8 fL (7.4-10.4); MONOCYTES # (AUTO) 0.26 x10^3/uL (0.2-0.8); MONOCYTES % (AUTO) 8 % (2-9); NEUTROPHILS # (AUTO) 1.98 x10^3/uL (1.8-6.8); NEUTROPHILS % (AUTO) 64 % (42-75); PLATELET COUNT 53 x10^3/uL (130-400); RED CELL DISTRIBUTION WIDTH 17.9 % (9.6-15.2)
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
[2020-06-20] MEDS ORDERED: OXYcodone/APAP 10/325MG TABLET ONE (12:47)
[2020-06-20] MEDS ORDERED: LIDOCAINE-MPF 1%, 5ML ONE (12:47)
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
[2020-06-20] MEDS ORDERED: LIDOCAINE-MPF 1%, 5ML INFIL ONE (13:00)
[2020-06-20] MEDS ORDERED: OXYcodone/APAP 10/325MG TABLET PO ONE (13:00)
--- NOTE | 2020-06-20 13:00 | NUR ---
AILYN DE LEON AT FOR TX. Addendum: 06/20/20 at 1343 by SUSU VERBAL PERMISSION FOR TX OBTAINED PER AILYN DE LEON.
[2020-06-20] MEDS ORDERED: NEOSPORIN OINT. PKT 1 PACKET ONE (13:38)
--- NOTE | 2020-06-20 13:53 | NUR ---
LT WOUND AREA CLEANSED W/ WATER. BACITRACIN, ADAPTEC, GAUZE DRESSING, SHEILA WRAP APPLIED TO LT KNEE PER AILYN HERRERA.
--- NOTE | 2020-06-20 14:40 | NUR ---
DR HARTLEY AT
--- NOTE | 2020-06-20 15:49 | NUR ---
ERP AWAITING LAB RESULT
--- NOTE | 2020-06-20 16:35 | NUR ---
CALLED LAB RE: PENDING RESULTS. PER TECH, SLIDES WERE REDONE AND SHE EXPECTS THE RESULTS SOON. WILL NOTIFY ERP.
--- NOTE | 2020-06-20 16:52 | NUR ---
PT ENDORSED TO BREAK RN. PT NOTIFIED OF PENDING LAB RESULT.
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
--- NOTE | 2020-06-20 17:35 | NUR ---
PT REPORT FROM MEKA SLOAN RN.
--- NOTE | 2020-06-20 17:36 | NUR ---
LAB RESULT STILL PENDING; CALLED LAB - NO ANSWER.
--- NOTE | 2020-06-20 17:48 | NUR ---
CALLED LAB RE: PENDING LAB RESULT. TRANSFERRED MULITIPLE TIMES. SPOKE W/ "PEARLY" IN CHEMISTRY, SHE HASN'T RECEIVED THE SAMPLE BUT WILL LOOK FOR IT.
--- NOTE | 2020-06-20 17:51 | NUR ---
[facility], LAB - URINE DEPT, CALLED ED; STATES PENDING RESULTS ARE "SEND OUT" LABS. WILL NOTIFY ERP
[2020-06-20 18:51] VITALS: BP 174/92
== END 2020-06-20 18:54 ==
LOC: ED 10:10
DX: M25.462 Effusion, left knee (principal); L02.416 Cutaneous abscess of left lower limb; M79.89 Other specified soft tissue disorders; M79.605 Pain in left leg
CPT/HCPCS: 20610; 36415; 80048; 82040; 82945; 83615; 84157; 84560; 85025; 85810; 87070; 87205; 89050; 89060; 99285

== ENCOUNTER 2020-08-16 15:36 | Inpatient (IN) | payer MEDICAID ==
[~2020-08-16] VITALS: Ht 167.6 cm; Wt 104.2 kg
[~2020-08-16 15:36] MED LIST changes: +AMOX1TAB64 PO
--- NOTE | 2020-08-16 15:47 | NUR ---
THIS TECH DID EKG
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
[2020-08-16] MEDS ORDERED: LORazepam 2 MG/ML, 1ML IVPush PRN (16:00)
[2020-08-16] MEDS ORDERED: SODIUM CHLORIDE FLUSH 10ML SYR IVF ONE (16:00)
[2020-08-16] MEDS ORDERED: SODIUM CHLORIDE 0.9% 1,000ML IVBOLUS ONE (16:00)
[2020-08-16] MEDS ORDERED: LORazepam 2 MG/ML, 1ML ONE (16:02)
[2020-08-16 16:30] LABS: ALANINE AMINOTRANSFERASE 60 U/L (12-78); ALBUMIN 2.5 g/dL (3.4-5.0); ANION GAP 10 mmol/L (5-15); CALCIUM 7.9 mg/dL (8.5-10.1); CHLORIDE 106 mmol/L (98-107); CREATININE 0.86 mg/dL (0.55-1.02)
--- NOTE | 2020-08-16 16:37 | NUR ---
BREAK RN: PT REPOSITIONED IN BED, LINENS CHANGED, PROVIDED WITH WARM BLANKETS. SEIZURE PADS IN PLACE, PT DENIES ANY FURTHER NEEDS OR CONCERNS AT THIS TIME, CALL LIGHT IN REACH.
[2020-08-16 16:38] LABS: ALKALINE PHOSPHATASE 141 U/L (45-117); BILIRUBIN,TOTAL 5.7 mg/dL (0.2-1.0); TOTAL PROTEIN 8.4 g/dL (6.4-8.2)
[2020-08-16 16:44] LABS: MEAN CORPUSCULAR HEMOGLOBIN 34.7 pg (27.0-34.8); MEAN CORPUSCULAR HGB CONC 34.2 g/dL (32.4-35.8); MEAN CORPUSCULAR VOLUME 101.5 fL (80-100); MEAN PLATELET VOLUME 9.3 fL (7.4-10.4); PLATELET COUNT 62 x10^3/uL (130-400); RED BLOOD COUNT 3.13 x10^6/uL (3.82-5.3); RED CELL DISTRIBUTION WIDTH 16.6 % (9.6-15.2)
[2020-08-16 16:47] LABS: BASOPHILS # (AUTO) 0.07 x10^3/uL (0-0.1); BASOPHILS % (AUTO) 2 % (0-1); EOSINOPHILS # (AUTO) 0.12 x10^3/uL (0-0.4); EOSINOPHILS % (AUTO) 3 % (1-7); LYMPHOCYTES # (AUTO) 1.01 x10^3/uL (1-3.4); LYMPHOCYTES % (AUTO) 28 % (22-44); MD SCAN; MONOCYTES # (AUTO) 0.31 x10^3/uL (0.2-0.8); MONOCYTES % (AUTO) 9 % (2-9); NEUTROPHILS # (AUTO) 2.09 x10^3/uL (1.8-6.8); NEUTROPHILS % (AUTO) 58 % (42-75)
--- NOTE | 2020-08-16 16:53 | NUR ---
PT ATTEMPTING TO PROVIDE UA SAMPLE AT THIS TIME.
[2020-08-16] MEDS ORDERED: SODIUM CHLORIDE 0.9% 1,000 ML IV ONE (17:00)
[2020-08-16] MEDS ORDERED: SODIUM CHLORIDE FLUSH 10ML SYR IVF PRN (17:00)
--- NOTE | 2020-08-16 17:11 | NUR ---
PT RESTING ON LIZETTE. HELLEN. VSS. PER ERP DR. SATNAM DAVIS FOR PT TO EAT. DIET TRAY ORDERED.
[2020-08-16 17:29] LABS: AMPHETAMINE SCREEN, URINE Negative (Negative); BARBITURATE SCREEN, URINE Negative (Negative); BENZODIAZEPINE SCREEN, URINE Negative (Negative); CANNABINOID SCREEN, URINE Negative (Negative); COCAINE SCREEN, URINE Negative (Negative); METHADONE SCREEN, URINE Negative (Negative); OPIATE SCREEN, URINE Negative (Negative)
--- NOTE | 2020-08-16 17:31 | NUR ---
PT PROVIDED W/ DINNER TRAY.
[2020-08-16] MEDS ORDERED: POTASSIUM CHLORIDE 10 MEQ, MVI ADULT 10 ML, FOLIC ACID 1 MG, MAGNESIUM SULFATE 1 GM in ... IV SCH (18:17)
--- NOTE | 2020-08-16 18:23 | NUR ---
PT RESTING ON GURNEY. NADN. DENISE.
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
[2020-08-16] MEDS ORDERED: ONDANSETRON 2MG/ML, 2ML IV PRN (18:30)
[2020-08-16] MEDS ORDERED: BISACODYL 10 MG SUPP PR PRN (18:30)
[2020-08-16] MEDS ORDERED: LORazepam 2 MG/ML, 1ML IV PRN ×3 (18:30)
[2020-08-16] MEDS ORDERED: FOLIC ACID 5 MG/ML IM ONE (18:30)
[2020-08-16] MEDS ORDERED: ALUMINUM/MAG/SIMETHICONE 30 ML UDC PO PRN (18:30)
[2020-08-16] MEDS ORDERED: THIAMINE 200 MG in DEXTROSE 5% 50 ML IVPB ONE (18:30)
[2020-08-16 19:40] VITALS: BP 133/73
[2020-08-16] MEDS: LORazepam 2 MG/ML, 1ML IV PRN (20:27)
[2020-08-16] MEDS ORDERED: FOLIC ACID 1 MG TABLET PO ONE (20:30)
[2020-08-17] MEDS: LORazepam 2 MG/ML, 1ML IV PRN ×3 (00:41→20:08)
[2020-08-17 01:26] VITALS: BP 125/80
[2020-08-17 06:21] LABS: ANION GAP 8 mmol/L (5-15); CALCIUM 7.7 mg/dL (8.5-10.1); CHLORIDE 112 mmol/L (98-107)
[2020-08-17 06:37] LABS: MEAN CORPUSCULAR HEMOGLOBIN 34.3 pg (27.0-34.8); MEAN CORPUSCULAR HGB CONC 33.4 g/dL (32.4-35.8); MEAN CORPUSCULAR VOLUME 102.6 fL (80-100); MEAN PLATELET VOLUME 8.9 fL (7.4-10.4); RED BLOOD COUNT 2.62 x10^6/uL (3.82-5.3)
[2020-08-17 06:38] LABS: PLATELET COUNT 44 x10^3/uL (130-400)
[2020-08-17 06:39] LABS: BASOPHILS # (AUTO) 0.03 x10^3/uL (0-0.1); BASOPHILS % (AUTO) 2 % (0-1); EOSINOPHILS # (AUTO) 0.12 x10^3/uL (0-0.4); EOSINOPHILS % (AUTO) 6 % (1-7); LYMPHOCYTES # (AUTO) 0.54 x10^3/uL (1-3.4); LYMPHOCYTES % (AUTO) 26 % (22-44); MD SCAN; MONOCYTES # (AUTO) 0.21 x10^3/uL (0.2-0.8); MONOCYTES % (AUTO) 10 % (2-9); NEUTROPHILS # (AUTO) 1.16 x10^3/uL (1.8-6.8); NEUTROPHILS % (AUTO) 56 % (42-75)
[2020-08-17 06:51] LABS: ALANINE AMINOTRANSFERASE 47 U/L (12-78); ALKALINE PHOSPHATASE 132 U/L (45-117); CREATININE 0.65 mg/dL (0.55-1.02); TOTAL PROTEIN 6.8 g/dL (6.4-8.2)
[2020-08-17 06:54] VITALS: BP 159/81
[2020-08-17] MEDS: ACETYLCYSTEINE 600 MG CAPSULE PO SCH ×2 (07:59→20:08)
[2020-08-17] MEDS: SODIUM CHLORIDE 0.9% 1,000 ML IV SCH (08:00)
[2020-08-17] MEDS ORDERED: POTASSIUM CHLORIDE 20 MEQ TAB.ER.PRT PO ONE (08:00)
[2020-08-17 13:05] VITALS: BP 152/90
[2020-08-17 19:27] VITALS: BP 172/106
[2020-08-17] MEDS: DIPHENHYDRAMINE 50 MG CAPSULE PO PRN (20:09)
[2020-08-17] MEDS ORDERED: CARVEDILOL 3.125 MG TABLET PO SCH (21:00)
[2020-08-18] MEDS: SODIUM CHLORIDE 0.9% 1,000 ML IV SCH ×2 (00:35→15:09)
[2020-08-18 01:27] VITALS: BP 139/78
[2020-08-18] MEDS: LORazepam 2 MG/ML, 1ML IV PRN ×2 (04:51→08:28)
[2020-08-18 04:59] LABS: MEAN CORPUSCULAR HGB CONC 33.9 g/dL (32.4-35.8); MEAN CORPUSCULAR VOLUME 103.1 fL (80-100); RED BLOOD COUNT 2.71 x10^6/uL (3.82-5.3); RED CELL DISTRIBUTION WIDTH 16.9 % (9.6-15.2)
[2020-08-18 05:01] LABS: % IRON SATURATION 45 % (20-55); ALBUMIN 1.9 g/dL (3.4-5.0); ANION GAP 5 mmol/L (5-15); CALCIUM 7.9 mg/dL (8.5-10.1); CHLORIDE 112 mmol/L (98-107); CREATININE 0.58 mg/dL (0.55-1.02); IRON LEVEL 72 mcg/dL (50-170); TOTAL IRON BINDING CAPACITY 160 mcg/dL (250-450)
[2020-08-18 05:05] LABS: ALANINE AMINOTRANSFERASE 41 U/L (12-78); ALKALINE PHOSPHATASE 126 U/L (45-117); BILIRUBIN,TOTAL 4.5 mg/dL (0.2-1.0); TOTAL PROTEIN 6.9 g/dL (6.4-8.2)
[2020-08-18 05:55] LABS: MEAN PLATELET VOLUME 9.4 fL (7.4-10.4)
[2020-08-18 06:00] LABS: PLATELET COUNT 49 x10^3/uL (130-400)
[2020-08-18 06:07] LABS: BASOPHILS # (AUTO) 0.03 x10^3/uL (0-0.1); BASOPHILS % (AUTO) 1 % (0-1); EOSINOPHILS # (AUTO) 0.13 x10^3/uL (0-0.4); EOSINOPHILS % (AUTO) 5 % (1-7); LYMPHOCYTES # (AUTO) 0.64 x10^3/uL (1-3.4); LYMPHOCYTES % (AUTO) 26 % (22-44); MD SCAN; MONOCYTES # (AUTO) 0.24 x10^3/uL (0.2-0.8); MONOCYTES % (AUTO) 10 % (2-9); NEUTROPHILS % (AUTO) 57 % (42-75)
[2020-08-18 08:21] VITALS: BP 162/99
[2020-08-18] MEDS: CARVEDILOL 3.125 MG TABLET PO SCH ×3 (08:27→20:48)
[2020-08-18] MEDS: ACETYLCYSTEINE 600 MG CAPSULE PO SCH ×2 (08:27→20:48)
[2020-08-18 13:08] VITALS: BP 143/89
[2020-08-18 18:37] VITALS: BP 146/83
[2020-08-18] MEDS: DIPHENHYDRAMINE 50 MG CAPSULE PO PRN (20:54)
[2020-08-19 00:27] VITALS: BP 165/100
[2020-08-19 06:07] LABS: MEAN CORPUSCULAR HEMOGLOBIN 34.6 pg (27.0-34.8); MEAN CORPUSCULAR HGB CONC 33.1 g/dL (32.4-35.8); MEAN CORPUSCULAR VOLUME 104.5 fL (80-100); MEAN PLATELET VOLUME 9.7 fL (7.4-10.4); PLATELET COUNT 54 x10^3/uL (130-400); RED BLOOD COUNT 2.79 x10^6/uL (3.82-5.3); RED CELL DISTRIBUTION WIDTH 17.1 % (9.6-15.2)
[2020-08-19 06:37] LABS: MD YES
[2020-08-19 06:40] LABS: BANDS%(MANUAL) 3 % (0-7); BASOS#(MANUAL) 0.03 x10^3/uL (0-0.1); BASOS% (MANUAL) 1 % (0-1); EOS#(MANUAL) 0.06 x10^3/uL (0.0-0.4); EOS% (MANUAL) 2 % (1-7); LYMPHS% (MANUAL) 25 % (22-44); MONOS#(MANUAL) 0.19 x10^3/uL (0.3-2.7); MONOS% (MANUAL) 6 % (2-9); SEG#(MANUAL) 2.02 x10^3/uL (1.8-6.8); SEGS% (MANUAL) 63 % (42-75)
[2020-08-19 06:41] LABS: ANISOCYTOSIS 1+
[2020-08-19 06:42] LABS: <PLATELET ESTIMATE> DECREASED; <PLT MORPHOLOGY> NORMAL PLT MORPH; POLYCHROMASIA 1+
[2020-08-19] MEDS ORDERED: MAGNESIUM SULFATE PMX 4GM/100M 100 ML IV ONE (08:00)
[2020-08-19] MEDS: SODIUM CHLORIDE 0.9% 1,000 ML IV SCH (08:00)
[2020-08-19] MEDS: ACETYLCYSTEINE 600 MG CAPSULE PO SCH (08:56)
[2020-08-19 08:57] VITALS: BP 148/89
[2020-08-19] MEDS ORDERED: CALCIUM/VITAMIN D3 250-125 TABLET PO SCH (09:00)
[2020-08-19 11:32] LABS: OCCULT BLOOD POSITIVE (NEGATIVE)
[2020-08-19] MEDS ORDERED: CARVEDILOL 6.25 MG TABLET PO SCH (18:00)
== END 2020-08-19 13:19 | disposition left against medical advice (07) | DRG 53 ==
LOC: ED 16:59 → EDIP 17:00 → 4WST 18:38
PROVIDERS: ADMIT Family Medicine; ATTEND Internal Medicine
DX: G40.509 Epileptic seizures related to external causes, not intractable, without status epilepticus (principal); D53.9 Nutritional anemia, unspecified; D61.818 Other pancytopenia; E83.51 Hypocalcemia; E87.6 Hypokalemia; F10.229 Alcohol dependence with intoxication, unspecified; F10.239 Alcohol dependence with withdrawal, unspecified; G47.00 Insomnia, unspecified; I10 Essential (primary) hypertension; K70.10 Alcoholic hepatitis without ascites; K70.30 Alcoholic cirrhosis of liver without ascites; K92.2 Gastrointestinal hemorrhage, unspecified; Z96.653 Presence of artificial knee joint, bilateral; E66.01 Morbid (severe) obesity due to excess calories; Z59.0 Homelessness; Z79.2 Long term (current) use of antibiotics; Z83.3 Family history of diabetes mellitus; Z68.37 Body mass index [BMI] 37.0-37.9, adult; Z79.899 Other long term (current) drug therapy; Y90.9 Presence of alcohol in blood, level not specified; Z53.29 Procedure and treatment not carried out because of patient's decision for other reasons
CPT/HCPCS: 36415; 71045; 76700; 80053; 80307; 82272; 82330; 82607; 83540; 83550; 83690; 83735; 84443; 84703; 85025; 93005; G0378; J2405; J3411; J3475; J3480; J7042; J2060; J7030

== ENCOUNTER 2020-09-05 12:31 | Emergency (ER) | payer SELFPAY ==
[~2020-09-05] VITALS: Ht 167.6 cm; Wt 100.0 kg
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
[2020-09-05 13:24] LABS: BASOPHILS % (AUTO) 1 % (0-1); EOSINOPHILS % (AUTO) 7 % (1-7); LYMPHOCYTES % (AUTO) 22 % (22-44); MEAN CORPUSCULAR HEMOGLOBIN 34.7 pg (27.0-34.8); MEAN CORPUSCULAR HGB CONC 32.9 g/dL (32.4-35.8); MEAN PLATELET VOLUME 9.2 fL (7.4-10.4); MONOCYTES % (AUTO) 8 % (2-9); NEUTROPHILS % (AUTO) 62 % (42-75); PLATELET COUNT 66 x10^3/uL (130-400); RED BLOOD COUNT 2.96 x10^6/uL (3.82-5.3); RED CELL DISTRIBUTION WIDTH 17.5 % (9.6-15.2)
[2020-09-05 13:33] LABS: CHLORIDE 112 mmol/L (98-107)
[2020-09-05 13:47] LABS: ALANINE AMINOTRANSFERASE 45 U/L (12-78); ALBUMIN 2.2 g/dL (3.4-5.0); ALKALINE PHOSPHATASE 158 U/L (45-117); ANION GAP 8 mmol/L (5-15); BILIRUBIN,TOTAL 5.9 mg/dL (0.2-1.0); CALCIUM 7.5 mg/dL (8.5-10.1); CREATININE 0.63 mg/dL (0.55-1.02); TOTAL PROTEIN 8.4 g/dL (6.4-8.2)
--- NOTE | 2020-09-05 14:00 | NUR ---
PT SLEEPING, RESPS EVEN AND UNLABORED, NO SEIZURE ACTIVITY NOTED. NSR ON BIOMEDICAL ENGINEERING TECHNOLOGIST WITH NO ECTOPY.
[2020-09-05 14:20] LABS: MD MORPH REVIEW ONLY
[2020-09-05 14:21] LABS: ANISOCYTOSIS 1+; POLYCHROMASIA 1+
[2020-09-05 14:22] LABS: <PLATELET ESTIMATE> DECREASED; <PLT MORPHOLOGY> NORMAL PLT MORPH
--- NOTE | 2020-09-05 14:28 | NUR ---
CHRISTIANE VIVAR AWARE PT HAS CRITICAL ETOH 0.45.
[2020-09-05 14:36] LABS: MICROSCOPIC INDICATED
--- NOTE | 2020-09-05 15:05 | NUR ---
pt sleeping intermittently, awakens to voice. resps even and unlabored. all results up, chart up for recheck, awaiting MD and dispo.
--- NOTE | 2020-09-05 16:01 | NUR ---
report given to LORI Griffin at bedside. pt awakens to voice. 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 no n/v. no seizure activity noted. awaiting dc orders and paperwork from [facility] at this time.
--- NOTE | 2020-09-05 16:04 | NUR ---
REPORT RECEIVED FROM LORI CARPENTER. [facility]
[2020-09-05 16:20] VITALS: BP 125/68
== END 2020-09-05 16:43 | disposition home or self-care (01) ==
LOC: ED 13:13
DX: F10.120 Alcohol abuse with intoxication, uncomplicated (principal); D69.6 Thrombocytopenia, unspecified; N39.0 Urinary tract infection, site not specified; D64.9 Anemia, unspecified; Y90.9 Presence of alcohol in blood, level not specified
CPT/HCPCS: 36415; 80053; 80307; 81001; 82140; 83690; 84703; 85025; 87077; 87086; 87147; 87186; 93005; 99285

== ENCOUNTER 2020-09-12 22:45 | Emergency (ER) | payer MEDICAID, OTHER ==
[~2020-09-12] VITALS: Ht 167.6 cm; Wt 100.0 kg
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
--- NOTE | 2020-09-12 23:46 | NUR ---
PT GIVEN WARM BLANKET, STATES FEELING OK, PT DOZING INTERMITTENTLY, AND LABS DRAWN.
[2020-09-13 00:03] LABS: ALANINE AMINOTRANSFERASE 35 U/L (12-78); ALBUMIN 2.1 g/dL (3.4-5.0); ANION GAP 7 mmol/L (5-15); BASOPHILS % (AUTO) 1 % (0-1); CALCIUM 7.6 mg/dL (8.5-10.1); CHLORIDE 111 mmol/L (98-107); CREATININE 0.67 mg/dL (0.55-1.02); EOSINOPHILS % (AUTO) 6 % (1-7); LYMPHOCYTES % (AUTO) 25 % (22-44); MEAN CORPUSCULAR HEMOGLOBIN 35.4 pg (27.0-34.8); MEAN CORPUSCULAR HGB CONC 33.3 g/dL (32.4-35.8); MEAN PLATELET VOLUME 9.1 fL (7.4-10.4); MONOCYTES % (AUTO) 7 % (2-9); NEUTROPHILS % (AUTO) 60 % (42-75); PLATELET COUNT 72 x10^3/uL (130-400); RED BLOOD COUNT 3.08 x10^6/uL (3.82-5.3); RED CELL DISTRIBUTION WIDTH 17.3 % (9.6-15.2)
[2020-09-13 00:07] LABS: ALKALINE PHOSPHATASE 156 U/L (45-117); BILIRUBIN,TOTAL 8.4 mg/dL (0.2-1.0); TOTAL PROTEIN 8.8 g/dL (6.4-8.2)
[2020-09-13 00:10] LABS: MD NO
--- NOTE | 2020-09-13 00:18 | NUR ---
PT GOT OUT OF BED, VERY UNSTEADY WALKING, WAS PUT BACK INTO BED AND GIVEN BSC TO URINATE, AND WAS PUT BACK INTO [facility] WITH SP02 AND BP CUFF PLACED BACK ON. NO OTHER NEEDS AT THIS TIME
--- NOTE | 2020-09-13 01:48 | NUR ---
PT. RESTING ON GURNEY WITH EYES CLOSED. EVEN, NON-LABORED RESPIRATIONS VISIBLE. CONTINUOUS PULSE OX AND B/P MONITORS IN PLACE. ALL SAFETY MEASURES OBSERVED.
--- NOTE | 2020-09-13 03:41 | NUR ---
ATTEMPT TO GET PT UP, PT STILL A LITTLE UNSTEADY AND SLURRING SPEECH, WILL REASSESS SOON
[2020-09-13 04:44] VITALS: BP 127/73
--- NOTE | 2020-09-13 04:54 | NUR ---
PT ABLE TO AMBULATE TO RESTROOM WITH NO HELP. PT NORMALLY USES WALKER AT HOME, BUT IS ABLE TO HOLD HER OWN WEIGHT
== END 2020-09-13 05:13 | disposition home or self-care (01) ==
LOC: ED 09-13 03:46
DX: G31.2 Degeneration of nervous system due to alcohol (principal); F10.120 Alcohol abuse with intoxication, uncomplicated; Z72.9 Problem related to lifestyle, unspecified; Y90.0 Blood alcohol level of less than 20 mg/100 ml
CPT/HCPCS: 36415; 80053; 80307; 85025; 99285

== ENCOUNTER → 2020-11-02 | Emergency (ER) | payer MEDICAID ==
[~2020-11-02] VITALS: Ht 167.6 cm; Wt 106.4 kg
[~2020-11-02] MED LIST changes: -CLIN300C8 PO; +CLIN300C9 PO; +HYDROmorphone 1 MG/ML, 1ML INJ ONE; +HYDROmorphone 2 MG/ML, 1ML ONE; +OMNIPAQUE 350 MG/ML, 100ML BOTTLE ONE; +ONDANSETRON 2MG/ML, 2ML IVPush ONE; +ONDANSETRON 2MG/ML, 2ML ONE; +SODIUM CHLORIDE 0.9% 1,000 ML IV ONE; +SODIUM CHLORIDE 0.9% 1,000ML IVBOLUS ONE
[2020-11-02 18:38] LABS: BASOPHILS % (AUTO) 1 % (0-1); EOSINOPHILS % (AUTO) 0 % (1-7); LYMPHOCYTES % (AUTO) 26 % (22-44); MEAN CORPUSCULAR HEMOGLOBIN 34.9 pg (27.0-34.8); MEAN CORPUSCULAR HGB CONC 33.5 g/dL (32.4-35.8); MONOCYTES % (AUTO) 9 % (2-9); NEUTROPHILS % (AUTO) 63 % (42-75); PLATELET COUNT 101 x10^3/uL (130-400); RED BLOOD COUNT 2.91 x10^6/uL (3.82-5.3); RED CELL DISTRIBUTION WIDTH 15.5 % (9.6-15.2)
[2020-11-02 18:47] LABS: ALBUMIN 1.4 g/dL (3.4-5.0); CALCIUM 7.8 mg/dL (8.5-10.1); CHLORIDE 110 mmol/L (98-107)
[2020-11-02 18:56] LABS: ALANINE AMINOTRANSFERASE 39 U/L (12-78); ALKALINE PHOSPHATASE 302 U/L (45-117); ANION GAP 6 mmol/L (5-15); BILIRUBIN,TOTAL 9.8 mg/dL (0.2-1.0); CREATININE 1.22 mg/dL (0.55-1.02); TOTAL PROTEIN 7.4 g/dL (6.4-8.2)
[2020-11-02 19:22] LABS: MD SCAN
[2020-11-02] MEDS: HYDROmorphone 2 MG/ML, 1ML IVPush PRN ×2 (20:18→21:53)
--- NOTE | 2020-11-02 20:47 | NUR ---
CT DELAY- US IN ROOM.
--- NOTE | 2020-11-02 21:24 | NUR ---
REPORT FROM LORI CALLAHAN. FIRST CONTACT. BEDSIDE US BEING DONE. VSS. RR EQUAL AND UNLABORED. WILL CONTINUE TO MONITOR.
--- NOTE | 2020-11-02 21:57 | NUR ---
REMEDICATED FOR INCREASING PAIN. BEDSIDE U/S NEARLY COMPLETE. VSS. FAMILY AT BEDSIDE. WILL CONTINUE TO MONITOR. NSR.
--- NOTE | 2020-11-02 22:40 | NUR ---
RR EQUAL AND UNLABORED, VSS. REPORTS DECREASE IN PAIN FROM 8/10 TO 4/10. PT TO BE DC HOME.
[2020-11-02 23:15] VITALS: BP 122/71
== END ==
LOC: ED 20:36
DX: G89.29 Other chronic pain (principal); R10.11 Right upper quadrant pain; R10.13 Epigastric pain; K70.30 Alcoholic cirrhosis of liver without ascites; J90 Pleural effusion, not elsewhere classified; R11.2 Nausea with vomiting, unspecified
CPT/HCPCS: 36415; 74177; 76700; 80053; 80320; 83690; 84703; 85025; 96361; 96374; 96375; 96376; 99285; J1170; J2405; J7030; Q9967; G0480

== ENCOUNTER 2020-11-06 17:38 | Emergency (ER) | payer MEDICAID ==
[~2020-11-06] VITALS: Ht 167.6 cm; Wt 114.1 kg
[~2020-11-06 17:38] MED LIST changes: -HYDROmorphone 1 MG/ML, 1ML INJ ONE; -HYDROmorphone 2 MG/ML, 1ML ONE; -OMNIPAQUE 350 MG/ML, 100ML BOTTLE ONE; -ONDANSETRON 2MG/ML, 2ML IVPush ONE; -ONDANSETRON 2MG/ML, 2ML ONE; -SODIUM CHLORIDE 0.9% 1,000 ML IV ONE; -SODIUM CHLORIDE 0.9% 1,000ML IVBOLUS ONE
[2020-11-06 18:12] LABS: MEAN CORPUSCULAR HEMOGLOBIN 34.5 pg (27.0-34.8); MEAN CORPUSCULAR HGB CONC 33.2 g/dL (32.4-35.8); MEAN PLATELET VOLUME 9.1 fL (7.4-10.4); PLATELET COUNT 113 x10^3/uL (130-400); RED BLOOD COUNT 2.75 x10^6/uL (3.82-5.3); RED CELL DISTRIBUTION WIDTH 15.6 % (9.6-15.2)
[2020-11-06 18:15] LABS: INTERNATIONAL NORMALIZED RATIO 2.07 (0.93-1.1); PROTHROMBIN TIME 21.8 Seconds (9.6-11.5)
[2020-11-06 18:16] LABS: ALANINE AMINOTRANSFERASE 39 U/L (12-78); ALBUMIN 1.4 g/dL (3.4-5.0); ANION GAP 8 mmol/L (5-15); CALCIUM 7.3 mg/dL (8.5-10.1); CHLORIDE 108 mmol/L (98-107); CREATININE 1.07 mg/dL (0.55-1.02)
[2020-11-06 18:21] LABS: ALKALINE PHOSPHATASE 284 U/L (45-117); BILIRUBIN,TOTAL 9.7 mg/dL (0.2-1.0); TOTAL PROTEIN 7.5 g/dL (6.4-8.2)
--- NOTE | 2020-11-06 18:27 | NUR ---
PT TO ROOM FROM LOBBY WITH STEADY GAIT.
[2020-11-06 18:45] VITALS: BP 136/55
[2020-11-06 18:50] LABS: MD YES
[2020-11-06 18:59] LABS: BANDS%(MANUAL) 4 % (0-7); BASOS% (MANUAL) 1 % (0-1); EOS% (MANUAL) 2 % (1-7); LYMPHS% (MANUAL) 8 % (22-44); METAMYELOCYTES% (MANUAL) 1 % (0-1); MONOS% (MANUAL) 5 % (2-9); SEGS% (MANUAL) 79 % (42-75)
[2020-11-06 19:00] LABS: ANISOCYTOSIS 1+; POLYCHROMASIA 1+
[2020-11-06] MEDS ORDERED: HYDROcodone/APAP 5/325 TABLET PO ONE (19:00)
[2020-11-06 19:01] LABS: OVALOCYTES 1+
[2020-11-06 19:03] LABS: <PLATELET ESTIMATE> DECREASED; <PLT MORPHOLOGY> NORMAL PLT MORPH
[2020-11-06 19:08] LABS: MICROSCOPIC INDICATED
[2020-11-06] MEDS ORDERED: HYDROcodone/APAP 5/325 TABLET ONE (19:10)
== END 2020-11-06 19:30 | disposition home or self-care (01) ==
LOC: ED 18:54
DX: J18.9 Pneumonia, unspecified organism (principal); R06.02 Shortness of breath; Z20.828 Contact with and (suspected) exposure to other viral communicable diseases; R10.9 Unspecified abdominal pain; R94.31 Abnormal electrocardiogram [ECG] [EKG]; Z87.891 Personal history of nicotine dependence
CPT/HCPCS: 36415; 71045; 80053; 81001; 83690; 84703; 85025; 85610; 85730; 87086; 87635; 93005; 99285

== ENCOUNTER 2020-11-07 14:02 | Emergency (ER) | payer MEDICAID ==
[~2020-11-07] VITALS: Ht 167.6 cm; Wt 115.4 kg
[2020-11-07 14:43] VITALS: BP 141/64
[2020-11-07 15:23] LABS: ALANINE AMINOTRANSFERASE 37 U/L (12-78); ALBUMIN 1.4 g/dL (3.4-5.0); ANION GAP 8 mmol/L (5-15); CHLORIDE 107 mmol/L (98-107); CREATININE 1.11 mg/dL (0.55-1.02); MEAN CORPUSCULAR HEMOGLOBIN 35.6 pg (27.0-34.8); MEAN CORPUSCULAR HGB CONC 34.3 g/dL (32.4-35.8); MEAN PLATELET VOLUME 8.3 fL (7.4-10.4); PLATELET COUNT 95 x10^3/uL (130-400); RED BLOOD COUNT 2.61 x10^6/uL (3.82-5.3); RED CELL DISTRIBUTION WIDTH 16.2 % (9.6-15.2)
[2020-11-07 15:25] LABS: ALKALINE PHOSPHATASE 268 U/L (45-117); BILIRUBIN,TOTAL 10.1 mg/dL (0.2-1.0); TOTAL PROTEIN 7.2 g/dL (6.4-8.2)
[2020-11-07 16:06] LABS: MD YES
[2020-11-07 16:11] LABS: BAND#(MANUAL) 0.42 x10^3/uL; BANDS%(MANUAL) 7 % (0-7); BASOS#(MANUAL) 0.12 x10^3/uL (0-0.1); BASOS% (MANUAL) 2 % (0-1); LYMPHS% (MANUAL) 5 % (22-44); METAMYELOCYTES% (MANUAL) 5 % (0-1); MONOS#(MANUAL) 0.06 x10^3/uL (0.3-2.7); MONOS% (MANUAL) 1 % (2-9); SEGS% (MANUAL) 80 % (42-75)
[2020-11-07 16:19] LABS: ANISOCYTOSIS 1+; OVALOCYTES 1+; POLYCHROMASIA 1+
[2020-11-07 16:20] LABS: <PLATELET ESTIMATE> DECREASED; <PLT MORPHOLOGY> NORMAL PLT MORPH
== END 2020-11-07 17:39 | disposition left against medical advice (07) ==
LOC: ED 17:35
DX: R06.00 Dyspnea, unspecified (principal); R42 Dizziness and giddiness; R10.9 Unspecified abdominal pain; R00.0 Tachycardia, unspecified; I25.2 Old myocardial infarction
CPT/HCPCS: 36415; 71045; 80053; 85025; 93005; 99285